=== PATIENT | male | born 1990 | race Caucasian/White ===

== ENCOUNTER 2024-07-27 10:08 | Emergency (ER) | payer OTHER, SELFPAY ==
[2024-07-27 10:14] VITALS: BP 157/95; PULSE 77; TEMP 36.6; O2SAT 100; BMI 24.0
[2024-07-27 10:52] LABS: Basophils Percent Auto 0.6 % (0.2-2.0); Eosinophils Absolute Auto 0.2 10^3/uL (0.0-0.7); Eosinophils Percent Auto 4.8 % (0.9-7.0); Immature Granulocytes Abs Auto 0.01 10^3/uL (0.00-0.03); Immature Granulocytes Pct Auto 0.2 % (0.0-0.5); Lymphocytes Absolute Auto 2.1 10^3/uL (1.2-3.8); Mean Corpuscular HGB Conc 33.3 g/dL (29.9-35.2); Mean Corpuscular Hemoglobin 29.4 pg (25.9-34.0); Mean Corpuscular Volume 88.1 fL (80.0-94.0); Mean Platelet Volume 8.7 fL (9.5-13.5); Monocytes Absolute Auto 0.5 10^3/uL (0.3-0.8); Monocytes Percent Auto 10.1 % (1.7-12.0); Neutrophils Absolute Auto 1.9 10^3/uL (1.4-6.5); Neutrophils Percent Auto 40.3 % (43.0-75.0); Platelet Count 286 10^3/uL (150-450); Red Blood Count 4.77 10^6/uL (4.70-6.10); Red Cell Distribution Width 12.2 % (11.0-15.0); White Blood Count 4.8 10^3/uL (4.0-11.0)
[2024-07-27 10:52] LABS: Bilirubin Urine NEGATIVE (NEGATIVE); Blood Urine NEGATIVE (NEGATIVE); Clarity Urine CLEAR (CLEAR); Color Urine LT. YELLOW (YELLOW); Glucose Urine UA NEGATIVE (NEGATIVE); Ketones Urine NEGATIVE (NEGATIVE); Leukocyte Esterase Urine NEGATIVE (NEGATIVE); Nitrite Urine NEGATIVE (NEGATIVE); Protein Urine NEGATIVE (NEG/TRACE); Specific Gravity Urine <=1.005 (1.005-1.025); Urobilinogen Urine 0.2 EU/dL (0.2-1.0); pH Urine 6.5 (5.0-9.0)
--- NOTE | 2024-07-27 10:54 | PC.NURSE ---
pt is here today for an intermittent chronic issue with his legs feeling like jello which makes it hard for him to walk. pt has been seen by multiple Rheumatologists and was told he does not have RA. pt was at work today and threw up so they sent him home. pt admits he;'s been randomly vomiting for years on and off.
[2024-07-27 10:58] LABS: Urine Microscopic Indicated NO
[2024-07-27] MEDS: KETOROLAC TROMETHAMINE 30 MG/ML VIAL 15 MG IVP (11:02)
[2024-07-27 11:06] LABS: Influenza Virus A Antigen Negative; Influenza Virus B Antigen Negative; Internal Control Within Normal Limits; SARS-CoV-2 Ag NEGATIVE (NEGATIVE)
[2024-07-27 11:15] LABS: Alanine Aminotransferase 17 U/L (16-63); Albumin Globulin Ratio 1.6; Albumin Level 4.3 g/dL (3.4-5.0); Alkaline Phosphatase 100 U/L (46-116); Anion Gap 12.6; Aspartate Amino Transferase 21 U/L (15-37); BUN Creatinine Ratio 8.3; Bilirubin Total 0.5 mg/dL (0.2-1.0); Calcium 9.1 mg/dL (8.5-10.1); Carbon Dioxide 30.1 mmol/L (21.0-32.0); Chloride 103 mmol/L (98-107); Estimated GFR (African America >60 (>=60 mL/min/1.73m^2); Estimated GFR (Non-African Ame >60 (>=60 mL/min/1.73m^2); Globulin 2.7 g/dL; Glucose 90 mg/dL (74-106); Potassium 3.7 mmol/L (3.5-5.1); Sodium 142 mmol/L (136-145)
--- NOTE | 2024-07-27 11:15 | ED.GENADUL1 ---
HPI HPI - General Adult General Chief complaint: Extremity Problem, Nontraumatic Stated complaint: LOWER EXTREMITY PAIN Time Seen by Provider: 07/27/24 10:09 Source: patient Mode of arrival: walk-in Limitations: physical limitation History of Present Illness HPI narrative: Patient presents to ED complaining of lower extremity pain. He states he has bilateral knee pain and had difficulty walking today. He said this is a chronic issue on and off since he was 12 years old but it does not really ever hurt so bad that he cannot walk. He said he had an episode of vomiting today while he was at work so they told him to go home. He said his legs were hurting so he could not walk. Patient states when he was younger he had a growth spurt and ever since then he has had pain in his legs on and off since he was 12. He also reports frequency of urination. He states he has been to multiple rheumatoid doctors in the past and has had 30 vials of blood checked in the past to rule in or out any disease processes. He said all of this comes back normal and they cannot figure out what is wrong with him. No fevers no redness no swelling of the joints. He states it is affecting the knee joints but not the ankles or shoulders or anything else. He denies any cough cold symptoms or shortness of breath. Patient is resting comfortably in the bed in no acute distress Related Data Allergies Allergy/AdvReac Type Severity Reaction Status Date / Time No Known Drug Allergies Allergy Verified 07/27/24 10:46 Opioid HPI Opioid Management Most Recent Opioid Data: No Data to Display Review of Systems ROS Status of ROS 10 or more systems reviewed and unremarkable except as noted in history and below PFSH PFSH Social History Little interest or pleasure in doing things: not at all Feeling down, depressed, or hopeless: not at all Exam Narrative Exam Narrative: Time Seen: [] Vital Signs: [Per nurse's notes.] General: [Alert] Skin: [Warm, dry, no rash.] Head: [Normocephalic, atraumatic.] Neck: [Supple, trachea midline.] Eye: [Pupils are equal, round and reactive to light, extraocular movements are intact, normal conjunctiva.] Ears, nose, mouth and throat: oral mucosa moist. Cardiovascular: [Regular rate and rhythm, no murmur.] Respiratory: [Lungs are clear to auscultation, respirations are non-labored, breath sounds are equal.] Chest wall: [No tenderness, no deformity.] Gastrointestinal: [Soft, nontender, non distended, normal bowel sounds.] MSK: 5 out of 5 muscle strength x 4 extremities no calf pain or edema no swelling of the knee joints no erythema no ballottement normal distal pulses and sensation Lymphatics: [No lymphadenopathy.] Psychiatric: [Cooperative, appropriate mood & affect.] Neurological: [Alert and oriented to person, place, time, and situation, no focal neurological deficit observed.] Constitutional Vital Signs, click to edit/add: Last Vital Signs Temp 97.8 F 07/27/24 10:14 Pulse 77 07/27/24 10:14 Resp 18 07/27/24 10:14 BP 157/95 H 07/27/24 10:14 Pulse Ox 100 07/27/24 10:14 O2 Del Method Room Air 07/27/24 10:14 Course Vital Signs Vital signs: Vital Signs Temperature 97.8 F 07/27/24 10:14 Pulse Rate 77 07/27/24 10:14 Respiratory Rate 18 07/27/24 10:14 Blood Pressure 157/95 H 07/27/24 10:14 Pulse Oximetry 100 07/27/24 10:14 Oxygen Delivery Method Room Air 07/27/24 10:14 Temperature 97.8 F 07/27/24 10:14 Pulse Rate 77 07/27/24 10:14 Respiratory Rate 18 07/27/24 10:14 Blood Pressure 157/95 H 07/27/24 10:14 Pulse Oximetry 100 07/27/24 10:14 Oxygen Delivery Method Room Air 07/27/24 10:14 Medical Decision Making [facility] Narrative Medical decision making narrative: Patient's labs are negative for any acute findings. No evidence of diabetes, urinary infection flu or COVID. No evidence of increased white blood cell count or electrolyte abnormality. It seems like this has been a chronic issue on and off for the patient throughout many years. He has seen many specialists for this as well. I do not see any evidence of an acute new emergency or surgical problem at this time. Please continue to follow-up outpatient concerning your symptoms otherwise return to ED if needed. Differential Diagnosis Differential Diagnosis: Viral syndrome, cellulitis, gout, joint pain Lab Data Lab results reviewed: Yes I reviewed the patient's lab results Labs: Lab Results 07/27/24 07/27/24 07/27/24 Range/Units 10:35 10:40 10:45 WBC 4.8 (4.0-11.0) 10^3/uL RBC 4.77 (4.70-6.10) 10^6/uL Hgb 14.0 (14.0-18.0) g/dL Hct 42.0 (42.0-54.0) % MCV 88.1 (80.0-94.0) fL MCH 29.4 (25.9-34.0) pg MCHC 33.3 (29.9-35.2) g/dL RDW 12.2 (11.0-15.0) % Plt Count 286 (150-450) 10^3/uL MPV 8.7 L (9.5-13.5) fL Neut % (Auto) 40.3 L (43.0-75.0) % Lymph % (Auto) 44.0 (20.5-60.0) % [place] % (Auto) 10.1 (1.7-12.0) % Eos % (Auto) 4.8 (0.9-7.0) % Baso % (Auto) 0.6 (0.2-2.0) % Neut # (Auto) 1.9 (1.4-6.5) 10^3/uL Lymph # (Auto) 2.1 (1.2-3.8) 10^3/uL [place] # (Auto) 0.5 (0.3-0.8) 10^3/uL Eos # (Auto) 0.2 (0.0-0.7) 10^3/uL Baso # (Auto) 0.0 (0.0-0.1) 10^3/uL Abs Immat Gran (auto) 0.01 (0.00-0.03) 10^3/uL Imm/Tot Granulo (auto) 0.2 (0.0-0.5) % Sodium 142 (136-145) mmol/L Potassium 3.7 (3.5-5.1) mmol/L Chloride 103 (98-107) mmol/L Carbon Dioxide 30.1 (21.0-32.0) mmol/L Anion Gap 12.6 BUN 8.0 (7.0-18.0) mg/dL Creatinine 0.96 (0.70-1.30) mg/dL Est GFR ( Amer) >60 (>=60 mL/min/1.73m^2) Est GFR (Non-Af Amer) >60 (>=60 mL/min/1.73m^2) BUN/Creatinine Ratio 8.3 Glucose 90 (74-106) mg/dL Calcium 9.1 (8.5-10.1) mg/dL Total Bilirubin 0.5 (0.2-1.0) mg/dL AST 21 (15-37) U/L ALT 17 (16-63) U/L Alkaline Phosphatase 100 (46-116) U/L Total Protein 7.0 (6.4-8.2) g/dL Albumin 4.3 (3.4-5.0) g/dL Globulin 2.7 g/dL Albumin/Globulin Ratio 1.6 Urine Color Lt. yellow (YELLOW) Urine Clarity Clear (CLEAR) Urine pH 6.5 (5.0-9.0) Ur Specific [place] <=1.005 A (1.005-1.025) Urine Protein Negative (NEG/TRACE) mg/dL Urine Glucose (UA) Negative (NEGATIVE) mg/dL Urine Ketones Negative (NEGATIVE) mg/dL Urine Occult Blood Negative (NEGATIVE) Urine Nitrite Negative (NEGATIVE) Urine Bilirubin Negative (NEGATIVE) Urine Urobilinogen 0.2 (0.2-1.0) EU/dL Ur Leukocyte Esterase Negative (NEGATIVE) Influenza Type A Ag Negative Influenza Type B Ag Negative SARS-CoV-2 Ag (CV2AG) Negative (NEGATIVE) Discharge Plan Discharge Chief Complaint: Extremity Problem, Nontraumatic Clinical Impression: Bilateral knee pain Patient Disposition: Home, Self-Care Time of Disposition Decision: 11:20 Condition: Good Mode of Transportation: Private Vehicle Print Language: [place] Instructions: Arthralgia (ED) Referrals: Theresa Guerra NP [Primary Care Provider] - 1 week
== END 2024-07-27 11:28 | disposition home or self-care (01) ==
PROVIDERS: Emergency Provider Emergency Medicine; Family Provider Family Medicine
DX: M25.561 Pain in right knee (principal); M25.562 Pain in left knee
CPT/HCPCS: 36415; 80053; 81003; 85025; 87804; 87811; 96374; 99284; J1885

== ENCOUNTER 2024-07-29 13:06 | Emergency (ER) | payer OTHER, SELFPAY ==
[2024-07-29 13:22] VITALS: BP 132/93; PULSE 85; TEMP 36.6; O2SAT 99; BMI 27.4
[2024-07-29 14:33] LABS: Basophils Percent Auto 0.6 % (0.2-2.0); Eosinophils Absolute Auto 0.2 10^3/uL (0.0-0.7); Eosinophils Percent Auto 2.9 % (0.9-7.0); Hematocrit 42.4 % (42.0-54.0); Hemoglobin 14.3 g/dL (14.0-18.0); Immature Granulocytes Abs Auto 0.01 10^3/uL (0.00-0.03); Immature Granulocytes Pct Auto 0.2 % (0.0-0.5); Lymphocytes Absolute Auto 1.9 10^3/uL (1.2-3.8); Lymphocytes Percent Auto 36.5 % (20.5-60.0); Mean Corpuscular HGB Conc 33.7 g/dL (29.9-35.2); Mean Corpuscular Hemoglobin 29.4 pg (25.9-34.0); Mean Corpuscular Volume 87.2 fL (80.0-94.0); Mean Platelet Volume 8.6 fL (9.5-13.5); Monocytes Absolute Auto 0.5 10^3/uL (0.3-0.8); Monocytes Percent Auto 9.4 % (1.7-12.0); Neutrophils Absolute Auto 2.6 10^3/uL (1.4-6.5); Neutrophils Percent Auto 50.4 % (43.0-75.0); Platelet Count 301 10^3/uL (150-450); Red Blood Count 4.86 10^6/uL (4.70-6.10); Red Cell Distribution Width 12.3 % (11.0-15.0); White Blood Count 5.1 10^3/uL (4.0-11.0)
[2024-07-29 14:40] LABS: Erythrocyte Sedimentation Rate <1 mm/hr (<=15)
[2024-07-29 14:50] VITALS: BP 162/99; PULSE 80; O2SAT 98
[2024-07-29 14:52] LABS: Creatine Kinase 87 U/L (39-308)
--- NOTE | 2024-07-29 14:57 | ED.GENADUL1 ---
HPI HPI - General Adult General Chief complaint: Weakness Stated complaint: BODY STIFFNESS Time Seen by Provider: 07/29/24 13:26 Mode of arrival: walk-in History of Present Illness HPI narrative: 34-year-old male to the emergency department chief complaint of generalized weakness, stiffness, joint pain. Patient reports that he was seen for this recently in the emergency department and was told that everything looked okay. Patient reports he is not feeling improved. Symptoms have worsened since Thursday. Patient reports that he has had issues ever since he was very young. He reports he has been worked up by rheumatology several times. He was told once that he had rheumatoid arthritis and then told again that he did not. He has recently been told that he may have sarcoidosis but they do not want to give him the diagnosis yet. He reports that he has had lab work performed many times for this. No one can figure out what is wrong with him. He reports he has been on short-term disability for this. He reports that he has chronic pain in his joints. Patient reports that he has ADHD and was on medications for many years. His parents became concerned that it was stunting his growth so they stopped the medications. He reports that he grew 6 inches in one summer and has had the symptoms ever since. Patient concerned that his symptoms are not improving. He has follow-up with his sewing demonstrator on Thursday. Related Data Allergies Allergy/AdvReac Type Severity Reaction Status Date / Time No Known Drug Allergies Allergy Verified 07/27/24 10:46 Opioid HPI Opioid Management Most Recent Opioid Data: No Data to Display Review of Systems ROS Status of ROS 10 or more systems reviewed and unremarkable except as noted in history and below PFSH PFSH Social History Little interest or pleasure in doing things: not at all Feeling down, depressed, or hopeless: not at all Exam Narrative Exam Narrative: VITALS: I have reviewed the triage vital signs. GENERAL: Well developed, well appearing adult in no acute distress. NEURO: Alert and oriented. Moves all extremities. Face is symmetric and expressive. EYES: PERRL. No scleral icterus or conjunctival injection. No discharge. HENT: Normocephalic, atraumatic. Hearing is grossly intact. Nares grossly patent and without discharge. Mucous membranes moist. NECK: No JVD. Patient moves neck without restriction. CARDIO: Rhythm regular. Normal rate. No murmur, rub, or gallop. Pulses equal bilaterally in the upper and lower extremity. No lower extremity edema. PULM: Lungs clear to auscultation in all renee. No wheezes, rales, or rhonchi. No conversational dyspnea. No splinting, stridor, or accessory muscle use. EXTREMITIES: Symmetric muscle bulk. No joint swelling. No clubbing, cyanosis, or deformity. SKIN: Warm and dry. Normal turgor. No rash or lesions appreciated. PSYCH: Strange affect Constitutional Vital Signs, click to edit/add: Last Vital Signs Temp 97.9 F 07/29/24 13:22 Pulse 80 07/29/24 14:50 Resp 20 07/29/24 14:50 BP 162/99 H 07/29/24 14:50 Pulse Ox 98 07/29/24 14:50 O2 Del Method Room Air 07/29/24 14:50 Course Vital Signs Vital signs: Vital Signs Temperature 97.9 F 07/29/24 13:22 Pulse Rate 85 07/29/24 13:22 Respiratory Rate 18 07/29/24 13:22 Blood Pressure 132/93 H 07/29/24 13:22 Pulse Oximetry 99 07/29/24 13:22 Temperature 97.9 F 07/29/24 13:22 Pulse Rate 80 07/29/24 14:50 Respiratory Rate 20 07/29/24 14:50 Blood Pressure 162/99 H 07/29/24 14:50 Pulse Oximetry 98 07/29/24 14:50 Oxygen Delivery Method Room Air 07/29/24 14:50 Medical Decision Making [facility] Narrative Medical decision making narrative: 34-year-old male to the emergency department with chief complaint of generalized bodyaches, generalized weakness with acute on chronic features. Vital stable, the patient is afebrile. He does not appear to have any weakness. He has normal vitals. He is already been evaluated for this. Patient is very verbose as an explanation of his previous workups. He has follow-up with his sewing demonstrator on Thursday. I had a difficult conversation with the patient that there is likely not much we can do for him in the emergency department. I am happy to repeat some labs. Given his history of suspected autoimmune/rheumatoid arthritis etiology I am happy to give him a dose of steroids while he awaits further treatment from his sewing demonstrator. He is okay with this plan. Lab work is unremarkable. Patient was given Kenalog and Tylenol for his symptoms. He will follow-up with his sewing demonstrator on Thursday. Return precautions were discussed. All questions were answered. The patient was discharged home. Medical Records Medical records reviewed: Yes I reviewed the patient's medical records Lab Data Lab results reviewed: Yes I reviewed the patient's lab results Labs: Lab Results 07/29/24 Range/Units 14:15 WBC 5.1 (4.0-11.0) 10^3/uL RBC 4.86 (4.70-6.10) 10^6/uL Hgb 14.3 (14.0-18.0) g/dL Hct 42.4 (42.0-54.0) % MCV 87.2 (80.0-94.0) fL MCH 29.4 (25.9-34.0) pg MCHC 33.7 (29.9-35.2) g/dL RDW 12.3 (11.0-15.0) % Plt Count 301 (150-450) 10^3/uL MPV 8.6 L (9.5-13.5) fL Neut % (Auto) 50.4 (43.0-75.0) % Lymph % (Auto) 36.5 (20.5-60.0) % [place] % (Auto) 9.4 (1.7-12.0) % Eos % (Auto) 2.9 (0.9-7.0) % Baso % (Auto) 0.6 (0.2-2.0) % Neut # (Auto) 2.6 (1.4-6.5) 10^3/uL Lymph # (Auto) 1.9 (1.2-3.8) 10^3/uL [place] # (Auto) 0.5 (0.3-0.8) 10^3/uL Eos # (Auto) 0.2 (0.0-0.7) 10^3/uL Baso # (Auto) 0.0 (0.0-0.1) 10^3/uL Abs Immat Gran (auto) 0.01 (0.00-0.03) 10^3/uL Imm/Tot Granulo (auto) 0.2 (0.0-0.5) % ESR <1 (<=15) mm/hr Sodium 142 (136-145) mmol/L Potassium 3.8 (3.5-5.1) mmol/L Chloride 104 (98-107) mmol/L Carbon Dioxide 31.0 (21.0-32.0) mmol/L Anion Gap 10.8 BUN 7.0 (7.0-18.0) mg/dL Creatinine 0.97 (0.70-1.30) mg/dL Est GFR ( Amer) >60 (>=60 mL/min/1.73m^2) Est GFR (Non-Af Amer) >60 (>=60 mL/min/1.73m^2) BUN/Creatinine Ratio 7.2 Glucose 97 (74-106) mg/dL Calcium 9.4 (8.5-10.1) mg/dL Total Creatine Kinase 87 (39-308) U/L C-Reactive Protein <0.50 (<=0.50) mg/dL TSH & Free T4 Interp 1.599 (0.358-3.740) uIU/mL Discharge Plan Discharge Chief Complaint: Weakness Clinical Impression: Encounter for medical screening examination Patient Disposition: Home, Self-Care Time of Disposition Decision: 17:15 Condition: Good Mode of Transportation: Private Vehicle Print Language: Czech Instructions: Arthritis (ED) Additional Instructions: Call the office of your primary care doctor to arrange for follow-up within the above-stated timeframe. Your ED visit was focused on your acute issue and does not replace primary care. You should review your labs, imaging, and diagnoses from this ED visit with your primary care physician. There may be non-emergent/ incidental findings that need further evaluation. You should review your vital signs including blood pressure with your PCP. If you were prescribed medications you should discuss possible side-effects and drug interactions with your pharmacist. Call 911 or go to the nearest Emergency Department if you develop any new or worsening symptoms. Referrals: Theresa Guerra NP [Primary Care Provider] - 1 week Discharge Date/Time: 07/29/24 17:54
[2024-07-29 15:01] LABS: TSH W/ REFLEX FT4 1.599 uIU/mL (0.358-3.740)
[2024-07-29 15:11] LABS: Anion Gap 10.8; BUN Creatinine Ratio 7.2; C Reactive Protein <0.50 mg/dL (<=0.50); Calcium 9.4 mg/dL (8.5-10.1); Chloride 104 mmol/L (98-107); Estimated GFR (African America >60 (>=60 mL/min/1.73m^2); Estimated GFR (Non-African Ame >60 (>=60 mL/min/1.73m^2); Glucose 97 mg/dL (74-106); Potassium 3.8 mmol/L (3.5-5.1); Sodium 142 mmol/L (136-145)
[2024-07-29] MEDS: ACETAMINOPHEN 325 MG TABLET 650 MG PO (16:59)
[2024-07-29] MEDS: TRIAMCINOLONE ACETONIDE 40 MG/ML VIAL IM (16:59)
== END 2024-07-29 17:54 | disposition home or self-care (01) ==
PROVIDERS: Emergency Provider Student in an Organized Health Care Education/Training Program; Family Provider Family Medicine
DX: Z13.89 Encounter for screening for other disorder (principal); R53.1 Weakness; R52 Pain, unspecified
CPT/HCPCS: 36415; 80048; 82550; 84443; 85025; 85652; 86140; 87040; 96372; 99285; J3301

== ENCOUNTER 2024-08-17 06:47 | Outpatient (OUT) | payer OTHER, SELFPAY ==
--- NOTE | 2024-08-17 06:50 | MR_ITS ---
The [address] [address] Patient Name: ADORE ZEPEDA MRN: [id number] date: 1990 Sex: M Assigned Patient Location: MRI Current Patient Location: MRI Accession/Order Number: [id number] Exam Date: 08/17/2024 12:28 Report Date: 08/17/2024 12:46 At the request of: DEBORAH FRAGOSO MD Procedure: MR head/brain wo/w con MRI BRAIN WITHOUT AND WITH INTRAVENOUS CONTRAST CLINICAL DATA: Headaches, fatigue and double vision COMPARISON: None Multiecho, multiplanar imaging of the brain was performed before and after intravenous administration of 14 mL of gadolinium. There is mild cerebellar atrophy. The ventricles are normal in size and position. There are no significant areas of abnormal signal intensity or enhancement within the supra or infratentorial brain. There is no restricted diffusion to suggest a recent ischemic event. No extra-axial collections or mass effect are seen. No midline abnormalities are noted. The imaged paranasal sinuses are clear. MR/MR head/brain wo/w con IMPRESSION: NO ACUTE INTRACRANIAL FINDINGS. Impression dictated by: Dara Hickman M.D.08/17/2024 12:46 PM Dictation Location: [place] [address] Electronically authenticated by: [id number] Y Date: 08/17/2024 12:46
--- OUTSIDE RECORDS SUMMARY | 2024-08-17 06:50 | XMS_ITS | CCD ---
Author Organization [facility] Team Providers Care Boiler/Chiller Technician Name Role Phone PHYSICIAN, DEFAULT Unavailable Unavailable PHYSICIAN, DEFAULT Unavailable Unavailable [facility] Unava ilable IDALIA, DR ERASTO Acuna Consulting Unavailable FRIEDMAN, DR ERASTO Acuna Admitting Unavailable IDALIA, DR ERASTO Acuna Attending Unavailable MARKER, DR ROQUE Admitting Unavailable MARKER, DR ROQUE Attending Unavailable [facility] Unava ilable MARKER, DR ROQUE Consulting Unavailable MONTANEZ, BRYAN Consulting Unavailable ALASTAL, YASEEN S Admitting Unavailable ALASTAL, YASEEN S Attending Unavailable RUMSCHLAG, MARY K Primary Care Unavailable GLENDA ANDERSON Attending Unavailable RUMSCHLAG, MARY K Primary Care Unavailable ALASTAL, YASEEN S Attending Unavailable ALASTAL, YASEEN S Referring Unavailable RUMSCHLAG, MARY K Primary Care Unavailable DO Aurelia Streeter Primary Care Provider MD Alejandra Leonard Attending Provider [phone] ALEJANDRA MANN Attending Unavailable ALEJANDRA MANN Referring Unavailable ALEJANDRA MANN Attending Unavailable ALEJANDRA MANN Attending Unavailable ALEJANDRA MANN Referring Unavailable Marshal Streeter DO Primary Care Provider Aurelia Streeter DO Primary Care Provider Alejandra Leonard MD Attending Provider [phone] Mari JOSHUACShanda Primary Care Provider Alejandra Leonard Admitting Unavailable Alejandra Lenoard Attending Unavailable Aurelia Streeter Primary Care Unavailable Alejandra Leonard Admitting Unavailable Alejandra Leonard Attending Unavailable Aurelia Streeter Primary Care Unavailable Alejandra Leonard Admitting Unavailable Alejandra Leonard Attending Unavailable Shanda Guerra Primary Care Unavailable Medications Current Medications Medication Drug Class(es) Dates Sig (Normalized) Sig (Original) lamoTRIgine 25 mg oral tablet (2 sources) Mood Stabilizer, Anti-epileptic Agent Start: 02-08-2024 lamoTRIgine (LaMICtal) 25 MG tablet Take by mouth Daily 02/08/2024 Active nabumetone 750 mg oral tablet (2 sources) Nonsteroidal Anti-inflammatory Drug Start: 02-08-2024 take 1 tablet by mouth in the morning nabumetone (Relafen) 750 MG tablet Take 750 mg by mouth in the morning and 750 mg before bedtime. 02/08/2024 Active omeprazole 40 mg delayed release oral capsule (4 sources) Proton Pump Inhibitor Start: 01-01-2024 omeprazole (PriLOSEC) [address] capsule TAKE 1 CAPSULE BY MOUTH EVERY DAY 30 MINUTES BEFORE morning meal 01/01/2024 Active Start: 11-03-2023 End: 02-09-2024 take 1 capsule by mouth once daily at breakfast omeprazole (PriLOSEC) [address] capsule take 1 capsule by mouth once daily 30 MINUTES PRIOR TO BREAKFAST/OTHER MEDS 11/03/2023 02/09/2024 Discontinued (Therapy completed) 24 hr paliperidone 6 mg extended release oral tablet (2 sources) Atypical Antipsychotic Start: 10-20-2023 take 1 tablet by mouth once daily paliperidone (Invega) 6 MG 24 hr tablet Take 6 mg by mouth Daily 10/20/2023 Active sertraline 100 mg oral tablet (2 sources) Serotonin Reuptake Inhibitor Start: 10-20-2023 sertraline (Zoloft) 100 MG tablet Take 150 mg by mouth Daily 10/20/2023 Active Completed/Discontinued Medications Medication Drug Class(es) Dates Sig (Normalized) Sig (Original) etodolac 500 mg oral tablet (2 sources) Nonsteroidal Anti-inflammatory Drug Start: 01-18-2024 End: 02-09-2024 take 1 tablet by mouth in the morning etodolac (Lodine) 500 MG tablet Take 500 mg by mouth in the morning and 500 mg before bedtime. 01/18/2024 02/09/2024 Discontinued (Therapy completed) 24 hr nicotine 0.583 mg/hr transdermal system (2 sources) Cholinergic Nicotinic Agonist Start: 01-01-2024 End: 02-09-2024 nicotine (Nicoderm, Step 2) 14 MG/24HR patch APPLY ONE PATCH to skin ONCE DAILY 01/01/2024 02/09/2024 Discontinued (Therapy completed) Problems Active Problems Problem Classification Problem Date Documented Date Episodic/Chronic Anxiety disorders (2 sources) Anxiety; Translations: [Anxiety disorder, unspecified] Onset: 11-02-2023 11-02-2023 Chronic Asthma (2 sources) Asthma; Translations: [Unspecified asthma, uncomplicated] Onset: 11-02-2023 11-02-2023 Chronic Disorders usually diagnosed in infancy, childhood, or adolescence (2 sources) Attention deficit hyperactivity disorder, predominantly inattentive type; Translations: [Other specified behavioral and emotional disorders with onset usually occurring in childhood and adolescence] Onset: 11-02-2023 11-02-2023 Chronic Immunity disorders (1 source) Sarcoidosis, unspecified; Translations: [Sarcoidosis, unspecified] Onset: 08-01-2024 Chronic Joint disorders and dislocations; trauma-related (4 sources) Disorder of left patellofemoral joint; Translations: [Patellofemoral disorders, left knee] Onset: 11-02-2023 02-09-2024 Chronic Joint disorders and dislocations; trauma-related (2 sources) Disorder of right patellofemoral joint; Translations: [Patellofemoral disorders, right knee] Onset: 11-25-2023 11-25-2023 Chronic Nausea and vomiting (3 sources) Nausea with vomiting, unspecified; Translations: [NAUSEA WITH VOMITING UNSPECIFIED] Onset: 04-05-2022 Episodic Noninfectious gastroenteritis (1 source) Noninfective gastroenteritis and colitis, unspecified; Translations: [NONINFECTIVE GE AND COLITIS UNS] Onset: 04-08-2022 Episodic Other nervous system disorders (2 sources) Chronic pain; Translations: [Other chronic pain] Onset: 11-02-2023 11-02-2023 Chronic Rheumatoid arthritis and related disease (6 sources) Rheumatoid arthritis of multiple joints; Translations: [Rheumatoid arthritis with rheumatoid factor of multiple sites without organ or systems involvement] Onset: 11-02-2023 Resolved: 11-02-2023 02-09-2024 Chronic Substance-related disorders (1 source) Nicotine dependence, cigarettes, uncomplicated; Translations: [NICOTINE DEPEND CIGARETTES UNCOMP] Onset: 10-04-2021 Chronic Unclassified (1 source) CONTACT W/AND (SUSP) EXPOS COVID-19; Translations: [CONTACT W/AND (SUSP) EXPOS COVID-19] Onset: 04-08-2022 Past or Other Problems Problem Classification Problem Date Documented Da te Episodic/Chronic Immunizations and screening for infectious disease (1 source) Raised antibody titer; Translations: [Raised antibody titer] Onset: 12-10-2023 Episodic Other non-traumatic joint disorders (2 sources) Pain in left knee; Translations: [Pain in joint, lower leg] 02-09-2024 Episodic Residual codes; unclassified (2 sources) Insomnia; Translations: [Insomnia, unspecified] Onset: 11-02-2023 11-02-2023 Episodic Residual codes; unclassified (2 sources) Tobacco user; Translations: [Tobacco use] Onset: 02-09-2024 02-09-2024 Episodic Results Test Name Value Interpretation Reference Range Facility XR chest 2V*on 08-02-2024 XR chest 2V* [facility] [place] [address] [place] [address] XRay Report Signed Patient: Hugo Sam V MR#: [id number] : 1990 Acct:[id number] Age/Sex: 34 / M ADM Date: 08/01/24 Loc: XD Room: Type: [facility] Attending Dr: Alejandra Leonard MD Copies to: Alejandra Leonard MD Ordering Provider: Alejandra Leonard MD Date of Service: 08/01/24 XR/XR chest 2V*: SARCOIDOSIS Plain film chest 2 view HISTORY: Body stiffness. History sarcoidosis COMPARISON: None FINDINGS: SUPPORT DEVICES: None POSTSURGICAL CHANGES: None HEART: Within normal limits PULMONARY JENNIE: Within normal limits MEDIASTINUM: Unremarkable LUNGS AND PLEURA: No acute lung process, pleural effusion or pneumothorax identified. BONY STRUCTURES: Intact ADDITIONAL FINDINGS None XR/XR chest 2V* IMPRESSION: No acute process. No lung findings of sarcoidosis. No adenopathy. Impression dictated by: Frederick Galindo M.D.08/02/2024 8:43 AM Dictation Location: [place] [address] Transcribed By: [facility] 08/02/24 0843 Dictated By: Frederick Galindo DO 08/02/2442 Signed By: 08/02/2443 Normal [facility] Aldolaseon 08-01-2024 Aldolase 3.6 U/L Normal 3.3-10.3 [facility] Comment on above: Result Comment: Perf ormed at: [facility] [id number] Plant Health Care Technician: Je Reveles PhD, Phone: [phone] PERFORMED BY: [place] [address] PATHOLOGIST CRIME ANALYST AME RAHMAN M.D. Performed By: #### C BC, URIC, CRP, CK, ESR, TSH3, T4F, ADDONUAPLUS, CMP #### [address] #### RPR W RFX, HBCAB, HBSAG, QUANT TB, HCV RX PCR, HBSAB, ALDOLASE #### [facility] , Angiotensin Converting Enzym josé 08-01-2024 Angiotensin converting enzyme [Catalytic activity/Vol] 57 U/L Normal 14-82 [facility] Comment on above: Result Comment: Perf ormed at: [facility] [address] [id number] Plant Health Care Technician: Je Reveles PhD, Phone: [phone] Performed By: #### C BC, URIC, CRP, CK, ESR, TSH3, T4F, ADDONUAPLUS, CMP #### [facility] [address] [place] [address] [place] #### RPR W RFX, HBCAB, HBSAG, QUANT TB, HCV RX PCR, HBSAB, ALDOLASE #### [facility] , C reactive protein [Mass/vol ume] in Serum or PlasmaOrdered By: Alejandra Leonard on 08-01-2024 CRP [Mass/Vol] C reactive protein [Mass/volume] in Serum or Plasma 0.0-0.5 [facility] C-Reactive Proteinon CRP [Mass/Vol] mg/L Normal 0.0-0.5 [facility] Comment on above: Performed By: #### C BC, URIC, CRP, CK, ESR, TSH3, T4F, ADDONUAPLUS, CMP #### [address] #### RPR W RFX, HBCAB, HBSAG, QUANT TB, HCV RX PCR, HBSAB, ALDOLASE #### [facility] , Erythrocyte Sedimentation Ra timmy 08-01-2024 ESR (Bld) [Velocity] 4 mm/h Normal 0-14 [facility] Comment on above: Result Comment: PERF ORMED BY: [place] [address] PATHOLOGIST CRIME ANALYST AME RAHMAN M.D. Performed By: #### C BC, URIC, CRP, CK, ESR, TSH3, T4F, ADDONUAPLUS, CMP #### [address] #### RPR W RFX, HBCAB, HBSAG, QUANT TB, HCV RX PCR, HBSAB, ALDOLASE #### [facility] , Erythrocyte sedimentation ra te by Photometric methodOrdered By: Alejandra Leonard on 08-01-2024 ESR Photometric method (Bld) [Velocity] Erythrocyte sedimentation rate by Photometric method 0-14 [facility] Free T4 (Free Thyroxine)on 0 08-01-2024 Free T4 [Mass/Vol] 0.87 ng/dL Normal 0.61-1.12 [facility] Comment on above: Performed By: #### C BC, URIC, CRP, CK, ESR, TSH3, T4F, ADDONUAPLUS, CMP #### [facility] [address] [place] [address] [place] #### RPR W RFX, HBCAB, HBSAG, QUANT TB, HCV RX PCR, HBSAB, ALDOLASE #### [facility] , Myoglobinon 08-01-2024 Myoglobin [Mass/Vol] ng/mL Low 28-72 [facility] Comment on above: Result Comment: Perf ormed at: - [facility] [address] [id number] Plant Health Care Technician: Je Reveles PhD, Phone: [phone] PERFORMED BY: [place] [address] PATHOLOGIST CRIME ANALYST AME RAHMAN M.D. Performed By: #### C BC, URIC, CRP, CK, ESR, TSH3, T4F, ADDONUAPLUS, CMP #### [address] #### RPR W RFX, HBCAB, HBSAG, QUANT TB, HCV RX PCR, HBSAB, ALDOLASE #### [facility] , Thyroid Stimulating Hormoneo n 08-01-2024 TSH Qn 3.57 m[IU]/L Normal 0.45-5.33 [facility] Comment on above: Result Comment: PERF ORMED BY: [place] [address] PATHOLOGIST CRIME ANALYST AME RAHMAN M.D. Performed By: #### C BC, URIC, CRP, CK, ESR, TSH3, T4F, ADDONUAPLUS, CMP #### [address] #### RPR W RFX, HBCAB, HBSAG, QUANT TB, HCV RX PCR, HBSAB, ALDOLASE #### [facility] , Thyrotropin [Units/volume] i n Serum or PlasmaOrdered By: Alejandra Leonard on 08-01-2024 TSH Qn Thyrotropin [Units/v olume] in Serum or Plasma 0.45-5.33 [facility] Thyroxine (T4) free [Mass/vo lume] in Serum or PlasmaOrdered By: Alejandra Leonard on 08-01-2024 Free T4 [Mass/Vol] Thyroxine (T4) free [Mass/volume] in Serum or Plasma 0.61-1.12 [facility] EFRAIN Antinuclear Antibodieson 12-10-2023 Antinuclear Abs, IFA Negative Normal . [facility] Comment on above: Result Comment: Nega tive <1:80 Borderline 1:80 Positive >1:80 ICAP nomenclature: AC-0 For more information about Hep-2 cell patterns use ANApatterns.org, the official website for the International Consensus on Antinuclear Antibody (EFRAIN) Patterns (ICAP). Performed at: - [facility] [address] [id number] Plant Health Care Technician: Je Reveles PhD, Phone: [phone] Performed By: #### C BC, URIC, CRP, CK, ESR, TSH3, T4F, ADDONUAPLUS, CMP #### [facility] [address] [place] [address] #### RPR W RFX, HBCAB, HBSAG, QUANT TB, HCV RX PCR, HBSAB, ALDOLASE #### [facility] , Activated partial thrombopla stin time (aPTT) in platelet poor plasma by coagulation aOrdered By: Alejandra Leonard on 12-10-2023 aPTT Coag (PPP) [Time] 30.9 s 25.1-36.5 [facility] Comment on above: A hematocrit value g reater than 55% may lead to inaccurate results in coagulation testing. Patients having hematocrit values >55% require a special collection tube for coagulation studies. Please contact the laboratory at [phone] for redraw instructions. Alanine aminotransferase [En zymatic activity/volume] in Serum or PlasmaOrdered By: Alejandra Leonard on 12-10-2023 ALT [Catalytic activity/Vol] 14 U/L Normal 7-52 [facility] Comment on above: Performed By: #### C BC, URIC, CRP, CK, ESR, TSH3, T4F, ADDONUAPLUS, CMP #### [facility] [address] [place] [address] [place] #### RPR W RFX, HBCAB, HBSAG, QUANT TB, HCV RX PCR, HBSAB, ALDOLASE #### [facility] , Albumin [Mass/volume] in Ser um or Plasma by Bromocresol green (BCG) dye binding methoOrdered By: Alejandra Leonard on 12-10-2023 Albumin BCG dye [Mass/Vol] 4.8 g/dL 3.5-5.7 [facility] Aldolaseon 12-10-2023 Aldolase 4.4 U/L Normal 3.3-10.3 [facility] Comment on above: Result Comment: Perf ormed at: CB - [facility] [address] [id number] Plant Health Care Technician: Je Rveeles PhD, Phone: [phone] PERFORMED BY: [place] [address] PATHOLOGIST CRIME ANALYST ALEXANDRA HATHAWAY M.D. Performed By: #### L UPANTCOAG #### [facility] , #### PP #### [address] Alkaline phosphatase [Enzyma tic activity/volume] in Serum or PlasmaOrdered By: Alejandra Leonard on 12-10-2023 ALP [Catalytic activity/Vol] 96 U/L Normal 34-104 [facility] Comment on above: Performed By: #### C BC, URIC, CRP, CK, ESR, TSH3, T4F, ADDONUAPLUS, CMP #### [address] #### RPR W RFX, HBCAB, HBSAG, QUANT TB, HCV RX PCR, HBSAB, ALDOLASE #### [facility] , Angiotensin Converting Enzym josé 12-10-2023 Angiotensin converting enzyme [Catalytic activity/Vol] 89 U/L High 14-82 [facility] Comment on above: Performed By: #### C BC, URIC, CRP, CK, ESR, TSH3, T4F, ADDONUAPLUS, CMP #### [address] #### RPR W RFX, HBCAB, HBSAG, QUANT TB, HCV RX PCR, HBSAB, ALDOLASE #### [facility] , Antithyroglobulin Abon 12-09 Antithyroglobulin Ab <1.0 Normal 0.0-0.9 [facility] Comment on above: Result Comment: Thyr oglobulin Antibody measured by [employer] Methodology It should be noted that the presence of thyroglobulin antibodies may not be pathogenic nor diagnostic, especially at very low levels. The assay training associate has found that four percent of individuals without evidence of thyroid disease or autoimmunity will have positive TgAb levels up to 4 IU/mL. Performed at: [address] [id number] Plant Health Care Technician: Je Reveles PhD, Phone: [phone] Performed By: #### C BC, URIC, CRP, CK, ESR, TSH3, T4F, ADDONUAPLUS, CMP #### [address] #### RPR W RFX, HBCAB, HBSAG, QUANT TB, HCV RX PCR, HBSAB, ALDOLASE #### [facility] , Aspartate aminotransferase [ Enzymatic activity/volume] in Serum or PlasmaOrdered By: Alejandra Leonard on 12-10-2023 AST [Catalytic activity/Vol] 18 U/L Normal 13-39 [facility] Comment on above: Performed By: #### C BC, URIC, CRP, CK, ESR, TSH3, T4F, ADDONUAPLUS, CMP #### [address] #### RPR W RFX, HBCAB, HBSAG, QUANT TB, HCV RX PCR, HBSAB, ALDOLASE #### [facility] , Automated basophil %Ordered By: Alejandra Leonard on 12-10-2023 Basophils/100 WBC (Bld) 0.3 % Normal . [facility] Comment on above: Performed By: #### C BC, URIC, CRP, CK, ESR, TSH3, T4F, ADDONUAPLUS, CMP #### [place] [address] [place] #### RPR W RFX, HBCAB, HBSAG, QUANT TB, HCV RX PCR, HBSAB, ALDOLASE #### [facility] , Automated basophil countOrde red By: Alejandra Leonard on 12-10-2023 Basophils (Bld) [#/Vol] 0.0 10*3/uL Normal 0.0-0.2 [facility] Comment on above: Performed By: #### C BC, URIC, CRP, CK, ESR, TSH3, T4F, ADDONUAPLUS, CMP #### [address] #### RPR W RFX, HBCAB, HBSAG, QUANT TB, HCV RX PCR, HBSAB, ALDOLASE #### [facility] , Automated blood monocyte cou ntOrdered By: Alejandra Leonard on 12-10-2023 Monocytes (Bld) [#/Vol] 0.7 10*3/uL Normal 0.0-0.8 [facility] Comment on above: Performed By: #### C BC, URIC, CRP, CK, ESR, TSH3, T4F, ADDONUAPLUS, CMP #### [place] [address] [place] #### RPR W RFX, HBCAB, HBSAG, QUANT TB, HCV RX PCR, HBSAB, ALDOLASE #### [facility] , Automated eosinophil %Ordere d By: Alejandra Leonard on 12-10-2023 Eosinophils/100 WBC (Bld) 2.4 % Normal . [facility] Comment on above: Performed By: #### C BC, URIC, CRP, CK, ESR, TSH3, T4F, ADDONUAPLUS, CMP #### [place] [address] [place] #### RPR W RFX, HBCAB, HBSAG, QUANT TB, HCV RX PCR, HBSAB, ALDOLASE #### [facility] , Automated eosinophil countOr dered By: Alejandra Leonard on 12-10-2023 Eosinophils (Bld) [#/Vol] 0.2 10*3/uL Normal 0.0-0.45 [facility] Comment on above: Performed By: #### C BC, URIC, CRP, CK, ESR, TSH3, T4F, ADDONUAPLUS, CMP #### [facility] [address] [place] [address] [place] #### RPR W RFX, HBCAB, HBSAG, QUANT TB, HCV RX PCR, HBSAB, ALDOLASE #### [facility] , Automated monocyte %Ordered By: Alejandra Leonard on 12-10-2023 Monocytes/100 WBC (Bld) 8.9 % Normal . [facility] Comment on above: Performed By: #### C BC, URIC, CRP, CK, ESR, TSH3, T4F, ADDONUAPLUS, CMP #### [facility] [address] [place] [address] [place] #### RPR W RFX, HBCAB, HBSAG, QUANT TB, HCV RX PCR, HBSAB, ALDOLASE #### [facility] , Automated neutrophil %Ordere d By: Alejandra Leonard on 12-10-2023 Neutrophils/100 WBC (Bld) 61.9 % Normal . [facility] Comment on above: Performed By: #### C BC, URIC, CRP, CK, ESR, TSH3, T4F, ADDONUAPLUS, CMP #### [place] [address] [place] #### RPR W RFX, HBCAB, HBSAG, QUANT TB, HCV RX PCR, HBSAB, ALDOLASE #### [facility] , Bacteria [Presence] in Urine sediment by Light microscopyOrdered By: Alejandra Leonard on 12-10-2023 Bacteria LM Ql (Urine sed) 1+ [HPF] None Seen [facility] Bilirubin Test strip Ql (U)O rdered By: Alejandra Leonard on 12-10-2023 Bilirubin Ql (U) 1+ Negative [facility] Bilirubin.total [Mass/volume ] in Serum or PlasmaOrdered By: Alejandra Leonard on 12-10-2023 Bilirubin [Mass/Vol] 0.5 mg/dL Normal 0.3-1.0 [facility] Comment on above: Performed By: #### C BC, URIC, CRP, CK, ESR, TSH3, T4F, ADDONUAPLUS, CMP #### [facility] [address] [place] [address] [place] #### RPR W RFX, HBCAB, HBSAG, QUANT TB, HCV RX PCR, HBSAB, ALDOLASE #### [facility] , C reactive protein [Mass/vol ume] in Serum or PlasmaOrdered By: Alejandra Leonard on 12-10-2023 CRP [Mass/Vol] 0.6 mg/dL 0.0-0.5 [facility] C-Reactive Proteinon 024 C-Reactive Protein 0.6 mg/dL High 0.0-0.5 [facility] Comment on above: Performed By: #### C BC, URIC, CRP, CK, ESR, TSH3, T4F, ADDONUAPLUS, CMP #### [facility] [address] [place] [address] [place] #### RPR W RFX, HBCAB, HBSAG, QUANT TB, HCV RX PCR, HBSAB, ALDOLASE #### [facility] , Calcium [Mass/volume] in Ser um or PlasmaOrdered By: Alejandra Leonard on 12-10-2023 Calcium [Mass/Vol] 10.1 mg/dL Normal 8.6-10.3 [facility] Comment on above: Performed By: #### C BC, URIC, CRP, CK, ESR, TSH3, T4F, ADDONUAPLUS, CMP #### [facility] [address] [place] [address] [place] #### RPR W RFX, HBCAB, HBSAG, QUANT TB, HCV RX PCR, HBSAB, ALDOLASE #### [facility] , Carbon dioxide, total [Moles /volume] in Serum or PlasmaOrdered By: Alejandra Leonard on 12-10-2023 CO2 [Moles/Vol] 32.3 mmol/L High 21.0-31.0 [facility] Comment on above: Performed By: #### C BC, URIC, CRP, CK, ESR, TSH3, T4F, ADDONUAPLUS, CMP #### [facility] [address] [place] [address] #### RPR W RFX, HBCAB, HBSAG, QUANT TB, HCV RX PCR, HBSAB, ALDOLASE #### [facility] , Chloride [Moles/volume] in S jenn or PlasmaOrdered By: Alejandra Leonard on 12-10-2023 Chloride [Moles/Vol] 101 mmol/L Normal 98-107 [facility] Comment on above: Performed By: #### C BC, URIC, CRP, CK, ESR, TSH3, T4F, ADDONUAPLUS, CMP #### [facility] [address] [place] [address] #### RPR W RFX, HBCAB, HBSAG, QUANT TB, HCV RX PCR, HBSAB, ALDOLASE #### [facility] , Chromatin Antibodyon 024 Chromatin Antibody <0.2 Normal 0.0-0.9 [facility] Comment on above: Result Comment: Perf ormed at: - [facility] [address] [id number] Plant Health Care Technician: Je Reveles PhD, Phone: [phone] PERFORMED BY: [place] [address] PATHOLOGIST CRIME ANALYST ALEXANDRA HATHAWAY M.D. Performed By: #### C BC, URIC, CRP, CK, ESR, TSH3, T4F, ADDONUAPLUS, CMP #### [address] #### RPR W RFX, HBCAB, HBSAG, QUANT TB, HCV RX PCR, HBSAB, ALDOLASE #### [facility] , Coagulation Profileon 2023 aPTT Coag (Bld) [Time] 30.9 s Normal 25.1-36.5 [facility] Comment on above: Result Comment: A he matocrit value greater than 55% may lead to inaccurate results in coagulation testing. Patients having hematocrit values >55% require a special collection tube for coagulation studies. Please contact the laboratory at [phone] for redraw instructions. PERFORMED BY: [place] [address] PATHOLOGIST CRIME ANALYST ALEXANDRA HATHAWAY M.D. Performed By: #### L UPANTCOAG #### [facility] , #### PP #### [address] Color of Urine by AutoOrdere d By: Alejandra Leonard on 12-10-2023 Color (U) Yellow Normal Yellow [facility] Comment on above: Order Comment: Name Collection Type:: Clean-Voided Midstream Performed By: #### L UPANTCOAG #### [facility] , #### PP #### [address] Complement C3on 12-10-2023 Complement C3 132 mg/dL Normal 82-167 [facility] Comment on above: Result Comment: Perf ormed at: CB - [facility] [address] [id number] Plant Health Care Technician: Je Reveles PhD, Phone: [phone] Performed By: #### C BC, URIC, CRP, CK, ESR, TSH3, T4F, ADDONUAPLUS, CMP #### [address] #### RPR W RFX, HBCAB, HBSAG, QUANT TB, HCV RX PCR, HBSAB, ALDOLASE #### [facility] , Complement C4on 12-10-2023 Complement C4 28 mg/dL Normal 12-38 [facility] Comment on above: Performed By: #### C BC, URIC, CRP, CK, ESR, TSH3, T4F, ADDONUAPLUS, CMP #### [place] [address] [place] #### RPR W RFX, HBCAB, HBSAG, QUANT TB, HCV RX PCR, HBSAB, ALDOLASE #### [facility] , Complement Total (CH50)on Complement Total (CH50) >60 Normal >41 [facility] Comment on above: Result Comment: Age Male Female 1 - 30 days Not Estab. Not Estab. 31 days - 6 months >32 >20 7 months - 17 years >39 >39 >17 years >41 >41 NOTE: The adult ( >17 years ) reference interval range is used to flag abnormals on this report. If the patient is 17 years old or younger, use the table above to determine out of range values. Performed at: - [facility] [address] [id number] Plant Health Care Technician: Je Reveles PhD, Phone: [id number] PERFORMED BY: [place] [address] PATHOLOGIST CRIME ANALYST ALEXANDRA HATHAWAY M.D. Performed By: #### L UPANTCOAG #### [facility] , #### PP #### [address] Complete Blood Count Auto Di ffon 12-10-2023 Mean Corpuscular HGB Conc 34.2 g/dL Normal 32.5-35.6 [facility] Comment on above: Performed By: #### C BC, URIC, CRP, CK, ESR, TSH3, T4F, ADDONUAPLUS, CMP #### [place] [address] [place] #### RPR W RFX, HBCAB, HBSAG, QUANT TB, HCV RX PCR, HBSAB, ALDOLASE #### [facility] , NRBC% 0.1 /100{WBC} Normal 0-0.5 [facility] Comment on above: Performed By: #### C BC, URIC, CRP, CK, ESR, TSH3, T4F, ADDONUAPLUS, CMP #### [place] [address] [place] #### RPR W RFX, HBCAB, HBSAG, QUANT TB, HCV RX PCR, HBSAB, ALDOLASE #### [facility] , Comprehensive Metabolic Pane [facility] 12-10-2023 Albumin [Mass/Vol] 4.8 g/dL Normal 3.5-5.7 [facility] Comment on above: Performed By: #### C BC, URIC, CRP, CK, ESR, TSH3, T4F, ADDONUAPLUS, CMP #### [address] #### RPR W RFX, HBCAB, HBSAG, QUANT TB, HCV RX PCR, HBSAB, ALDOLASE #### [facility] , GFR/1.73 sq M.predicted MDRD (S/P/Bld) [Vol rate/Area] mL/min/{1.73_m2} Normal [facility] Comment on above: Performed By: #### C BC, URIC, CRP, CK, ESR, TSH3, T4F, ADDONUAPLUS, CMP #### [place] [address] [place] #### RPR W RFX, HBCAB, HBSAG, QUANT TB, HCV RX PCR, HBSAB, ALDOLASE #### [facility] , Creatine kinase [Enzymatic a ctivity/volume] in Serum or PlasmaOrdered By: Alejandra Leonard on 12-10-2023 CK [Catalytic activity/Vol] 81 U/L Normal 30-223 [facility] Comment on above: Result Comment: PERF ORMED BY: [place] [address] PATHOLOGIST CRIME ANALYST ALEXANDRA HATHAWAY M.D. Performed By: #### C BC, URIC, CRP, CK, ESR, TSH3, T4F, ADDONUAPLUS, CMP #### [place] [address] [place] #### RPR W RFX, HBCAB, HBSAG, QUANT TB, HCV RX PCR, HBSAB, ALDOLASE #### [facility] , Creatinine [Mass/volume] in Serum or PlasmaOrdered By: Alejandra Leonard on 12-10-2023 Creatinine [Mass/Vol] 0.92 mg/dL Normal 0.70-1.30 [facility] Comment on above: Performed By: #### C BC, URIC, CRP, CK, ESR, TSH3, T4F, ADDONUAPLUS, CMP #### [facility] [address] [place] [address] #### RPR W RFX, HBCAB, HBSAG, QUANT TB, HCV RX PCR, HBSAB, ALDOLASE #### [facility] , Dipstick and Microscopicon 0 12-10-2023 Bacteria,Urine 1+ High None Seen [facility] Comment on above: Order Comment: Name Collection Type:: Clean-Voided Midstream Result Comment: PERF ORMED BY: [place] [address] PATHOLOGIST CRIME ANALYST ALEXANDRA HATHAWAY M.D. Performed By: #### L UPANTCOAG #### [facility] , #### PP #### [address] Bilirubin,Urine 1+ High Negative [facility] Comment on above: Order Comment: Name Collection Type:: Clean-Voided Midstream Performed By: #### L UPANTCOAG #### [facility] , #### PP #### [address] Glucose Ql (U) Normal Normal Normal [facility] Comment on above: Order Comment: Name Collection Type:: Clean-Voided Midstream Performed By: #### L UPANTCOAG #### [facility] , #### PP #### [address] Nitrite,Urine Negative Normal Negative [facility] Comment on above: Order Comment: Name Collection Type:: Clean-Voided Midstream Performed By: #### L UPANTCOAG #### [facility] , #### PP #### [address] Occult Blood,Urine Negative Normal Negative [facility] Comment on above: Order Comment: Name Collection Type:: Clean-Voided Midstream Performed By: #### L UPANTCOAG #### [facility] , #### PP #### [place] [address] [place] Protein,Urine Negative Normal Negative [facility] Comment on above: Order Comment: Name Collection Type:: Clean-Voided Midstream Performed By: #### L UPANTCOAG #### [facility] , #### PP #### [place] [address] [place] RBC LM.HPF (Urine sed) [#/Area] 0 /[HPF] Normal 0-4 [facility] Comment on above: Order Comment: Name Collection Type:: Clean-Voided Midstream Performed By: #### L UPANTCOAG #### [facility] , #### PP #### [address] Specificy [place],Urine 1.019 Normal 1.001-1.030 [facility] Comment on above: Order Comment: Name Collection Type:: Clean-Voided Midstream Performed By: #### L UPANTCOAG #### [facility] , #### PP #### [address] Squamous Epithelial Cell,Urine 1-2 Normal 0-2 [facility] Comment on above: Order Comment: Name Collection Type:: Clean-Voided Midstream Performed By: #### L UPANTCOAG #### [facility] , #### PP #### [place] [address] [place] Urobilinogen,Urine Normal Normal Normal [facility] Comment on above: Order Comment: Name Collection Type:: Clean-Voided Midstream Performed By: #### L UPANTCOAG #### [facility] , #### PP #### [address] WBC LM.HPF (Urine sed) [#/Area] 0 /[HPF] Normal 0-4 [facility] Comment on above: Order Comment: Name Collection Type:: Clean-Voided Midstream Performed By: #### L UPANTCOAG #### [facility] , #### PP #### [address] Epithelial cells.squamous [# /area] in Urine sediment by Microscopy high power fieldOrdered By: Alejandra Leonard on 12-10-2023 Epithelial cells.squamous LM.HPF (Urine sed) [#/Area] 1-2 [HPF] 0-2 [facility] Erythrocyte Sedimentation Ra timmy 12-10-2023 ESR (Bld) [Velocity] 13 mm/h Normal 0-14 [facility] Comment on above: Result Comment: PERF ORMED BY: [place] [address] PATHOLOGIST CRIME ANALYST ALEXANDRA HATHAWAY M.D. Performed By: #### C BC, URIC, CRP, CK, ESR, TSH3, T4F, ADDONUAPLUS, CMP #### [address] #### RPR W RFX, HBCAB, HBSAG, QUANT TB, HCV RX PCR, HBSAB, ALDOLASE #### [facility] , Erythrocyte distribution wid th [Ratio] by Automated countOrdered By: Alejandra Leonard on 12-10-2023 Erythrocyte distribution width (RBC) [Ratio] 13.5 % Normal 12.0-14.8 [facility] Comment on above: Performed By: #### C BC, URIC, CRP, CK, ESR, TSH3, T4F, ADDONUAPLUS, CMP #### [address] #### RPR W RFX, HBCAB, HBSAG, QUANT TB, HCV RX PCR, HBSAB, ALDOLASE #### [facility] , Erythrocyte sedimentation ra te by Photometric methodOrdered By: Alejandratherese Leonard on 12-10-2023 ESR Photometric method (Bld) [Velocity] 13 mm/hr 0-14 [facility] Erythrocytes [#/area] in Uri ne sediment by Microscopy high power fieldOrdered By: Alejandra Leonard on 12-10-2023 RBC LM.HPF (Urine sed) [#/Area] 0-1 [HPF] 0-4 [facility] Erythrocytes [#/volume] in B lood by Automated countOrdered By: Alejandra Leonard on 12-10-2023 RBC (Bld) [#/Vol] 4.92 10*6/uL Normal 3.90-5.60 [facility] Comment on above: Performed By: #### C BC, URIC, CRP, CK, ESR, TSH3, T4F, ADDONUAPLUS, CMP #### [facility] [address] [place] [address] [place] #### RPR W RFX, HBCAB, HBSAG, QUANT TB, HCV RX PCR, HBSAB, ALDOLASE #### [facility] , Glucose [Mass/volume] in Ser um or PlasmaOrdered By: Alejandra Leonard on 12-10-2023 Glucose [Mass/Vol] 83 mg/dL Normal 70-100 [facility] Comment on above: ADA recommended refe rence rangeRandom Glucose Reference Range is dependent on time and content of last meal. Glucose of more than 200 mg/dL in a nonstressed, ambulatory subject supports the diagnosis of Diabetes Mellitus. Result Comment: [place] om Glucose Reference Range is dependent on time and content of last meal. Glucose of more than 200 mg/dL in a nonstressed, ambulatory subject supports the diagnosis of Diabetes Mellitus. ADA recommended reference range Performed By: #### C BC, URIC, CRP, CK, ESR, TSH3, T4F, ADDONUAPLUS, CMP #### [facility] [address] [place] [address] [place] #### RPR W RFX, HBCAB, HBSAG, QUANT TB, HCV RX PCR, HBSAB, ALDOLASE #### [facility] , Glucose [Mass/volume] in Uri ne by Test stripOrdered By: Alejandra Leonard on 12-10-2023 Glucose Test strip (U) [Mass/Vol] Normal mg/dL Normal [facility] Hematocrit [Volume Fraction] of Blood by Automated countOrdered By: Alejandra Leonard on 12-10-2023 Hematocrit (Bld) [Volume fraction] 42.7 % Normal 38.8-50.0 [facility] Comment on above: Performed By: #### C BC, URIC, CRP, CK, ESR, TSH3, T4F, ADDONUAPLUS, CMP #### [facility] [address] [place] [address] #### RPR W RFX, HBCAB, HBSAG, QUANT TB, HCV RX PCR, HBSAB, ALDOLASE #### [facility] , Hemoglobin Test strip Ql (U) Ordered By: Alejandra Leonard on 12-10-2023 Hemoglobin Ql (U) Negative Negative [facility] Hemoglobin [Mass/volume] in BloodOrdered By: Alejandra Leonard on 12-10-2023 Hemoglobin (Bld) [Mass/Vol] 14.6 g/dL Normal 13.0-17.0 [facility] Comment on above: Performed By: #### C BC, URIC, CRP, CK, ESR, TSH3, T4F, ADDONUAPLUS, CMP #### [address] #### RPR W RFX, HBCAB, HBSAG, QUANT TB, HCV RX PCR, HBSAB, ALDOLASE #### [facility] , Hep C Ab wRfx to Qnt PCRon 0 12-10-2023 Hepatitis C Virus Antibody Non-Reactive Normal Non Reactive [facility] Comment on above: Performed By: #### L UPANTCOAG #### [facility] , #### PP #### [facility] [address] [place] [address] Interpretation Hepatitis C Normal . [facility] Comment on above: Result Comment: Not infected with HCV unless early or acute infection is suspected (which may be delayed in an immunocompromised individual), or other evidence exists to indicate HCV infection. Performed By: #### L UPANTCOAG #### [facility] , #### PP #### [address] Hepatitis B Core Antibodyon 12-10-2023 Hepatitis B Core Antibody Negative Normal Negative [facility] Comment on above: Result Comment: Perf ormed at: - [facility] [address] [id number] Plant Health Care Technician: Je Reveles PhD, Phone: [phone] Performed By: #### L UPANTCOAG #### [facility] , #### PP #### [address] Hepatitis B Surface Antibody on 12-10-2023 Hepatitis B Surface Antibody Non-Reactive Normal . [facility] Comment on above: Result Comment: Non Reactive: Inconsistent with immunity, less than 10 mIU/mL Reactive: Consistent with immunity, greater than 9.9 mIU/mL Performed By: #### L UPANTCOAG #### [facility] , #### PP #### [address] Hepatitis B Surface Antigeno n 12-10-2023 HBsAg Screen Negative Normal Negative [facility] Comment on above: Result Comment: PERF ORMED BY: [place] [address] PATHOLOGIST CRIME ANALYST ALEXANDRA HATHAWAY M.D. Performed By: #### L UPANTCOAG #### [facility] , #### PP #### [address] INR in Platelet poor plasma by Coagulation assayOrdered By: Alejandra Leonard on 12-10-2023 INR Coag (PPP) [Relative time] 0.9 {INR} Normal [facility] Comment on above: INR Therapeutic Rang e A) Pre- and Peroperative OAT started two weeks before surgery. NOT HIP SURGERY: 1.5 - 2.5 HIP SURGERY: 2 - 3B) Primary and secondary prevention of venous THROMBOSIS: 2 - 3C) Active venous thrombosis, pulmonary embolismand prevention of recurrent venous thrombosis: 2 - 3D) Prevention of arterial thromboembolismincluding patients with mechanical heart valves: 3 - 4.5 Result Comment: INR Therapeutic Range A) Pre- and Peroperative OAT started two weeks before surgery. NOT HIP SURGERY: 1.5 - 2.5 HIP SURGERY: 2 - 3 B) Primary and secondary prevention of venous THROMBOSIS: 2 - 3 C) Active venous thrombosis, pulmonary embolism and prevention of recurrent venous thrombosis: 2 - 3 D) Prevention of arterial thromboembolism including patients with mechanical heart valves: 3 - 4.5 Performed By: #### L UPANTCOAG #### [facility] , #### PP #### [address] Immunofixation, (JENNA), Urine on 12-10-2023 Immunofixation, (JENNA), Urine Normal . [facility] Comment on above: Result Comment: No m onoclonality detected. Performed at: - [facility] [address] [id number] [employer] Care Technician: Je Reveles PhD, Phone: [phone] Performed By: #### C BC, URIC, CRP, CK, ESR, TSH3, T4F, ADDONUAPLUS, CMP #### [place] [address] [place] #### RPR W RFX, HBCAB, HBSAG, QUANT TB, HCV RX PCR, HBSAB, ALDOLASE #### [facility] , Immunofixation,Serumon 12-09 Immunofixation, Serum Normal . [facility] Comment on above: Result Comment: No m onoclonality detected. Performed By: #### C BC, URIC, CRP, CK, ESR, TSH3, T4F, ADDONUAPLUS, CMP #### [place] [address] [place] #### RPR W RFX, HBCAB, HBSAG, QUANT TB, HCV RX PCR, HBSAB, ALDOLASE #### [facility] , Immunoglobulin A, Serum 182 mg/dL Normal 90-386 [facility] Comment on above: Performed By: #### C BC, URIC, CRP, CK, ESR, TSH3, T4F, ADDONUAPLUS, CMP #### [facility] [address] [place] [address] #### RPR W RFX, HBCAB, HBSAG, QUANT TB, HCV RX PCR, HBSAB, ALDOLASE #### [facility] , Immunoglobulin G 970 mg/dL Normal 603-1613 [facility] Comment on above: Performed By: #### C BC, URIC, CRP, CK, ESR, TSH3, T4F, ADDONUAPLUS, CMP #### [facility] [address] [place] [address] #### RPR W RFX, HBCAB, HBSAG, QUANT TB, HCV RX PCR, HBSAB, ALDOLASE #### [facility] , Immunoglobulin M, Serum 42 mg/dL Normal 20-172 [facility] Comment on above: Result Comment: Perf ormed at: CB - [facility] [place] [id number] [employer] Health Care Technician: Je Reveles PhD, Phone: [phone] Performed By: #### C BC, URIC, CRP, CK, ESR, TSH3, T4F, ADDONUAPLUS, CMP #### [facility] [address] [place] [address] #### RPR W RFX, HBCAB, HBSAG, QUANT TB, HCV RX PCR, HBSAB, ALDOLASE #### [facility] , Ketones [Presence] in Urine by Test stripOrdered By: Alejandra Leonard on 12-10-2023 Ketones Ql (U) Negative Normal Negative [facility] Comment on above: Order Comment: Name Collection Type:: Clean-Voided Midstream Performed By: #### L UPANTCOAG #### [facility] , #### PP #### [facility] [address] [place] [address] Leukocyte esterase [Presence ] in Urine by Test stripOrdered By: Alejnadra Leonard on 12-10-2023 Leukocyte esterase Test strip Ql (U) Negative Normal Negative [facility] Comment on above: Order Comment: Name Collection Type:: Clean-Voided Midstream Performed By: #### L UPANTCOAG #### [facility] , #### PP #### [address] Leukocytes [#/area] in Urine sediment by Microscopy high power fieldOrdered By: Alejandra Lozanorow on 12-10-2023 WBC LM.HPF (Urine sed) [#/Area] 0-1 [HPF] 0-4 [facility] Leukocytes [#/volume] correc nathanael for nucleated erythrocytes in Blood by Automated counOrdered By: Alejandra Lozanorow on 12-10-2023 WBC corrected for nucl RBC Auto (Bld) [#/Vol] 7.7 10*3/uL 4.1-10.5 [facility] Leukocytes [#/volume] in Blo od by Automated countOrdered By: Alejandra Lozanorow on 12-10-2023 WBC (Bld) [#/Vol] 7.7 10*3/uL Normal 4.1-10.5 [facility] Comment on above: Performed By: #### C BC, URIC, CRP, CK, ESR, TSH3, T4F, ADDONUAPLUS, CMP #### [facility] [address] [place] [address] #### RPR W RFX, HBCAB, HBSAG, QUANT TB, HCV RX PCR, HBSAB, ALDOLASE #### [facility] , Lupus Anticoagulant Compon 0 12-10-2023 Dilute Prothrombin Time (dPt) 30.1 Normal 0.0-47.6 [facility] Comment on above: Performed By: #### L UPANTCOAG #### [facility] , #### PP #### [address] dPT Confirm Ratio 1.15 Normal 0.00-1.34 [facility] Comment on above: Performed By: #### L UPANTCOAG #### [facility] , #### PP #### [address] DRVVT Lupus 32.6 Normal 0.0-47.0 [facility] Comment on above: Performed By: #### L UPANTCOAG #### [facility] , #### PP #### [address] Interpretation Comment: Normal . [facility] Comment on above: Result Comment: No l upus anticoagulant was detected. Performed at: [facility] [id number] [employer] Technician: Natalie Sellers MD, Phone: [phone] PERFORMED BY: [place] [address] PATHOLOGIST CRIME ANALYST ALEXANDRA HATHAWAY M.D. Performed By: #### L UPANTCOAG #### [facility] , #### PP #### [address] PTT-LA 32.0 Normal 0.0-43.5 [facility] Comment on above: Performed By: #### L UPANTCOAG #### [facility] , #### PP #### [address] Thrombin Time 16.5 Normal 0.0-23.0 [facility] Comment on above: Performed By: #### L UPANTCOAG #### [facility] , #### PP #### [address] Lymphocytes [#/volume] in Bl ood by Automated countOrdered By: Alejandra Leonard on 12-10-2023 Lymphocytes (Bld) [#/Vol] 2.0 10*3/uL Normal 1.00-4.8 [facility] Comment on above: Performed By: #### C BC, URIC, CRP, CK, ESR, TSH3, T4F, ADDONUAPLUS, CMP #### [facility] [address] [place] [address] #### RPR W RFX, HBCAB, HBSAG, QUANT TB, HCV RX PCR, HBSAB, ALDOLASE #### [facility] , Lymphocytes/100 leukocytes i n Blood by Automated countOrdered By: Alejandra Leonard on 12-10-2023 Lymphocytes/100 WBC (Bld) 26.5 % Normal . [facility] Comment on above: Performed By: #### C BC, URIC, CRP, CK, ESR, TSH3, T4F, ADDONUAPLUS, CMP #### [address] #### RPR W RFX, HBCAB, HBSAG, QUANT TB, HCV RX PCR, HBSAB, ALDOLASE #### [facility] , MCH [Entitic mass] by Automa nathanael countOrdered By: Alejandra Leonard on 12-10-2023 MCH (RBC) [Entitic mass] 29.8 pg Normal 27.5-35.2 [facility] Comment on above: Performed By: #### C BC, URIC, CRP, CK, ESR, TSH3, T4F, ADDONUAPLUS, CMP #### [facility] [address] [place] [address] [place] #### RPR W RFX, HBCAB, HBSAG, QUANT TB, HCV RX PCR, HBSAB, ALDOLASE #### [facility] , MCHC Auto (RBC) [Mass/Vol]Or dered By: Alejandra Leonard on 12-10-2023 MCHC (RBC) [Mass/Vol] 34.2 g/dL 32.5-35.6 [facility] MCV [Entitic volume] by Auto mated countOrdered By: Alejandra Leonard on 12-10-2023 MCV (RBC) [Entitic vol] 86.9 fL Normal 83.5-101 [facility] Comment on above: Performed By: #### C BC, URIC, CRP, CK, ESR, TSH3, T4F, ADDONUAPLUS, CMP #### [facility] [address] [place] [address] #### RPR W RFX, HBCAB, HBSAG, QUANT TB, HCV RX PCR, HBSAB, ALDOLASE #### [facility] , Mitochondrial (M2) Antibodyo n 12-10-2023 Mitochondrial (M2) Antibody <20.0 Normal 0.0-20.0 [facility] Comment on above: Result Comment: Nega tive 0.0 - 20.0 Equivocal 20.1 - 24.9 Positive >24.9 Mitochondrial (M2) Antibodies are found in 90-96% of patients with primary biliary cirrhosis. Performed at: [address] [id number] [employer] Technician: Je Reveles PhD, Phone: [phone] Performed By: #### C BC, URIC, CRP, CK, ESR, TSH3, T4F, ADDONUAPLUS, CMP #### [address] #### RPR W RFX, HBCAB, HBSAG, QUANT TB, HCV RX PCR, HBSAB, ALDOLASE #### [facility] , Neutrophils [#/volume] in Bl ood by Automated countOrdered By: Alejandra Leonard on 12-10-2023 Neutrophils (Bld) [#/Vol] 4.7 10*3/uL Normal 1.8-7.7 [facility] Comment on above: Performed By: #### C BC, URIC, CRP, CK, ESR, TSH3, T4F, ADDONUAPLUS, CMP #### [facility] [address] [place] [address] [place] #### RPR W RFX, HBCAB, HBSAG, QUANT TB, HCV RX PCR, HBSAB, ALDOLASE #### [facility] , Nitrite Test strip Ql (U)Ord ered By: Alejandra Leonard on 12-10-2023 Nitrite Ql (U) Negative Negative [facility] No Panel InformationOrdered By: Alejandra Leonard on 12-10-2023 Estimated GFR (CKD-EPI) > 60.0 mL/Min [facility] Creatinine Clearance (Chem N/A [facility] Nucleated erythrocytes [Pres ence] in Blood by Automated countOrdered By: Alejandra Lozanorow on 12-10-2023 Nucleated RBC Auto Ql (Bld) 0.1 /100{WBC} 0-0.5 [facility] Platelet mean volume [Entiti c volume] in Blood by Automated countOrdered By: Alejandra Lozanorow on 12-10-2023 Platelet mean volume (Bld) [Entitic vol] 7.2 fL Normal 6.6-10.1 [facility] Comment on above: Performed By: #### C BC, URIC, CRP, CK, ESR, TSH3, T4F, ADDONUAPLUS, CMP #### [facility] [address] [place] [address] #### RPR W RFX, HBCAB, HBSAG, QUANT TB, HCV RX PCR, HBSAB, ALDOLASE #### [facility] , Platelets [#/volume] in Bloo d by Automated countOrdered By: Alejandra Lozanorow on 12-10-2023 Platelets (Bld) [#/Vol] 297 10*3/uL Normal 150-450 [facility] Comment on above: Performed By: #### C BC, URIC, CRP, CK, ESR, TSH3, T4F, ADDONUAPLUS, CMP #### [facility] [address] [place] [address] [place] #### RPR W RFX, HBCAB, HBSAG, QUANT TB, HCV RX PCR, HBSAB, ALDOLASE #### [facility] , Potassium [Moles/volume] in Serum or PlasmaOrdered By: Alejandratherese Leonard on 12-10-2023 Potassium [Moles/Vol] 4.2 mmol/L Normal 3.5-5.1 [facility] Comment on above: Performed By: #### C BC, URIC, CRP, CK, ESR, TSH3, T4F, ADDONUAPLUS, CMP #### [facility] [address] [place] [address] #### RPR W RFX, HBCAB, HBSAG, QUANT TB, HCV RX PCR, HBSAB, ALDOLASE #### [facility] , Protein Electro, Random Urin josé 12-10-2023 Albumin, Urine 47.5 % Normal . [facility] Comment on above: Performed By: #### C BC, URIC, CRP, CK, ESR, TSH3, T4F, ADDONUAPLUS, CMP #### [address] #### RPR W RFX, HBCAB, HBSAG, QUANT TB, HCV RX PCR, HBSAB, ALDOLASE #### [facility] , Ahosx-4-Qbjvcwgd, Urine 3.4 % Normal . [facility] Comment on above: Performed By: #### C BC, URIC, CRP, CK, ESR, TSH3, T4F, ADDONUAPLUS, CMP #### [address] #### RPR W RFX, HBCAB, HBSAG, QUANT TB, HCV RX PCR, HBSAB, ALDOLASE #### [facility] , Quimy-2-Ningxbnn, Urine 23.0 % Normal . [facility] Comment on above: Performed By: #### C BC, URIC, CRP, CK, ESR, TSH3, T4F, ADDONUAPLUS, CMP #### [address] #### RPR W RFX, HBCAB, HBSAG, QUANT TB, HCV RX PCR, HBSAB, ALDOLASE #### [facility] , Beta Globulin, Urine 19.7 % Normal . [facility] Comment on above: Performed By: #### C BC, URIC, CRP, CK, ESR, TSH3, T4F, ADDONUAPLUS, CMP #### [address] #### RPR W RFX, HBCAB, HBSAG, QUANT TB, HCV RX PCR, HBSAB, ALDOLASE #### [facility] , Gamma Globulin, Urine 6.4 % Normal . [facility] Comment on above: Performed By: #### C BC, URIC, CRP, CK, ESR, TSH3, T4F, ADDONUAPLUS, CMP #### [place] [address] [place] #### RPR W RFX, HBCAB, HBSAG, QUANT TB, HCV RX PCR, HBSAB, ALDOLASE #### [facility] , M-Gaudencio % Not Observed Normal Not Observed [facility] Comment on above: Performed By: #### C BC, URIC, CRP, CK, ESR, TSH3, T4F, ADDONUAPLUS, CMP #### [address] #### RPR W RFX, HBCAB, HBSAG, QUANT TB, HCV RX PCR, HBSAB, ALDOLASE #### [facility] , Please Note: Normal . [facility] Comment on above: Result Comment: Prot ein electrophoresis scan will follow via computer, mail, or jig filler delivery. Performed at: - [facility] [id number] [employer] Technician: Je Reveles PhD, Phone: [phone] PERFORMED BY: [place] [address] PATHOLOGIST CRIME ANALYST ALEXANDRA HATHAWAY M.D. Performed By: #### C BC, URIC, CRP, CK, ESR, TSH3, T4F, ADDONUAPLUS, CMP #### [address] #### RPR W RFX, HBCAB, HBSAG, QUANT TB, HCV RX PCR, HBSAB, ALDOLASE #### [facility] , Protein (U) [Mass/Vol] 13.7 mg/dL Normal Not Estab. Th e [facility] Comment on above: Performed By: #### C BC, URIC, CRP, CK, ESR, TSH3, T4F, ADDONUAPLUS, CMP #### [address] #### RPR W RFX, HBCAB, HBSAG, QUANT TB, HCV RX PCR, HBSAB, ALDOLASE #### [facility] , Protein Electrophoresis, Ser umon 12-10-2023 Albumin [Mass/Vol] 4.2 g/dL Normal 2.9-4.4 [facility] Comment on above: Performed By: #### C BC, URIC, CRP, CK, ESR, TSH3, T4F, ADDONUAPLUS, CMP #### [place] [address] [place] #### RPR W RFX, HBCAB, HBSAG, QUANT TB, HCV RX PCR, HBSAB, ALDOLASE #### [facility] , Albumin/Globulin [Mass ratio] 1.4 {ratio} Normal 0.7-1.7 [facility] Comment on above: Performed By: #### C BC, URIC, CRP, CK, ESR, TSH3, T4F, ADDONUAPLUS, CMP #### [address] #### RPR W RFX, HBCAB, HBSAG, QUANT TB, HCV RX PCR, HBSAB, ALDOLASE #### [facility] , Kczqc-2-Bspvbtjo 0.3 g/dL Normal 0.0-0.4 [facility] Comment on above: Performed By: #### C BC, URIC, CRP, CK, ESR, TSH3, T4F, ADDONUAPLUS, CMP #### [place] [address] [place] #### RPR W RFX, HBCAB, HBSAG, QUANT TB, HCV RX PCR, HBSAB, ALDOLASE #### [facility] , Vtzyg-1-Cmwvttxt 0.9 g/dL Normal 0.4-1.0 [facility] Comment on above: Performed By: #### C BC, URIC, CRP, CK, ESR, TSH3, T4F, ADDONUAPLUS, CMP #### [address] #### RPR W RFX, HBCAB, HBSAG, QUANT TB, HCV RX PCR, HBSAB, ALDOLASE #### [facility] , Beta Globulin 1.0 g/dL Normal 0.7-1.3 [facility] Comment on above: Performed By: #### C BC, URIC, CRP, CK, ESR, TSH3, T4F, ADDONUAPLUS, CMP #### [address] #### RPR W RFX, HBCAB, HBSAG, QUANT TB, HCV RX PCR, HBSAB, ALDOLASE #### [facility] , Gamma Globulin 0.9 g/dL Normal 0.4-1.8 [facility] Comment on above: Performed By: #### C BC, URIC, CRP, CK, ESR, TSH3, T4F, ADDONUAPLUS, CMP #### [address] #### RPR W RFX, HBCAB, HBSAG, QUANT TB, HCV RX PCR, HBSAB, ALDOLASE #### [facility] , Globulin (S) [Mass/Vol] 3.1 g/dL Normal 2.2-3.9 [facility] Comment on above: Performed By: #### C BC, URIC, CRP, CK, ESR, TSH3, T4F, ADDONUAPLUS, CMP #### [place] [address] [place] #### RPR W RFX, HBCAB, HBSAG, QUANT TB, HCV RX PCR, HBSAB, ALDOLASE #### [facility] , M-Gaudencio Not Observed Normal Not Observed [facility] Comment on above: Performed By: #### C BC, URIC, CRP, CK, ESR, TSH3, T4F, ADDONUAPLUS, CMP #### [place] [address] [place] #### RPR W RFX, HBCAB, HBSAG, QUANT TB, HCV RX PCR, HBSAB, ALDOLASE #### [facility] , Protein [Mass/Vol] 7.3 g/dL Normal 6.0-8.5 [facility] Comment on above: Performed By: #### C BC, URIC, CRP, CK, ESR, TSH3, T4F, ADDONUAPLUS, CMP #### [address] #### RPR W RFX, HBCAB, HBSAG, QUANT TB, HCV RX PCR, HBSAB, ALDOLASE #### [facility] , SPE-Note Normal . [facility] Comment on above: Result Comment: Prot ein electrophoresis scan will follow via computer, mail, or jig filler delivery. Performed at: [address] [id number] [employer] Technician: Je Reveles PhD, Phone: [phone] PERFORMED BY: [place] [address] PATHOLOGIST CRIME ANALYST ALEXANDRA HATHAWAY M.D. Performed By: #### C BC, URIC, CRP, CK, ESR, TSH3, T4F, ADDONUAPLUS, CMP #### [address] #### RPR W RFX, HBCAB, HBSAG, QUANT TB, HCV RX PCR, HBSAB, ALDOLASE #### [facility] , Protein Test strip (U) [Mass /Vol]Ordered By: Alejandra Leonard on 12-10-2023 Protein (U) [Mass/Vol] Negative Negative [facility] Protein [Mass/volume] in Ser um or PlasmaOrdered By: Alejandra Leonard on 12-10-2023 Protein [Mass/Vol] 7.2 g/dL Normal 6.4-8.9 [facility] Comment on above: Performed By: #### C BC, URIC, CRP, CK, ESR, TSH3, T4F, ADDONUAPLUS, CMP #### [place] [address] [place] #### RPR W RFX, HBCAB, HBSAG, QUANT TB, HCV RX PCR, HBSAB, ALDOLASE #### [facility] , Prothrombin time (PT)Ordered By: Alejandra Horacio on 12-10-2023 PT Coag (PPP) [Time] 10.3 s Normal 9.0-12.9 [facility] Comment on above: A hematocrit value g reater than 55% may lead to inaccurate results in coagulation testing. Patients having hematocrit values >55% require a special collection tube for coagulation studies. Please contact the laboratory at [phone] for redraw instructions. Result Comment: A he matocrit value greater than 55% may lead to inaccurate results in coagulation testing. Patients having hematocrit values >55% require a special collection tube for coagulation studies. Please contact the laboratory at [phone] for redraw instructions. Performed By: #### L UPANTCOAG #### [facility] , #### PP #### [facility] [address] QuantiFERON TB Goldon 2023 QFTB Criteria Normal . [facility] Comment on above: Result Comment: José Luis tiFERON-TB Gold Plus is a qualitative indirect test for M tuberculosis infection (including disease) and is intended for use in conjunction with risk assessment, radiography, and other medical and diagnostic evaluations. The QuantiFERON-TB Gold Plus result is determined by subtracting the Nil value from either TB antigen (Ag) value. The Mitogen tube serves as a control for the test. Performed By: #### L UPANTCOAG #### [facility] , #### PP #### [facility] [address] Quant TB Ag Value 0.08 Normal . [facility] Comment on above: Performed By: #### L UPANTCOAG #### [facility] , #### PP #### [facility] [address] Quant TB Gold Plus Negative Normal Negative [facility] Comment on above: Result Comment: No r esponse to M tuberculosis antigens detected. Infection with M tuberculosis is unlikely, but high risk individuals should be considered for additional testing (ATS/IDSA/CDC Clinical Practice Guidelines, 2017). The reference range is an Antigen minus Nil result of <0.35 IU/mL. The specimen received for QuantiFERON testing was incubated by the ordering institution. Specific procedures outlined in our Directory of Services and in the package insert for the QuantiFERON Gold (In Tube) test must be followed to enable for proper stimulation of cells for the production of interferon gamma. Chemiluminescence immunoassay methodology Performed at: [facility] [address] [id number] [employer] Health Care Technician: Je Reveles PhD, Phone: [phone] PERFORMED BY: [place] [address] PATHOLOGIST CRIME ANALYST ALEXANDRA HATHAWAY M.D. Performed By: #### L UPANTCOAG #### [facility] , #### PP #### [address] Quant TB2 Ag Value 0.09 Normal . [facility] Comment on above: Performed By: #### L UPANTCOAG #### [facility] , #### PP #### [address] Quantiferon Nil Value 0.08 Normal . [facility] Comment on above: Performed By: #### L UPANTCOAG #### [facility] , #### PP #### [place] [address] [place] Quantiferon TB Mitogen >10.00 Normal . [facility] Comment on above: Performed By: #### L UPANTCOAG #### [facility] , #### PP #### [place] [address] [place] RPR w/rfx to Quant TP Abson 12-10-2023 RPR, Rfx Quant RPR Non-Reactive Normal Non Reactive [facility] Comment on above: Result Comment: Perf ormed at: - [facility] [id number] [place], [place] [id number] [employer] Technician: Je Reveles PhD, Phone: [phone] PERFORMED BY: [place] [address] PATHOLOGIST CRIME ANALYST ALEXANDRA HATHAWAY M.D. Performed By: #### L UPANTCOAG #### [facility] , #### PP #### [address] Serum globulin measurement b y calculation (mass/volume)Ordered By: Alejandra Leonard on 12-10-2023 Globulin (S) [Mass/Vol] 2.4 g/dL [facility] Comment on above: Performed By: #### C BC, URIC, CRP, CK, ESR, TSH3, T4F, ADDONUAPLUS, CMP #### [facility] [address] [place] [address] #### RPR W RFX, HBCAB, HBSAG, QUANT TB, HCV RX PCR, HBSAB, ALDOLASE #### [facility] , Serum or plasma albumin/glob ulin mass ratioOrdered By: Alejandra Leonard on 12-10-2023 Albumin/Globulin [Mass ratio] 2.0 {ratio} [facility] Comment on above: Performed By: #### C BC, URIC, CRP, CK, ESR, TSH3, T4F, ADDONUAPLUS, CMP #### [facility] [address] [place] [address] #### RPR W RFX, HBCAB, HBSAG, QUANT TB, HCV RX PCR, HBSAB, ALDOLASE #### [facility] , Serum or plasma anion gap de terminationOrdered By: Alejandra Leonard on 12-10-2023 Anion gap [Moles/Vol] 9.9 mmol/L Normal 6.0-15.0 [facility] Comment on above: Performed By: #### C BC, URIC, CRP, CK, ESR, TSH3, T4F, ADDONUAPLUS, CMP #### [facility] [address] [place] [address] [place] #### RPR W RFX, HBCAB, HBSAG, QUANT TB, HCV RX PCR, HBSAB, ALDOLASE #### [facility] , Smooth Muscle Antibodyon Smooth Muscle Antibody 3 Normal 0-19 [facility] Comment on above: Result Comment: Nega tive 0 - 19 Weak positive 20 - 30 Moderate to strong positive >30 Actin Antibodies are found in 52-85% of patients with autoimmune hepatitis or chronic active hepatitis and in 22% of patients with primary biliary cirrhosis. Performed By: #### C BC, URIC, CRP, CK, ESR, TSH3, T4F, ADDONUAPLUS, CMP #### [facility] [address] [place] [address] [place] #### RPR W RFX, HBCAB, HBSAG, QUANT TB, HCV RX PCR, HBSAB, ALDOLASE #### [facility] , Sodium [Moles/volume] in Ser um or PlasmaOrdered By: Alejandra Leonard on 12-10-2023 Sodium [Moles/Vol] 139 mmol/L Normal 136-145 [facility] Comment on above: Performed By: #### C BC, URIC, CRP, CK, ESR, TSH3, T4F, ADDONUAPLUS, CMP #### [facility] [address] [place] [address] [place] #### RPR W RFX, HBCAB, HBSAG, QUANT TB, HCV RX PCR, HBSAB, ALDOLASE #### [facility] , Specific gravity Test strip (U) [Rel density]Ordered By: Alejandra Leonard on 12-10-2023 Specific gravity (U) [Rel density] 1.019 1.001-1.030 [facility] Thyroid Peroxidase Antibodie son 12-10-2023 Thyroid Peroxidase Antibodies <9 Normal 0-34 [facility] Comment on above: Result Comment: Perf ormed at: - [facility] [address] [id number] [employer] Technician: Je Reveles PhD, Phone: [phone] Performed By: #### C BC, URIC, CRP, CK, ESR, TSH3, T4F, ADDONUAPLUS, CMP #### [address] #### RPR W RFX, HBCAB, HBSAG, QUANT TB, HCV RX PCR, HBSAB, ALDOLASE #### [facility] , Thyrotropin [Units/volume] i n Serum or PlasmaOrdered By: Alejandra Leonard on 12-10-2023 TSH Qn 3.05 m[IU]/L Normal 0.45-5.33 [facility] Comment on above: Result Comment: PERF ORMED BY: [place] [address] PATHOLOGIST CRIME ANALYST ALEXANDRA HATHAWAY M.D. Performed By: #### C BC, URIC, CRP, CK, ESR, TSH3, T4F, ADDONUAPLUS, CMP #### [address] #### RPR W RFX, HBCAB, HBSAG, QUANT TB, HCV RX PCR, HBSAB, ALDOLASE #### [facility] , Thyroxine (T4) free [Mass/vo lume] in Serum or PlasmaOrdered By: Alejandra Leonard on 12-10-2023 Free T4 [Mass/Vol] 0.84 ng/dL Normal 0.61-1.12 [facility] Comment on above: Performed By: #### C BC, URIC, CRP, CK, ESR, TSH3, T4F, ADDONUAPLUS, CMP #### [address] #### RPR W RFX, HBCAB, HBSAG, QUANT TB, HCV RX PCR, HBSAB, ALDOLASE #### [facility] , Urate [Mass/volume] in Serum or PlasmaOrdered By: Alejandra Leonard on 12-10-2023 Urate [Mass/Vol] 4.3 mg/dL Low 4.4-7.6 [facility] Comment on above: Performed By: #### C BC, URIC, CRP, CK, ESR, TSH3, T4F, ADDONUAPLUS, CMP #### [facility] [address] [place] [address] #### RPR W RFX, HBCAB, HBSAG, QUANT TB, HCV RX PCR, HBSAB, ALDOLASE #### [facility] , Urea nitrogen [Mass/volume] in Serum or PlasmaOrdered By: Alejandra Leonard on 12-10-2023 Urea nitrogen [Mass/Vol] 14 mg/dL Normal 7-25 [facility] Comment on above: Performed By: #### C BC, URIC, CRP, CK, ESR, TSH3, T4F, ADDONUAPLUS, CMP #### [facility] [address] [place] [address] #### RPR W RFX, HBCAB, HBSAG, QUANT TB, HCV RX PCR, HBSAB, ALDOLASE #### [facility] , Urine appearanceOrdered By: Alejandra Lozanorow on 12-10-2023 Appearance (U) Clear Normal Clear [facility] Comment on above: Order Comment: Name Collection Type:: Clean-Voided Midstream Performed By: #### L UPANTCOAG #### [facility] , #### PP #### [address] Urobilinogen Test strip (U) [Mass/Vol]Ordered By: Alejandra Leonard on 12-10-2023 Urobilinogen (U) [Mass/Vol] Normal mg/dL Normal [facility] pH of Urine by Test stripOrd ered By: Alejandra Horacio on 12-10-2023 pH (U) 6.0 [pH] Normal 5.0-9.0 [facility] Comment on above: Order Comment: Name Collection Type:: Clean-Voided Midstream Performed By: #### L UPANTCOAG #### [facility] , #### PP #### [address] MR KNEE LEFT WO IV CONTRASTo n 11-02-2023 MR KNEE LEFT WO IV CONTRAST Exam: MR KNEE LEFT WO IV CONTRAST History: Knee pain Technique: Multiplanar multisequence MRI of the knee was performed without contrast. Comparison: None available Findings: Quadriceps and patellar tendons are intact. No joint effusion. Anterior and posterior cruciate ligaments are intact. The medial collateral ligament, lateral collateral ligament, and popliteus are intact. The medial and lateral meniscus are intact. No well-defined or measurable cartilage defect. Popliteal fossa structures are intact. Thin Rodriguez's cyst measures approximately 5 cm in craniocaudal length. IMPRESSION: Ligaments and menisci are intact. ELECTRONICALLY SIGNED BY: Khanh Jennings, DO Normal Not Available CBC AUTO DIFFon 04-05-2022 BASO # 0.0 103/ul Normal 0.0-0.1 [facility] Comment on above: Performed By: #### C BC #### [facility] [address] [address] [address] Sherry Pal Basophils/100 WBC (Bld) 0.5 % Normal 0.2-2.0 [facility] Comment on above: Performed By: #### C BC #### [facility] [address] [address] [address] Sherry Pal EO # 0.2 103/ul Normal 0.0-0.7 [facility] Comment on above: Performed By: #### C BC #### [facility] [address] [address] [address] Sherry Pal Eosinophils/100 WBC (Bld) 4.0 % Normal 0.9-7.0 [facility] Comment on above: Performed By: #### C BC #### [facility] [address] [address] [address] Sherry Pal Erythrocyte distribution width (RBC) [Ratio] 13.2 % Normal 11.0-15.0 [facility] Comment on above: Performed By: #### C BC #### [facility] [address] [place] [address] Dr. Sherry Pla Hematocrit (Bld) [Volume fraction] 41.1 % Critically low 42.0-54.0 [facility] Comment on above: Performed By: #### C BC #### [facility] [address] [place] [address] Dr. Sherry Pal Hemoglobin (Bld) [Mass/Vol] 14.2 g/dL Normal 14.0-18.0 [facility] Comment on above: Performed By: #### C BC #### [facility] [address] [place] [address] Dr. Sherry Pal IG # 0.03 10e3/ul Normal 0.00-0.03 [facility] Comment on above: Performed By: #### C BC #### [facility] [address] [place] [address] Dr. Sherry Pal IG % 0.5 % Normal 0.0-0.5 [facility] Comment on above: Performed By: #### C BC #### [facility] [address] [place] [address] Dr. Sherry Pal LYMPH # 1.4 103/ul Normal 1.2-3.8 [facility] Comment on above: Performed By: #### C BC #### [facility] [address] [place] [address] Dr. Sherry Pal Lymphocytes/100 WBC (Bld) 23.8 % Normal 20.5-60.0 [facility] Comment on above: Performed By: #### C BC #### [facility] [address] [place] [address] Dr. Sherry Pal MANUAL DIFF REQ NO Normal [facility] Comment on above: Performed By: #### C BC #### [facility] [address] [place] [address] Dr. Sherry Pal MCH (RBC) [Entitic mass] 30.4 pg Normal 25.9-34.0 [facility] Comment on above: Performed By: #### C BC #### [facility] [address] [place] [address] Dr. Sherry Pal MCHC (RBC) [Mass/Vol] 34.5 g/dL Normal 29.9-35.2 [facility] Comment on above: Performed By: #### C BC #### [facility] [address] [address] [address] Sherry Pal MCV (RBC) [Entitic vol] 88.0 fL Normal 80.0-94.0 [facility] Comment on above: Performed By: #### C BC #### [facility] [address] [address] [address] Sherry Pal MONO # 0.8 103/ul Normal 0.3-0.8 [facility] Comment on above: Performed By: #### C BC #### [facility] [address] [address] [address] Sherry Pal Monocytes/100 WBC (Bld) 12.4 % Critically high 1.7-12.0 [facility] Comment on above: Performed By: #### C BC #### [facility] [address] [place] [address] Dr. Sherry Pal NEUT # 3.6 103/ul Normal 1.4-6.5 [facility] Comment on above: Performed By: #### C BC #### [facility] [address] [place] [address] Dr. Sherry Pal Neutrophils/100 WBC (Bld) 58.8 % Normal 43.0-75.0 [facility] Comment on above: Performed By: #### C BC #### [facility] [address] [place] [address] Dr. Sherry Pal Platelet mean volume (Bld) [Entitic vol] 9.7 fL Normal 9.5-13.5 [facility] Comment on above: Performed By: #### C BC #### [facility] [address] [place] [address] Dr. Sherry Pal PLT 351 103/ul Normal 150-450 [facility] Comment on above: Performed By: #### C BC #### [facility] [address] [place] [address] Dr. Sherry Pal RBC 4.67 106/ul Critically low 4.70-6.10 [facility] Comment on above: Performed By: #### C BC #### [facility] [address] [place] [address] Dr. Sherry Pal WBC 6.0 103/ul Normal 4.0-11.0 [facility] Comment on above: Performed By: #### C BC #### [facility] [address] [place] [address] Dr. Sherry Pal [facility] SARS-CoV-2 (COVID-19) RNA NINA+probe Ql (Unsp spec) Not detected Normal NOT DETECTED [facility] Comment on above: Result Comment: When diagnostic testing is negative, the possibility of a false negative should be considered in the context of a patient's recent exposures and the presence of clinical signs and symptoms consistent with SARS-CoV-2. This test is not yet approved or cleared by the [place] FDA. When there are no FDA-approved or cleared tests available, and other criteria are met, FDA can make tests available under an emergency access mechanism called an Emergency Use Authorization (EUA). The EUA for this test is supported by the Academic Affairs Vice President of Health and Human Service's declaration that circumstances exist to justify the emergency use of in vitro diagnostics for the detection and/or diagnosis of the virus that causes COVID-19. This EUA will remain in effect for the duration of the COVID-19 declaration justifying emergency of IVDs, unless it is terminated or revoked by the FDA (after which the test may no longer be used). Performed By: #### C VDTB #### [facility] [address] [place] [address] Dr. Sherry Pal PROF 14(COMP METB)on 022 Albumin [Mass/Vol] 3.9 g/dL Normal 3.4-5.0 [facility] Comment on above: Performed By: #### C MP #### [facility] [address] [place] [address] Dr. Sherry Pal Albumin/Globulin [Mass ratio] 1.3 {ratio} Normal [facility] Comment on above: Performed By: #### C MP #### [facility] [address] [place] [address] Dr. Sherry Pal ALP [Catalytic activity/Vol] 124 U/L Critically high 46-116 [facility] Comment on above: Performed By: #### C MP #### [facility] [address] [address] [address] Sherry Pal ALT [Catalytic activity/Vol] 20 U/L Normal 16-63 [facility] Comment on above: Performed By: #### C MP #### [facility] [address] [address] [address] Sherry Pal Anion gap [Moles/Vol] 8.9 mmol/L Normal [facility] Comment on above: Performed By: #### C MP #### [facility] [address] [address] [address] Sherry Pal AST [Catalytic activity/Vol] 18 U/L Normal 15-37 [facility] Comment on above: Performed By: #### C MP #### [facility] [address] [place] [address] Dr. Sherry Pal Bilirubin [Mass/Vol] 0.2 mg/dL Normal 0.2-1.0 [facility] Comment on above: Performed By: #### C MP #### [facility] [address] [address] [address] Sherry Pal Calcium [Mass/Vol] 9.0 mg/dL Normal 8.5-10.1 [facility] Comment on above: Performed By: #### C MP #### [facility] [address] [address] [address] Sherry Pal Chloride [Moles/Vol] 105 mmol/L Normal 98-107 [facility] Comment on above: Performed By: #### C MP #### [facility] [address] [address] [address] Sherry Pal CO2 [Moles/Vol] 29.5 mmol/L Normal 21.0-32.0 [facility] Comment on above: Performed By: #### C MP #### [facility] [address] [address] [address] Sherry Pal Creatinine [Mass/Vol] 0.87 mg/dL Normal 0.70-1.30 [facility] Comment on above: Performed By: #### C MP #### [facility] [address] [address] [address] Sherry Pal EGFR-AF LATVIAN >60 Normal >=60 [facility] Comment on above: Performed By: #### C MP #### [facility] [address] [address] [address] Sherry Pal EGFR-NON AF LATVIAN >60 Normal >=60 [facility] Comment on above: Performed By: #### C MP #### [facility] [address] [address] [address] Sherry Pal Globulin (S) [Mass/Vol] 2.9 g/dL Normal [facility] Comment on above: Performed By: #### C MP #### [facility] [address] [place] [address] Dr. Sherry Pal Glucose [Mass/Vol] 83 mg/dL Normal 74-106 [facility] Comment on above: Performed By: #### C MP #### [facility] [address] [address] [address] Sherry Pal Potassium [Moles/Vol] 4.4 mmol/L Normal 3.5-5.1 [facility] Comment on above: Performed By: #### C MP #### [facility] [address] [place] [address] Dr. Sherry Pal Protein [Mass/Vol] 6.8 g/dL Normal 6.4-8.2 [facility] [facility] Comment on above: Performed By: #### C MP #### [facility] [address] [address] [address] Sherry Pal Sodium [Moles/Vol] 139 mmol/L Normal 136-145 [facility] Comment on above: Performed By: #### C MP #### [facility] [address] [place] [address] Dr. Sherry Pal Urea nitrogen [Mass/Vol] 6.0 mg/dL Critically low 7.0-18.0 [facility] Comment on above: Performed By: #### C MP #### [facility] [address] [address] [address] Sherry Pal Urea nitrogen/Creatinine [Mass ratio] 6.9 mg/mg Normal [facility] Comment on above: Performed By: #### C MP #### [facility] [address] [place] [address] Dr. Sherry Pal CBC AUTO DIFFon 10-02-2021 BASO # 0.0 103/ul Normal 0.0-0.1 [facility] Comment on above: Performed By: #### C BC #### [facility] [address] [place] [address] Dr. Sherry Pal Basophils/100 WBC (Bld) 0.4 % Normal 0.2-2.0 [facility] Comment on above: Performed By: #### C BC #### [facility] [address] [place] [address] Dr. Sherry Pal EO # 0.2 103/ul Normal 0.0-0.7 [facility] Comment on above: Performed By: #### C BC #### [facility] [address] [place] [address] Dr. Sherry Pal Eosinophils/100 WBC (Bld) 3.2 % Normal 0.9-7.0 [facility] Comment on above: Performed By: #### C BC #### [facility] [address] [place] [address] Dr. Sherry Pal Erythrocyte distribution width (RBC) [Ratio] 12.9 % Normal 11.0-15.0 [facility] Comment on above: Performed By: #### C BC #### [facility] [address] [place] [address] Dr. Sherry Pal Hematocrit (Bld) [Volume fraction] 38.8 % Critically low 42.0-54.0 [facility] Comment on above: Performed By: #### C BC #### [facility] [address] [place] [address] Dr. Sherry Pal Hemoglobin (Bld) [Mass/Vol] 13.0 g/dL Critically low 14.0-18.0 [facility] Comment on above: Performed By: #### C BC #### [facility] [address] [place] [address] Dr. Sherry Pal IG # 0.01 10e3/ul Normal 0.00-0.03 [facility] Comment on above: Performed By: #### C BC #### [facility] [address] [place] [address] Dr. Sherry Pal IG % 0.2 % Normal 0.0-0.5 [facility] Comment on above: Performed By: #### C BC #### [facility] [address] [place] [address] Dr. Sherry Pal LYMPH # 0.8 103/ul Critically low 1.2-3.8 [facility] Comment on above: Performed By: #### C BC #### [facility] [address] [place] [address] Dr. Sherry Pal Lymphocytes/100 WBC (Bld) 16.8 % Critically low 20.5-60.0 [facility] Comment on above: Performed By: #### C BC #### [facility] [address] [place] [address] Dr. Sherry Pal MANUAL DIFF REQ NO Normal [facility] Comment on above: Performed By: #### C BC #### [facility] [address] [place] [address] Dr. Sherry Pal MCH (RBC) [Entitic mass] 29.4 pg Normal 25.9-34.0 [facility] Comment on above: Performed By: #### C BC #### [facility] [address] [place] [address] Dr. Sherry Pal MCHC (RBC) [Mass/Vol] 33.5 g/dL Normal 29.9-35.2 [facility] Comment on above: Performed By: #### C BC #### [facility] [address] [place] [address] Dr. Sherry Pal MCV (RBC) [Entitic vol] 87.8 fL Normal 80.0-94.0 [facility] Comment on above: Performed By: #### C BC #### [facility] [address] [place] [address] Dr. Sherry Pal MONO # 0.6 103/ul Normal 0.3-0.8 [facility] Comment on above: Performed By: #### C BC #### [facility] [address] [place] [address] Dr. Sherry Pal Monocytes/100 WBC (Bld) 13.8 % Critically high 1.7-12.0 [facility] Comment on above: Performed By: #### C BC #### [facility] [address] [place] [address] Dr. Sherry Pal NEUT # 3.0 103/ul Normal 1.4-6.5 [facility] Comment on above: Performed By: #### C BC #### [facility] [address] [place] [address] Dr. Sherry Pal Neutrophils/100 WBC (Bld) 65.6 % Normal 43.0-75.0 [facility] Comment on above: Performed By: #### C BC #### [facility] [address] [place] [address] Dr. Sherry Pal Platelet mean volume (Bld) [Entitic vol] 8.6 fL Critically low 9.5-13.5 [facility] Comment on above: Performed By: #### C BC #### [facility] [address] [place] [address] Dr. Sherry Pal PLT 230 103/ul Normal 150-450 [facility] Comment on above: Performed By: #### C BC #### [facility] [address] [place] [address] Dr. Sherry Pal RBC 4.42 106/ul Critically low 4.70-6.10 [facility] Comment on above: Performed By: #### C BC #### [facility] [address] [place] [address] Dr. Sherry Pal WBC 4.6 103/ul Normal 4.0-11.0 [facility] Comment on above: Performed By: #### C BC #### [facility] [address] [place] [address] Dr. Sherry Pal LIPASEon 10-02-2021 Lipase [Catalytic activity/Vol] 113.0 U/L Normal 23.0-300.0 [facility] Comment on above: Performed By: #### C MP, LIPA #### [facility] [address] [place] [address] Dr. Sherry Pal PROF 14(COMP METB)on 022 Albumin [Mass/Vol] 3.7 g/dL Normal 3.4-5.0 [facility] Comment on above: Performed By: #### C MP, LIPA #### [facility] [address] [place] [address] Dr. Sherry Pal Albumin/Globulin [Mass ratio] 1.4 {ratio} Normal [facility] Comment on above: Performed By: #### C MP, LIPA #### [facility] [address] [place] [address] Dr. Sherry Pal ALP [Catalytic activity/Vol] 83 U/L Normal 46-116 [facility] Comment on above: Performed By: #### C MP, LIPA #### [facility] [address] [place] [address] Dr. Sherry Pal ALT [Catalytic activity/Vol] 16 U/L Normal 16-63 [facility] Comment on above: Performed By: #### C MP, LIPA #### [facility] [address] [place] [address] Dr. Sherry Pal Anion gap [Moles/Vol] 12.3 mmol/L Normal [facility] Comment on above: Performed By: #### C MP, LIPA #### [facility] [address] [place] [address] Dr. Sherry Pal AST [Catalytic activity/Vol] 14 U/L Critically low 15-37 [facility] Comment on above: Performed By: #### C MP, LIPA #### [facility] [address] [place] [address] Dr. Sherry Pal Bilirubin [Mass/Vol] 0.4 mg/dL Normal 0.2-1.3 [facility] Comment on above: Performed By: #### C MP, LIPA #### [facility] [address] [place] [address] Dr. Sherry Pal Calcium [Mass/Vol] 8.3 mg/dL Critically low 8.5-10.1 [facility] Comment on above: Performed By: #### C MP, LIPA #### [facility] [address] [place] [address] Dr. Sherry Pal Chloride [Moles/Vol] 102 mmol/L Normal 98-107 [facility] Comment on above: Performed By: #### C MP, LIPA #### [facility] [address] [place] [address] Dr. Sherry Pal CO2 [Moles/Vol] 27.4 mmol/L Normal 22.0-30.0 [facility] Comment on above: Performed By: #### C MP, LIPA #### [facility] [address] [place] [address] Dr. Sherry Pal Creatinine [Mass/Vol] 0.94 mg/dL Normal 0.66-1.25 [facility] Comment on above: Performed By: #### C MP, LIPA #### [facility] [address] [place] [address] Dr. Sherry Pal EGFR-AF LATVIAN >60 Normal >=60 [facility] Comment on above: Performed By: #### C MP, LIPA #### [facility] [address] [place] [address] Dr. Sherry Pal EGFR-NON AF LATVIAN >60 Normal >=60 [facility] Comment on above: Performed By: #### C MP, LIPA #### [facility] [address] [place] [address] Dr. Sherry Pal Globulin (S) [Mass/Vol] 2.6 g/dL Normal [facility] Comment on above: Performed By: #### C MP, LIPA #### [facility] [address] [place] [address] Dr. Sherry Pal Glucose [Mass/Vol] 91 mg/dL Normal 74-106 [facility] Comment on above: Performed By: #### C MP, LIPA #### [facility] [address] [place] [address] Dr. Sherry Pal Potassium [Moles/Vol] 3.7 mmol/L Normal 3.4-5.0 [facility] Comment on above: Performed By: #### C MP, LIPA #### [facility] [address] [address] [address] Sherry Pal Protein [Mass/Vol] 6.3 g/dL Normal 6.1-8.2 [facility] Comment on above: Performed By: #### C MP, LIPA #### [facility] [address] [address] [address] Sherry Pal Sodium [Moles/Vol] 138 mmol/L Normal 137-145 [facility] Comment on above: Performed By: #### C MP, LIPA #### [facility] [address] [place] [address] Dr. Sherry Pal Urea nitrogen [Mass/Vol] 7.0 mg/dL Normal 7.0-18.0 [facility] Comment on above: Performed By: #### C TERE, LIPA #### [facility] [address] [place] [address] Dr. Sheryr Pal Urea nitrogen/Creatinine [Mass ratio] 7.4 mg/mg Normal [facility] Comment on above: Performed By: #### C MP, LIPA #### [facility] [address] [place] [address] Dr. Sherry Pal XR ABD FLAT UP_PA Tony 10-02 XR ABD FLAT UP_PA CH EXAM: XR ABD FLAT U P_PA CH HISTORY: NAUSEA WITH VOMITING, UNSPECIFIED COMPARISON: Acute abdomen series dated 12/28/2014. TECHNIQUE: One view of the chest and 2 views of the abdomen were obtained. FINDINGS: The cardiac silhouette is normal in size. The lungs are clear. There is no significant pneumothorax or pleural effusion. There is a nonspecific bowel gas pattern without evidence of bowel obstruction. No intraperitoneal free air is seen. No acute osseous abnormality is seen. IMPRESSION: 1. No acute cardiopulmonary abnormality. 2. Nonspecific bowel gas pattern without evidence of bowel obstruction. Electronically authenticated by: Rosy MONTANEZ Date: 2021-10-02 05:25 Normal [facility] Vital Signs Date Time Vital Sign Value Performing Clinician Faci lity 02-09-2024 14:08-0400 Body height 172.7 cm Alejandra Mann DO Work Phone: [facility] 02-09-2024 14:08-0400 Body mass index (BMI) [Ratio] 24.48 kg/m2 Alejandra Petznick DO Work Phone: [facility] 02-09-2024 14:08-0400 Body temperature 98.8 [degF] Alejandra Petznick DO Work Phone: [facility] 02-09-2024 14:08-0400 Body weight 73.03 kg Alejandra Petznick DO Work Phone: [facility] 02-09-2024 14:08-0400 Diastolic blood pressure 70 mm[Hg] Alejandra Petznick DO Work Phone: [facility] 02-09-2024 14:08-0400 Heart rate 124 /min Alejandra Kingick DO Work Phone: [facility] 02-09-2024 14:08-0400 SaO2% (BldA) [Mass fraction] 99 % Alejandra Petadrienneick DO Work Phone: [facility] 02-09-2024 14:08-0400 Systolic blood pressure 114 mm[Hg] Alejandra Petznick DO Work Phone: [facility] Healthcare Encounters Encounter Date Encounter Type Care Provider Facility Start: 08-01-2024 End: 08-01-2024 Patient encounter procedure Aurelia Piñaanthony DO Work Phone: [facility] Work Phone: Start: 08-01-2024 End: 08-01-2024 ambulatory Aurelia Piñaanthony DO Work Phone: [facility] Work Phone: Start: 02-09-2024 End: 02-09-2024 ambulatory ALEJANDRA MANN Not Available Start: 02-09-2024 End: 02-09-2024 Office outpatient visit 25 minutes Alejandra Mann DO Work Phone: [facility] [address] Comment on above: Chronic pain of left knee (Primary Dx); Patellofemoral disorder of left knee; Rheumatoid arthritis involving multiple sites with positive rheumatoid factor ([facility]) Start: 12-10-2023 End: 12-10-2023 Patient encounter procedure DO Aurelia Streeter Work Phone: [facility] [address] Work Phone: Start: 12-10-2023 End: 12-10-2023 ambulatory DO Aurelia Streeter Work Phone: [facility] Work Phone: Start: 11-25-2023 End: 11-25-2023 ambulatory ALEJANDRA Brandy PETZNICK Not Available Start: 11-23-2023 End: 11-23-2023 ambulatory ALEJANDRA C PETZNICK Not Available Start: 11-02-2023 End: 11-02-2023 ambulatory ALEJANDRA C PETZNICK Not Available Start: 09-25-2023 End: 09-25-2023 Evaluation and management of inpatient [facility] Start: 09-24-2023 End: 09-25-2023 Evaluation and management of inpatient LEELA [facility] Start: 04-05-2022 End: 04-05-2022 ambulatory [facility] Facility: Start: 10-02-2021 End: 10-02-[address] JUDE CHANG Facility: Start: 01-15-2018 End: 01-16-2018 Patient encounter DEFAULT PHYSICIAN Facility:[facility] Plan of Treatment Date Care Activity Detail Author Start: 08-01-2024 Plain chest X-ray XR chest 2V* [facility] Start: 08-01-2024 XR Chest 2 Views [facility] Start: 08-01-2024 Aldolase measurement [facility] Start: 02-21-2024 Influenza vaccination Influenza Vaccine (#1) [facility] Start: 12-10-2023 Hemolytic complement CH50 level [facility] Start: 12-10-2023 Hepatitis B core antibody measurement [facility] Start: 12-10-2023 [facility] 24 [facility] Act[facility] smooth muscle IgG Ab [Units/volume] in Serum [facility] Albumin [Mass/volume ] in Serum or Plasma [facility] Albumin/Globulin ratio [facility] Aldolase measurement [facility] Angiotensin converti ng enzyme [Enzymatic activity/volume] in Serum or Plasma [facility] Angiotensin converti ng enzyme [Enzymatic activity/volume] in Serum or Plasma [facility] Chromatin Ab [Units/ volume] in Serum or Plasma [facility] Complement C3 [Mass/ volume] in Serum or Plasma [facility] Complement C4 [Mass/ volume] in Serum or Plasma [facility] Electrophoresis: [id number] [facility] Electrophoresis: [id number] [facility] Electrophoresis: beta-globulin [facility] Electrophoresis: kris ma globulin [facility] Globulin [Mass/volum e] in Serum [facility] Hepatitis B virus benavidez rface Ab [Presence] in Serum [facility] Hepatitis B virus benavidez rface Ag [Presence] in Serum or Plasma by Immunoassay [facility] Hepatitis C virus Ig G Ab [Presence] in Serum or Plasma by Immunoassay [facility] Homogenous nuclear A b pattern [Titer] in Serum [facility] IgA [Mass/volume] in Serum or Plasma [facility] IgG [Mass/volume] in Serum or Plasma [facility] IgM [Mass/volume] in Serum or Plasma [facility] Immunofixation for Urine [facility] Interferon gamma assay [facility] Lupus anticoagulant [Interpretation] in Platelet poor plasma [facility] Measurement of monoc lonal protein concentration [facility] Mitochondria M2 IgG Ab [Units/volume] in Serum [facility] Mycobacterium tuberc ulosis stimulated gamma interferon [Interpretation] in Blood Qualitative [facility] Mycobacterium tuberc ulosis stimulated gamma interferon release by CD4+ and CD8+ T-cells [Units/volume] corrected for background in Blood [facility] Mycobacterium tuberc ulosis tuberculin stimulated gamma interferon [Presence] in Blood [facility] Myoglobin [Mass/volu me] in Serum or Plasma [facility] Nuclear Ab [Titer] in Serum [facility] Protein [Mass/volume ] in Serum or Plasma [facility] Protein [Mass/volume ] in Urine [facility] Reagin Ab [Presence] in Serum by RPR [facility] Serum immunofixation [facility] Thrombin time [facility] Thyroglobulin Ab [Units/volume] in Serum or Plasma [facility] Thyroperoxidase Ab [Units/volume] in Serum or Plasma [facility] Payers Date Payer Category Payer Medicaid MEDICAID [facility] [place] [id number] 2024-Present [phone] [address] [place] [address] Medicaid [id number] 2023 Self-pay [id number] 2023 Private Health Insurance [facility] [id number] 2023-Present [address] [address] [place] [address] [id number] 2023 Unknown [id number] 1990 Unknown [id number] [id number]. 2.593 1990 Unknown [id number] 2.16.840.1.319499.3.579. 2.593 1990 Unknown [id number] 2.16.840.1.529897.3.579. 2.1286 1990 Unknown [id number] 2.16.840.1.423744.3.579. 2.1286 1990 Unknown [id number] 2.16.840.1.700004.3.579. 2.1286 1990 Unknown [id number] 2.16.840.1.647667.3.579. 2.1286 1990 Unknown [id number] 2.16.840.1.205636.3.579. 2.1259 1990 Unknown [id number] 2.16.840.1.348741.3.579. 2.1259 1990 Unknown [id number] 2.16.840.1.148058.3.579. 2.1259 1990 Unknown [id number] 2.16.840.1.771444.3.579. 2.1259 1959 Unknown [id number] 1959 Unknown [id number] Medicaid [place] Advantage [id number] Unknown Unknown [id number] [id number]. 2.531 Unknown [id number] [id number]. 2.531 Unknown [id number] [id number]. 2.531 Worker's Compensation Compmanagmnt [facility] s-[employer] [id number] Social History Date Type Detail Facility [facility] if ever smoked [facility] Work Phone: Start: 1990 Sex Assigned At Male [facility] Start: 02-09-2024 [facility] daily [facility] History of tobacco use Cigarette Smoker [facility] History of tobacco use Cigar Smoker [facility] Start: 02-09-2024 Tobacco use and exposure Smokeless tobacco non-user [facility] Start: 02-09-2024 Alcoholic beverage intake Ex-drinker (finding) [facility] Start: 02-09-2024 History of Social function [facility] Start: 02-09-2024 Tobacco use panel [facility] Start: 11-02-2023 Alcohol Comment Monthly or less [facility] Start: 1990 Sex assigned at Not on file [facility] Tobacco smoking stat [facility] Unknown if ever smoked [facility] Work Phone: Start: 08-02-2024 End: 08-02-2024 Sex Male (finding) [facility] History of Present illness Narrative 02-09-2024 Alejandra Mann, DO - 02/09/2024 2:00 PM EDT Note Date & Type Note Facility 02-09-2024 History of Presen t illness Narrative Images from the original note were not included. Hugo Sam is a 33 y.o. male presents with chief complaint of Chief Complaint Patient presents with Knee Pain History of Present Illness The patient is here for a follow-up evaluation of his left knee pain. His last visit was in 11/2023. Despite an essentially normal MRI of his knee, he has consulted multiple orthopedic surgeons and tried various medications. He continues to take etodolac, a medication I prescribed, and nabumetone twice daily as recommended by Dr. Leonard. He is scheduled to see Dr. Leonard again on 03/30/2024. He is currently under the care of a metal flow coordinator due to a past positive rheumatoid factor. The metal flow coordinator is experimenting with different medications for his knees and joints. He is on disability as per the metal flow coordinator's advice. He had taken time off work but requested to return early when he felt better. However, on the morning he was supposed to return, he experienced a shift in his knee, causing difficulty in walking and standing. He has a cyst on the back of his left knee, which he believes is causing inflammation. He is considering the possibility of surgery on his knee and is curious about the potential benefits of a knee scope. He has been diagnosed with a lung disease that can affect muscles and joints, and it is suspected to be the cause of his current symptoms. He has been advised to get a chest x-ray and additional blood work done. He quit his job 2 weeks ago due to these health issues. States he was supposed to go back to work on 02.01.24 but he did not go back because his left knee was really weak and bothering him. Dr Leonard told him he could have some kind of lung disease that he cannot remember, is going to get a cxr done and blood work done to confirm this. He thinks this is related to his knee pain. States he quit his job due to not being able to go back to work due to his knee pain. He has a cyst on the back of his knee that Dr Leonard told him it felt fine but he does not think it feels fine. He is wanting a note that he is being treated for his knee so he can give it to the office for food stamps. Dr Leonard would not do this for him. SUBJECTIVE: CURRENT MEDICATIONS: ALLERGIES/DISCONTINUE MEDICATIONS Current Outpatient Medications: lamoTRIgine (LaMICtal) 25 MG tablet, Take by mouth Daily, Disp: , Rfl: nabumetone (Relafen) 750 MG tablet, Take 750 mg by mouth in the morning and 750 mg before bedtime., Disp: , Rfl: omeprazole (PriLOSEC) [address] capsule, TAKE 1 CAPSULE BY MOUTH EVERY DAY 30 MINUTES BEFORE morning meal, Disp: , Rfl: paliperidone (Invega) 6 MG 24 hr tablet, Take 6 mg by mouth Daily, Disp: , Rfl: sertraline (Zoloft) 100 MG tablet, Take 150 mg by mouth Daily, Disp: , Rfl: No Known Allergies Medications Discontinued During This Encounter Medication Reason etodolac (Lodine) 500 MG tablet Therapy completed nicotine (Nicoderm, Step 2) 14 MG/24HR patch Therapy completed omeprazole (PriLOSEC) [address] capsule Therapy completed PAST MEDICAL HISTORY: SURGICAL/SOCIAL/FAMILY HISTORY DEPRESSION SCREEN: Past Medical History: Diagnosis Date ADHD (attention deficit hyperactivity disorder) ([facility]) Anxiety RA (rheumatoid arthritis) ([facility]) History reviewed. No pertinent surgical history. Depression: Not at risk (02/09/2024) PHQ-2 PHQ-2 Score: 0 Social History Tobacco Use Smoking status: Every Day Current packs/day: 0.50 Types: Cigarettes, Cigars Smokeless tobacco: Never Vaping Use Vaping status: Never Used Substance Use Topics Alcohol use: Not Currently Comment: Monthly or less Family History Problem Relation Name Age of Onset Hypertension Father REVIEW OF SYMPTOMS: Review of Systems Constitutional: Negative for fatigue and fever. Musculoskeletal: Positive for arthralgias, gait problem and joint swelling. Skin: Negative for rash. Neurological: Positive for weakness. Negative for numbness. Psychiatric/Behavioral: Negative. All other systems reviewed and are negative. Hematological: Does not bruise/bleed easily. OBJECTIVE: 02/09/2024 2:08 PM 11/25/2023 3:08 PM 11/02/2023 9:58 AM Vitals BMI 24.48 kg/m2 24.33 kg/m2 22.37 kg/m2 BSA (m2) 1.87 m2 1.87 m2 1.84 m2 Systolic 114 120 132 Diastolic 70 76 68 Heart Rate 124 76 80 SpO2 99 % 99 % 98 % Temp 98.8 F 98.6 F 97.6 F Height (in) 5' 8 5' 8 5' 9.3 Weight (lb) 161 160 152.8 Visit Report Report Report Report GENERAL EXAM: Physical Exam Vitals and nursing note reviewed. Constitutional: General: He is not in acute distress. Appearance: Normal appearance. He is not ill-appearing. HENT: Head: Normocephalic and atraumatic. Nose: Nose normal. Eyes: General: No scleral icterus. Right eye: No discharge. Left eye: No discharge. Extraocular Movements: Extraocular movements intact. Musculoskeletal: Cervical back: Neck supple. Skin: General: Skin is warm and dry. Neurological: General: No focal deficit present. Mental Status: He is alert and oriented to person, place, and time. Mental status is at baseline. Psychiatric: Mood and Affect: Mood normal. Behavior: Behavior normal. Thought Content: Thought content normal. Judgment: Judgment normal. Physical Exam Examination of the left knee reveals full range of motion, normal gait, and neurovascular integrity. Collateral ligaments, ACL, PCL are intact. There is some pain to palpation in the posterior knee with very minimal swelling. ASSESSMENT AND PLAN: 1. Chronic pain of left knee The MRI of the knee was essentially normal, and he has seen multiple orthopedic surgeons. He is currently seeing a metal flow coordinator and is on disability due to knee pain. He was previously prescribed etodolac and is now taking nabumetone twice a day. A cyst on the back of the left knee was noted, which could be due to inflammation. A note was written confirming that he has been off work due to knee pain. He will continue to follow up with rheumatology. A referral will be made to an orthopedic surgeon for further evaluation and treatment. If the current treatment does not improve symptoms, a knee scope may be considered to further investigate the issue. I spent a total of 30 minutes or more a date of the service which included preparing to see the patient, [id number] patient care including obtaining/reviewing history and performing appropriate medical examination, completing clinical documentation and coordination of care. - Ambulatory referral to Orthopaedic Surgery; Future 2. Patellofemoral disorder of left knee 3. Rheumatoid arthritis involving multiple sites with positive rheumatoid factor (CMS/HCC) Continue to follow up with Dr Horacio MANN D.O. This note was entered using [employer]. Grammatical and dictation errors maybe present in translation I have reviewed and reconciled the history and medication list with the patient today. documented in this encounter [facility] Clinical Note 09-21-2023 Note Date & Type Note Facility 09-21-2023 Note Scheduled EGD/GERD @1045, [facility], Dr. Carrillo, #[id number]. Referral in media 09/16/[address] Arreola. [facility] Evaluation note Note Date & Type Note Facility Evaluation note [facility] Evaluation note Note Date & Type Note Facility Evaluation note Diagnosis Chronic pain of left knee- Primary Patellofemoral disorder of left knee Rheumatoid arthritis involving multiple sites with positive rheumatoid factor (CMS/HCC) documented in this encounter [facility] Reason for referral (narrative) Consultation (Routine) - Pending Review Note Date & Type Note Facility Reason for referral (narrati ve) Specialty Diagnoses / Procedures Referred By Wood roy Referred To Contact Orthopaedic Surgery Diagnoses Chronic pain of left knee Alejandra Mann DO [address] [address] Referral ID Status Reason Start Date Expiration Date Visits Requested Visits Authorized [id number] Pending Review Specialty Services Required 02/09/2024 08/07/2024 1 1 [facility] Summary Purpose Family History No Family History Records FoundNo Family History Records FoundNo Family History Records FoundNo Family History Records FoundNo Family History Records FoundNo Family History Records Found Advance Directives No Advanced Directives Records Found Advance Directive Response Recorded Date/ Time Advance Directives No December 09 10:20am Advance Directive Response Recorded Date/ Time Advance Directives No December 09 9:20am Chief Complaint and Reason for Visit Chief Complaint Admit Date R76.0/OA/MEDS August 01, 2024 2:37pm sarcoidosis August 01, 2024 3:12pm Additional Source Comments (unrecognized sect ion and content) No Status Records FoundNo Status Records FoundNo Status Records FoundNo Status Records FoundNo Status Records FoundNo Status Records Found INFORMATION SOURCE (unrecogn ized section and content) DATE CREATED AUTHOR 01/16/[address] [facility] DATE CREATED AUTHOR AUTHOR'S ORGANIZ ATION 04/13/2022 [facility] DATE CREATED AUTHOR AUTHOR'S ORGANIZ ATION 09/22/2023 [facility] DATE CREATED AUTHOR AUTHOR'S ORGANIZ ATION 09/25/2023 [facility] DATE CREATED AUTHOR AUTHOR'S ORGANIZ ATION 02/11/2024 [facility] DATE CREATED AUTHOR AUTHOR'S ORGANIZ ATION 08/07/2024 [facility] Care Teams (unrecognized sec tion and content) Team Status: Active Member Role Status Dates Aurelia Streeter DO Primary Care Provider Active Team Status: Inactive Member Role Status Dates Aurelia Streeter DO Primary Care Provider Active Start: December 10, 2023 End: December 10, 2023 Alejandra Leonard MD Attending Provider Active St art: December 10, 2023 End: December 10, 2023 Boiler/Chiller Technician Relationship Specialty Start Date End Date Marshal Streeter DO [address] [facility] [address] [place] [address] PCP - General Family Medicine 02/09/24 Team Status: Active Member Role Status Dates JOSIANE BrownleeC Primary Care Provider Active Team Status: Inactive Member Role Status Dates Aurelia Streeter DO Primary Care Provider Active Start: August 01, 2024 End: August 01, 2024 Alejandra Leonard MD Attending Provider Active St art: August 01, 2024 End: August 01, 2024 Team Status: Inactive Member Role Status Dates ALEXANDR Brownlee Primary Care Provider Active Start: August 01, 2024 End: August 01, 2024 Alejandra Leonard MD Attending Provider Active St art: August 01, 2024 End: August 01, 2024 Goals (unrecognized section and content) Goals may be documented in a n alternate sectionGoals may be documented in an alternate sectionGoals may be documented in an alternate section Reason for Visit (unrecogniz ed section and content) Reason Comments Knee Pain FOR RECORDS PERTAINING TO PATIENTS WHO ARE OR HAVE BEEN ENROLLED IN A CHEMICAL DEPENDENCY/SUBSTANCEABUSE PROGRAM, SOME INFORMATION MAY BE OMITTED. This clinical summary was aggregated from multiple sources. Caution should be exercised in using it in the provision of clinical care. This summary normalizes information from multiple sources, and as a consequence, information in this document may materially change the coding, format and clinical context of patient data. In addition, data may be omitted in some cases. CLINICAL DECISIONS SHOULD BE BASED ON THE PRIMARY CLINICAL RECORDS. [employer] [facility]. provides no warranty or guarantee of the accuracy or completeness of information in this document.
== END 2024-08-17 06:48 | disposition home or self-care (01) ==
LOC: MRI 06:48
PROVIDERS: Family Provider Family Medicine; Visit Provider Family Medicine
DX: R53.83 Other fatigue (principal); H53.2 Diplopia; G43.909 Migraine, unspecified, not intractable, without status migrainosus
CPT/HCPCS: 70553; A9575

== ENCOUNTER 2024-08-19 14:06 | Outpatient (OUT) | payer OTHER, SELFPAY ==
--- NOTE | 2024-08-19 14:11 | XR_ITS ---
The [address] [address] Patient Name: ADORE ZEPEDA MRN: [id number] date: 1990 Sex: M Assigned Patient Location: RAD Current Patient Location: [facility] Accession/Order Number: [id number] Exam Date: 08/19/2024 16:36 Report Date: 08/19/2024 16:37 At the request of: DEBORAH FRAGOSO MD Procedure: XR cervical spine 2-3V XR cervical spine 2-3V 08/19/2024 2:20 PM SIGNS AND SYMPTOMS: Chronic neck pain PROTOCOLS: Frontal, lateral, and atlantoaxial views of the cervical spine COMPARISON: None FINDINGS: The bones are in anatomic alignment. There is preservation of the vertebral body heights and intervertebral disc spaces. There is no fracture or destructive lesion. The atlantoaxial joint is preserved. The prevertebral soft tissues are within normal limits. XR/XR cervical spine 2-3V IMPRESSION: Negative cervical spine. Impression dictated by: Tony Bejarano M.D.08/19/2024 4:37 PM Dictation Location: [place] [address] Electronically authenticated by: [id number] Y Date: 08/19/2024 16:37
--- OUTSIDE RECORDS SUMMARY | 2024-08-19 14:14 | XMS_ITS | CCD ---
Author Organization [facility] Care Team Providers Care Radiotelegraph Operator Name Role Phone PHYSICIAN, DEFAULT Unavailable Unavailable PHYSICIAN, DEFAULT Unavailable Unavailable [facility] Unava ilable IDALIA, DR ERASTO Acuna Consulting Unavailable FRIEDMAN, DR ERASTO Acuna Admitting Unavailable IDALIA, DR ERASTO Acuna Attending Unavailable MARKER, DR ROQUE Admitting Unavailable MARKER, DR ROQUE Attending Unavailable [facility] Unava ilable MARKER, DR ROQUE Consulting Unavailable MONTANEZ, BRYAN Consulting Unavailable ALASTAL, YASEEN S Admitting Unavailable ALASTAL, YASEEN S Attending Unavailable RUMSCHLAG, MARY K Primary Care Unavailable GLENDA ANDERSON Attending Unavailable RUMSCHLAG, MARY K Primary Care Unavailable ALASTAL, YASEEN S Attending Unavailable ALASTAL, YASEEN S Referring Unavailable RUMSCHLAG, MARY K Primary Care Unavailable DO Aurelia Streeter Primary Care Provider [phone] MD Alejandra Leonard Attending Provider ALEJANDRA MANN Attending Unavailable ALEJANDRA MANN Referring Unavailable ALEJANDRA MANN Attending Unavailable ALEJANDRA MANN Attending Unavailable ALEJANDRA MANN Referring Unavailable Marshal Streeter DO Primary Care Provider Aurelia Streeter DO Primary Care Provider Alejandra Leonard MD Attending Provider Mari JOSHUACShanda Primary Care Provider Alejandra Leonard Admitting Unavailable Alejandra Leonard Attending [...] XR chest 2V*on 08-02-2024 XR chest 2V* [facility] [place] [address] [place] [address] XRay Report Signed Patient: Hugo Sam V MR#: [id number] : 1990 Acct:[id number] Age/Sex: 34 / M ADM Date: 08/01/24 Loc: XD Room: Type: [facility] Attending Dr: Alejandra Leonard MD Copies to: [...] Frederick Galindo M.D.08/02/2024 8:43 AM Dictation Location: [place] [address] Transcribed By: [facility] 08/02/24 0843 Dictated By: Frederick Galindo DO 08/02/2442 Signed By: 08/02/2443 Normal [facility] Aldolaseon 08-01-2024 Aldolase 3.6 U/L Normal 3.3-10.3 [facility] Comment on above: Result Comment: Perf ormed at: [facility] [address] [id number] Care Associate: Je Reveles PhD, Phone: [phone] PERFORMED BY: [place] [address] PATHOLOGIST WHEY DEPARTMENT OPERATOR AME RAHMAN M.D. Performed By: #### C BC, URIC, CRP, CK, ESR, TSH3, T4F, ADDONUAPLUS, CMP #### [address] #### RPR W RFX, HBCAB, HBSAG, QUANT TB, HCV RX PCR, HBSAB, ALDOLASE #### [facility] , Angiotensin Converting Enzym josé 08-01-2024 Angiotensin converting enzyme [Catalytic activity/Vol] 57 U/L Normal 14-82 [facility] Comment on above: Result Comment: Perf ormed at: [facility] [address] [id number] Care Associate: Je Reveles PhD, Phone: [phone] Performed By: #### C BC, URIC, CRP, CK, ESR, TSH3, T4F, ADDONUAPLUS, CMP #### [facility] [address] [place] [address] [place] #### RPR W RFX, HBCAB, HBSAG, QUANT TB, HCV RX PCR, HBSAB, ALDOLASE #### [facility] , C reactive protein [Mass/vol ume] in Serum or PlasmaOrdered By: Alejandra Leonard on 08-01-2024 CRP [Mass/Vol] C reactive protein [Mass/volume] in Serum or Plasma 0.0-0.5 [facility] C-Reactive Proteinon CRP [Mass/Vol] mg/L Normal 0.0-0.5 [facility] Comment on above: Performed By: #### C BC, URIC, CRP, CK, ESR, TSH3, T4F, ADDONUAPLUS, CMP #### [address] #### RPR W RFX, HBCAB, HBSAG, QUANT TB, HCV RX PCR, HBSAB, ALDOLASE #### [facility] , Erythrocyte Sedimentation Ra timmy 08-01-2024 ESR (Bld) [Velocity] 4 mm/h Normal 0-14 [facility] Comment on above: Result Comment: PERF ORMED BY: [place] [address] PATHOLOGIST WHEY DEPARTMENT OPERATOR AME RAHMAN M.D. Performed By: #### C BC, URIC, CRP, CK, ESR, TSH3, T4F, ADDONUAPLUS, CMP #### [address] #### RPR W RFX, HBCAB, HBSAG, QUANT TB, HCV RX PCR, HBSAB, ALDOLASE #### [facility] , Erythrocyte sedimentation ra te by Photometric methodOrdered By: Alejandra Leonard on 08-01-2024 ESR Photometric method (Bld) [Velocity] Erythrocyte sedimentation rate by Photometric method 0-14 [facility] Free T4 (Free Thyroxine)on 0 08-01-2024 Free T4 [Mass/Vol] 0.87 ng/dL Normal 0.61-1.12 [facility] Comment on above: Performed By: #### C BC, URIC, CRP, CK, ESR, TSH3, T4F, ADDONUAPLUS, CMP #### [facility] [address] [place] [address] [place] #### RPR W RFX, HBCAB, HBSAG, QUANT TB, HCV RX PCR, HBSAB, ALDOLASE #### [facility] , Myoglobinon 08-01-2024 Myoglobin [Mass/Vol] ng/mL Low 28-72 [facility] Comment on above: Result Comment: Perf ormed at: - [facility] [address] [id number] Care Associate: Je Reveles PhD, Phone: [phone] PERFORMED BY: [place] [address] PATHOLOGIST WHEY DEPARTMENT OPERATOR AME RAHMAN M.D. Performed By: #### C BC, URIC, CRP, CK, ESR, TSH3, T4F, ADDONUAPLUS, CMP #### [address] #### RPR W RFX, HBCAB, HBSAG, QUANT TB, HCV RX PCR, HBSAB, ALDOLASE #### [facility] , Thyroid Stimulating Hormoneo n 08-01-2024 TSH Qn 3.57 m[IU]/L Normal 0.45-5.33 [facility] Comment on above: Result Comment: PERF ORMED BY: [place] [address] PATHOLOGIST WHEY DEPARTMENT OPERATOR AME RAHMAN M.D. Performed By: #### C BC, URIC, CRP, CK, ESR, TSH3, T4F, ADDONUAPLUS, CMP #### [address] #### RPR W RFX, HBCAB, HBSAG, QUANT TB, HCV RX PCR, HBSAB, ALDOLASE #### [facility] , Thyrotropin [Units/volume] i n Serum or PlasmaOrdered By: Alejandra Leonard on 08-01-2024 TSH Qn Thyrotropin [Units/v olume] in Serum or Plasma 0.45-5.33 [facility] Thyroxine (T4) free [Mass/vo lume] in Serum or PlasmaOrdered By: Alejandra Leonard on 08-01-2024 Free T4 [Mass/Vol] Thyroxine (T4) free [Mass/volume] in Serum or Plasma 0.61-1.12 [facility] EFRAIN Antinuclear Antibodieson 12-10-2023 Antinuclear Abs, IFA Negative Normal . [facility] Comment on above: Result Comment: Nega tive <1:80 Borderline 1:80 Positive >1:80 ICAP nomenclature: AC-0 For more information about Hep-2 cell patterns use ANApatterns.org, the official website for the International Consensus on Antinuclear Antibody (EFRAIN) Patterns (ICAP). Performed at: - [facility] [address] [id number] Care Associate: Je Reveles PhD, Phone: [phone] Performed By: #### C BC, URIC, CRP, CK, ESR, TSH3, T4F, ADDONUAPLUS, CMP #### [facility] [address] [place] [address] #### RPR W RFX, HBCAB, HBSAG, QUANT TB, HCV RX PCR, HBSAB, ALDOLASE #### [facility] , Activated partial thrombopla stin time (aPTT) in platelet poor plasma by coagulation aOrdered By: Alejandra Leonard on 12-10-2023 aPTT Coag (PPP) [Time] 30.9 s 25.1-36.5 [facility] Comment on above: A hematocrit value g reater than 55% may lead to inaccurate results in coagulation testing. Patients having hematocrit values >55% require a special collection tube for coagulation studies. Please contact the laboratory at [phone] for redraw instructions. Alanine aminotransferase [En zymatic activity/volume] in Serum or PlasmaOrdered By: Alejandra Leonard on 12-10-2023 ALT [Catalytic activity/Vol] 14 U/L Normal 7-52 [facility] Comment on above: Performed By: #### C BC, URIC, CRP, CK, ESR, TSH3, T4F, ADDONUAPLUS, CMP #### [facility] [address] [place] [address] [place] #### RPR W RFX, HBCAB, HBSAG, QUANT TB, HCV RX PCR, HBSAB, ALDOLASE #### [facility] , Albumin [Mass/volume] in Ser um or Plasma by Bromocresol green (BCG) dye binding methoOrdered By: Alejandra Leonard on 12-10-2023 Albumin BCG dye [Mass/Vol] 4.8 g/dL 3.5-5.7 [facility] Aldolaseon 12-10-2023 Aldolase 4.4 U/L Normal 3.3-10.3 [facility] Comment on above: Result Comment: Perf ormed at: CB - [facility] [address] [id number] Care Associate: Je Reveles PhD, Phone: [phone] PERFORMED BY: [place] [address] PATHOLOGIST WHEY DEPARTMENT OPERATOR ALEXANDRA HATHAWAY M.D. Performed By: #### L UPANTCOAG #### [facility] , #### PP #### [address] Alkaline phosphatase [Enzyma tic activity/volume] in Serum or PlasmaOrdered By: Alejandra Leonard on 12-10-2023 ALP [Catalytic activity/Vol] 96 U/L Normal 34-104 [facility] Comment on above: Performed By: #### C BC, URIC, CRP, CK, ESR, TSH3, T4F, ADDONUAPLUS, CMP #### [address] #### RPR W RFX, HBCAB, HBSAG, QUANT TB, HCV RX PCR, HBSAB, ALDOLASE #### [facility] , Angiotensin Converting Enzym josé 12-10-2023 Angiotensin converting enzyme [Catalytic activity/Vol] 89 U/L High 14-82 [facility] Comment on above: Performed By: #### C BC, URIC, CRP, CK, ESR, TSH3, T4F, ADDONUAPLUS, CMP #### [address] #### RPR W RFX, HBCAB, HBSAG, QUANT TB, HCV RX PCR, HBSAB, ALDOLASE #### [facility] , Antithyroglobulin Abon 12-09 Antithyroglobulin Ab <1.0 Normal 0.0-0.9 [facility] Comment on above: Result Comment: Thyr oglobulin Antibody measured by [employer] Method[employer] It should be noted that the presence of thyroglobulin antibodies may not be pathogenic nor diagnostic, especially at very low levels. The assay freelance web designer has found that four percent of individuals without evidence of thyroid disease or autoimmunity will have positive TgAb levels up to 4 IU/mL. Performed at: [address] [id number] Care Associate: Je Reveles PhD, Phone: [phone] Performed By: #### C BC, URIC, CRP, CK, ESR, TSH3, T4F, ADDONUAPLUS, CMP #### [address] #### RPR W RFX, HBCAB, HBSAG, QUANT TB, HCV RX PCR, HBSAB, ALDOLASE #### [facility] , Aspartate aminotransferase [ Enzymatic activity/volume] in Serum or PlasmaOrdered By: Alejandra Leonard on 12-10-2023 AST [Catalytic activity/Vol] 18 U/L Normal 13-39 [facility] Comment on above: Performed By: #### C BC, URIC, CRP, CK, ESR, TSH3, T4F, ADDONUAPLUS, CMP #### [address] #### RPR W RFX, HBCAB, HBSAG, QUANT TB, HCV RX PCR, HBSAB, ALDOLASE #### [facility] , Automated basophil %Ordered By: Alejandra Leonard on 12-10-2023 Basophils/100 WBC (Bld) 0.3 % Normal . [facility] Comment on above: Performed By: #### C BC, URIC, CRP, CK, ESR, TSH3, T4F, ADDONUAPLUS, CMP #### [place] [address] [place] #### RPR W RFX, HBCAB, HBSAG, QUANT TB, HCV RX PCR, HBSAB, ALDOLASE #### [facility] , Automated basophil countOrde red By: Alejandra Leonard on 12-10-2023 Basophils (Bld) [#/Vol] 0.0 10*3/uL Normal 0.0-0.2 [facility] Comment on above: Performed By: #### C BC, URIC, CRP, CK, ESR, TSH3, T4F, ADDONUAPLUS, CMP #### [address] #### RPR W RFX, HBCAB, HBSAG, QUANT TB, HCV RX PCR, HBSAB, ALDOLASE #### [facility] , Automated blood monocyte cou ntOrdered By: Alejandra Leonard on 12-10-2023 Monocytes (Bld) [#/Vol] 0.7 10*3/uL Normal 0.0-0.8 [facility] Comment on above: Performed By: #### C BC, URIC, CRP, CK, ESR, TSH3, T4F, ADDONUAPLUS, CMP #### [place] [address] [place] #### RPR W RFX, HBCAB, HBSAG, QUANT TB, HCV RX PCR, HBSAB, ALDOLASE #### [facility] , Automated eosinophil %Ordere d By: Alejandra Leonard on 12-10-2023 Eosinophils/100 WBC (Bld) 2.4 % Normal . [facility] Comment on above: Performed By: #### C BC, URIC, CRP, CK, ESR, TSH3, T4F, ADDONUAPLUS, CMP #### [place] [address] [place] #### RPR W RFX, HBCAB, HBSAG, QUANT TB, HCV RX PCR, HBSAB, ALDOLASE #### [facility] , Automated eosinophil countOr dered By: Alejandra Leonard on 12-10-2023 Eosinophils (Bld) [#/Vol] 0.2 10*3/uL Normal 0.0-0.45 [facility] Comment on above: Performed By: #### C BC, URIC, CRP, CK, ESR, TSH3, T4F, ADDONUAPLUS, CMP #### [facility] [address] [place] [address] [place] #### RPR W RFX, HBCAB, HBSAG, QUANT TB, HCV RX PCR, HBSAB, ALDOLASE #### [facility] , Automated monocyte %Ordered By: Alejandra Leonard on 12-10-2023 Monocytes/100 WBC (Bld) 8.9 % Normal . [facility] Comment on above: Performed By: #### C BC, URIC, CRP, CK, ESR, TSH3, T4F, ADDONUAPLUS, CMP #### [facility] [address] [place] [address] [place] #### RPR W RFX, HBCAB, HBSAG, QUANT TB, HCV RX PCR, HBSAB, ALDOLASE #### [facility] , Automated neutrophil %Ordere d By: Alejandra Leonard on 12-10-2023 Neutrophils/100 WBC (Bld) 61.9 % Normal . [facility] Comment on above: Performed By: #### C BC, URIC, CRP, CK, ESR, TSH3, T4F, ADDONUAPLUS, CMP #### [place] [address] [place] #### RPR W RFX, HBCAB, HBSAG, QUANT TB, HCV RX PCR, HBSAB, ALDOLASE #### [facility] , Bacteria [Presence] in Urine sediment by Light microscopyOrdered By: Alejandra Leonard on 12-10-2023 Bacteria LM Ql (Urine sed) 1+ [HPF] None Seen [facility] Bilirubin Test strip Ql (U)O rdered By: Alejandra Leonard on 12-10-2023 Bilirubin Ql (U) 1+ Negative [facility] Bilirubin.total [Mass/volume ] in Serum or PlasmaOrdered By: Alejandra Leonard on 12-10-2023 Bilirubin [Mass/Vol] 0.5 mg/dL Normal 0.3-1.0 [facility] Comment on above: Performed By: #### C BC, URIC, CRP, CK, ESR, TSH3, T4F, ADDONUAPLUS, CMP #### [facility] [address] [place] [address] [place] #### RPR W RFX, HBCAB, HBSAG, QUANT TB, HCV RX PCR, HBSAB, ALDOLASE #### [facility] , C reactive protein [Mass/vol ume] in Serum or PlasmaOrdered By: Alejandra Leonard on 12-10-2023 CRP [Mass/Vol] 0.6 mg/dL 0.0-0.5 [facility] C-Reactive Proteinon 024 C-Reactive Protein 0.6 mg/dL High 0.0-0.5 [facility] Comment on above: Performed By: #### C BC, URIC, CRP, CK, ESR, TSH3, T4F, ADDONUAPLUS, CMP #### [facility] [address] [place] [address] [place] #### RPR W RFX, HBCAB, HBSAG, QUANT TB, HCV RX PCR, HBSAB, ALDOLASE #### [facility] , Calcium [Mass/volume] in Ser um or PlasmaOrdered By: Alejandra Leonard on 12-10-2023 Calcium [Mass/Vol] 10.1 mg/dL Normal 8.6-10.3 [facility] Comment on above: Performed By: #### C BC, URIC, CRP, CK, ESR, TSH3, T4F, ADDONUAPLUS, CMP #### [facility] [address] [place] [address] [place] #### RPR W RFX, HBCAB, HBSAG, QUANT TB, HCV RX PCR, HBSAB, ALDOLASE #### [facility] , Carbon dioxide, total [Moles /volume] in Serum or PlasmaOrdered By: Alejandra Leonard on 12-10-2023 CO2 [Moles/Vol] 32.3 mmol/L High 21.0-31.0 [facility] Comment on above: Performed By: #### C BC, URIC, CRP, CK, ESR, TSH3, T4F, ADDONUAPLUS, CMP #### [facility] [address] [place] [address] #### RPR W RFX, HBCAB, HBSAG, QUANT TB, HCV RX PCR, HBSAB, ALDOLASE #### [facility] , Chloride [Moles/volume] in S jenn or PlasmaOrdered By: Alejandra Leonard on 12-10-2023 Chloride [Moles/Vol] 101 mmol/L Normal 98-107 [facility] Comment on above: Performed By: #### C BC, URIC, CRP, CK, ESR, TSH3, T4F, ADDONUAPLUS, CMP #### [facility] [address] [place] [address] #### RPR W RFX, HBCAB, HBSAG, QUANT TB, HCV RX PCR, HBSAB, ALDOLASE #### [facility] , Chromatin Antibodyon 024 Chromatin Antibody <0.2 Normal 0.0-0.9 [facility] Comment on above: Result Comment: Perf ormed at: - [facility] [address] [id number] Care Associate: Je Reveles PhD, Phone: [phone] PERFORMED BY: [place] [address] PATHOLOGIST WHEY DEPARTMENT OPERATOR ALEXANDRA HATHAWAY M.D. Performed By: #### C BC, URIC, CRP, CK, ESR, TSH3, T4F, ADDONUAPLUS, CMP #### [address] #### RPR W RFX, HBCAB, HBSAG, QUANT TB, HCV RX PCR, HBSAB, ALDOLASE #### [facility] , Coagulation Profileon 2023 aPTT Coag (Bld) [Time] 30.9 s Normal 25.1-36.5 [facility] Comment on above: Result Comment: A he matocrit value greater than 55% may lead to inaccurate results in coagulation testing. Patients having hematocrit values >55% require a special collection tube for coagulation studies. Please contact the laboratory at [phone] for redraw instructions. PERFORMED BY: [place] [address] PATHOLOGIST WHEY DEPARTMENT OPERATOR ALEXANDRA HATHAWAY M.D. Performed By: #### L UPANTCOAG #### [facility] , #### PP #### [address] Color of Urine by AutoOrdere d By: Alejandra Leonard on 12-10-2023 Color (U) Yellow Normal Yellow [facility] Comment on above: Order Comment: Name Collection Type:: Clean-Voided Midstream Performed By: #### L UPANTCOAG #### [facility] , #### PP #### [address] Complement C3on 12-10-2023 Complement C3 132 mg/dL Normal 82-167 [facility] Comment on above: Result Comment: Perf ormed at: CB - [facility] [address] [id number] Care Associate: Je Reveles PhD, Phone: [phone] Performed By: #### C BC, URIC, CRP, CK, ESR, TSH3, T4F, ADDONUAPLUS, CMP #### [address] #### RPR W RFX, HBCAB, HBSAG, QUANT TB, HCV RX PCR, HBSAB, ALDOLASE #### [facility] , Complement C4on 12-10-2023 Complement C4 28 mg/dL Normal 12-38 [facility] Comment on above: Performed By: #### C BC, URIC, CRP, CK, ESR, TSH3, T4F, ADDONUAPLUS, CMP #### [place] [address] [place] #### RPR W RFX, HBCAB, HBSAG, QUANT TB, HCV RX PCR, HBSAB, ALDOLASE #### [facility] , Complement Total (CH50)on Complement Total (CH50) >60 Normal >41 [facility] Comment on above: Result Comment: [...] of range values. Performed at: - [facility] [address] [id number] Care Associate: Je Reveles PhD, Phone: [phone] PERFORMED BY: [place] [address] PATHOLOGIST WHEY DEPARTMENT OPERATOR ALEXANDRA HATHAWAY M.D. Performed By: #### L UPANTCOAG #### [facility] , #### PP #### [address] Complete Blood Count Auto Di ffon 12-10-2023 Mean Corpuscular HGB Conc 34.2 g/dL Normal 32.5-35.6 [facility] Comment on above: Performed By: #### C BC, URIC, CRP, CK, ESR, TSH3, T4F, ADDONUAPLUS, CMP #### [place] [address] [place] #### RPR W RFX, HBCAB, HBSAG, QUANT TB, HCV RX PCR, HBSAB, ALDOLASE #### [facility] , NRBC% 0.1 /100{WBC} Normal 0-0.5 [facility] Comment on above: Performed By: #### C BC, URIC, CRP, CK, ESR, TSH3, T4F, ADDONUAPLUS, CMP #### [place] [address] [place] #### RPR W RFX, HBCAB, HBSAG, QUANT TB, HCV RX PCR, HBSAB, ALDOLASE #### [facility] , Comprehensive Metabolic Pane [facility] 12-10-2023 Albumin [Mass/Vol] 4.8 g/dL Normal 3.5-5.7 [facility] Comment on above: Performed By: #### C BC, URIC, CRP, CK, ESR, TSH3, T4F, ADDONUAPLUS, CMP #### [address] #### RPR W RFX, HBCAB, HBSAG, QUANT TB, HCV RX PCR, HBSAB, ALDOLASE #### [facility] , GFR/1.73 sq M.predicted MDRD (S/P/Bld) [Vol rate/Area] mL/min/{1.73_m2} Normal [facility] Comment on above: Performed By: #### C BC, URIC, CRP, CK, ESR, TSH3, T4F, ADDONUAPLUS, CMP #### [place] [address] [place] #### RPR W RFX, HBCAB, HBSAG, QUANT TB, HCV RX PCR, HBSAB, ALDOLASE #### [facility] , Creatine kinase [Enzymatic a ctivity/volume] in Serum or PlasmaOrdered By: Alejandra Leonard on 12-10-2023 CK [Catalytic activity/Vol] 81 U/L Normal 30-223 [facility] Comment on above: Result Comment: PERF ORMED BY: [place] [address] PATHOLOGIST WHEY DEPARTMENT OPERATOR ALEXANDRA HATHAWAY M.D. Performed By: #### C BC, URIC, CRP, CK, ESR, TSH3, T4F, ADDONUAPLUS, CMP #### [place] [address] [place] #### RPR W RFX, HBCAB, HBSAG, QUANT TB, HCV RX PCR, HBSAB, ALDOLASE #### [facility] , Creatinine [Mass/volume] in Serum or PlasmaOrdered By: Alejandra Leonard on 12-10-2023 Creatinine [Mass/Vol] 0.92 mg/dL Normal 0.70-1.30 [facility] Comment on above: Performed By: #### C BC, URIC, CRP, CK, ESR, TSH3, T4F, ADDONUAPLUS, CMP #### [facility] [address] [place] [address] #### RPR W RFX, HBCAB, HBSAG, QUANT TB, HCV RX PCR, HBSAB, ALDOLASE #### [facility] , Dipstick and Microscopicon 0 12-10-2023 Bacteria,Urine 1+ High None Seen [facility] Comment on above: Order Comment: Name Collection Type:: Clean-Voided Midstream Result Comment: PERF ORMED BY: [place] [address] PATHOLOGIST WHEY DEPARTMENT OPERATOR ALEXANDRA HATHAWAY M.D. Performed By: #### L UPANTCOAG #### [facility] , #### PP #### [address] Bilirubin,Urine 1+ High Negative [facility] Comment on above: Order Comment: Name Collection Type:: Clean-Voided Midstream Performed By: #### L UPANTCOAG #### [facility] , #### PP #### [address] Glucose Ql (U) Normal Normal Normal [facility] Comment on above: Order Comment: Name Collection Type:: Clean-Voided Midstream Performed By: #### L UPANTCOAG #### [facility] , #### PP #### [address] Nitrite,Urine Negative Normal Negative [facility] Comment on above: Order Comment: Name Collection Type:: Clean-Voided Midstream Performed By: #### L UPANTCOAG #### [facility] , #### PP #### [address] Occult Blood,Urine Negative Normal Negative [facility] Comment on above: Order Comment: Name Collection Type:: Clean-Voided Midstream Performed By: #### L UPANTCOAG #### [facility] , #### PP #### [place] [address] [place] Protein,Urine Negative Normal Negative [facility] Comment on above: Order Comment: Name Collection Type:: Clean-Voided Midstream Performed By: #### L UPANTCOAG #### [facility] , #### PP #### [place] [address] [place] RBC LM.HPF (Urine sed) [#/Area] 0 /[HPF] Normal 0-4 [facility] Comment on above: Order Comment: Name Collection Type:: Clean-Voided Midstream Performed By: #### L UPANTCOAG #### [facility] , #### PP #### [address] Specificy Anderson,Urine 1.019 Normal 1.001-1.030 [facility] Comment on above: Order Comment: Name Collection Type:: Clean-Voided Midstream Performed By: #### L UPANTCOAG #### [facility] , #### PP #### [address] Squamous Epithelial Cell,Urine 1-2 Normal 0-2 [facility] Comment on above: Order Comment: Name Collection Type:: Clean-Voided Midstream Performed By: #### L UPANTCOAG #### [facility] , #### PP #### [place] [address] [place] Urobilinogen,Urine Normal Normal Normal [facility] Comment on above: Order Comment: Name Collection Type:: Clean-Voided Midstream Performed By: #### L UPANTCOAG #### [facility] , #### PP #### [address] WBC LM.HPF (Urine sed) [#/Area] 0 /[HPF] Normal 0-4 [facility] Comment on above: Order Comment: Name Collection Type:: Clean-Voided Midstream Performed By: #### L UPANTCOAG #### [facility] , #### PP #### [address] Epithelial cells.squamous [# /area] in Urine sediment by Microscopy high power fieldOrdered By: Alejandra Leonard on 12-10-2023 Epithelial cells.squamous LM.HPF (Urine sed) [#/Area] 1-2 [HPF] 0-2 [facility] Erythrocyte Sedimentation Ra timmy 12-10-2023 ESR (Bld) [Velocity] 13 mm/h Normal 0-14 [facility] Comment on above: Result Comment: PERF ORMED BY: [place] [address] PATHOLOGIST WHEY DEPARTMENT OPERATOR ALEXANDRA HATHAWAY M.D. Performed By: #### C BC, URIC, CRP, CK, ESR, TSH3, T4F, ADDONUAPLUS, CMP #### [address] #### RPR W RFX, HBCAB, HBSAG, QUANT TB, HCV RX PCR, HBSAB, ALDOLASE #### [facility] , Erythrocyte distribution wid th [Ratio] by Automated countOrdered By: Alejandra Leonard on 12-10-2023 Erythrocyte distribution width (RBC) [Ratio] 13.5 % Normal 12.0-14.8 [facility] Comment on above: Performed By: #### C BC, URIC, CRP, CK, ESR, TSH3, T4F, ADDONUAPLUS, CMP #### [address] #### RPR W RFX, HBCAB, HBSAG, QUANT TB, HCV RX PCR, HBSAB, ALDOLASE #### [facility] , Erythrocyte sedimentation ra te by Photometric methodOrdered By: Alejandratherese Leonard on 12-10-2023 ESR Photometric method (Bld) [Velocity] 13 mm/hr 0-14 [facility] Erythrocytes [#/area] in Uri ne sediment by Microscopy high power fieldOrdered By: Alejandra Leonard on 12-10-2023 RBC LM.HPF (Urine sed) [#/Area] 0-1 [HPF] 0-4 [facility] Erythrocytes [#/volume] in B lood by Automated countOrdered By: Alejandra Leonard on 12-10-2023 RBC (Bld) [#/Vol] 4.92 10*6/uL Normal 3.90-5.60 [facility] Comment on above: Performed By: #### C BC, URIC, CRP, CK, ESR, TSH3, T4F, ADDONUAPLUS, CMP #### [facility] [address] [place] [address] [place] #### RPR W RFX, HBCAB, HBSAG, QUANT TB, HCV RX PCR, HBSAB, ALDOLASE #### [facility] , Glucose [Mass/volume] in Ser um or PlasmaOrdered By: Alejandra Leonard on 12-10-2023 Glucose [Mass/Vol] 83 mg/dL Normal 70-100 [facility] Comment on above: ADA recommended refe rence rangeRandom Glucose Reference Range is dependent on time and content of last meal. Glucose of more than 200 mg/dL in a nonstressed, ambulatory subject supports the diagnosis of Diabetes Mellitus. Result Comment: [place] om Glucose Reference Range is dependent on time and content of last meal. Glucose of more than 200 mg/dL in a nonstressed, ambulatory subject supports the diagnosis of Diabetes Mellitus. ADA recommended reference range Performed By: #### C BC, URIC, CRP, CK, ESR, TSH3, T4F, ADDONUAPLUS, CMP #### [facility] [address] [place] [address] [place] #### RPR W RFX, HBCAB, HBSAG, QUANT TB, HCV RX PCR, HBSAB, ALDOLASE #### [facility] , Glucose [Mass/volume] in Uri ne by Test stripOrdered By: Alejandra Leonard on 12-10-2023 Glucose Test strip (U) [Mass/Vol] Normal mg/dL Normal [facility] Hematocrit [Volume Fraction] of Blood by Automated countOrdered By: Alejandra Leonard on 12-10-2023 Hematocrit (Bld) [Volume fraction] 42.7 % Normal 38.8-50.0 [facility] Comment on above: Performed By: #### C BC, URIC, CRP, CK, ESR, TSH3, T4F, ADDONUAPLUS, CMP #### [facility] [address] [place] [address] #### RPR W RFX, HBCAB, HBSAG, QUANT TB, HCV RX PCR, HBSAB, ALDOLASE #### [facility] , Hemoglobin Test strip Ql (U) Ordered By: Alejandra Leonard on 12-10-2023 Hemoglobin Ql (U) Negative Negative [facility] Hemoglobin [Mass/volume] in BloodOrdered By: Alejandra Leonard on 12-10-2023 Hemoglobin (Bld) [Mass/Vol] 14.6 g/dL Normal 13.0-17.0 [facility] Comment on above: Performed By: #### C BC, URIC, CRP, CK, ESR, TSH3, T4F, ADDONUAPLUS, CMP #### [address] #### RPR W RFX, HBCAB, HBSAG, QUANT TB, HCV RX PCR, HBSAB, ALDOLASE #### [facility] , Hep C Ab wRfx to Qnt PCRon 0 12-10-2023 Hepatitis C Virus Antibody Non-Reactive Normal Non Reactive [facility] Comment on above: Performed By: #### L UPANTCOAG #### [facility] , #### PP #### [facility] [address] [place] [address] Interpretation Hepatitis C Normal . [facility] Comment on above: Result Comment: Not infected with HCV unless early or acute infection is suspected (which may be delayed in an immunocompromised individual), or other evidence exists to indicate HCV infection. Performed By: #### L UPANTCOAG #### [facility] , #### PP #### [address] Hepatitis B Core Antibodyon 12-10-2023 Hepatitis B Core Antibody Negative Normal Negative [facility] Comment on above: Result Comment: Perf ormed at: - [facility] [address] [id number] Care Associate: Je Reveles PhD, Phone: [phone] Performed By: #### L UPANTCOAG #### [facility] , #### PP #### [address] Hepatitis B Surface Antibody on 12-10-2023 Hepatitis B Surface Antibody Non-Reactive Normal . [facility] Comment on above: Result Comment: Non Reactive: Inconsistent with immunity, less than 10 mIU/mL Reactive: Consistent with immunity, greater than 9.9 mIU/mL Performed By: #### L UPANTCOAG #### [facility] , #### PP #### [address] Hepatitis B Surface Antigeno n 12-10-2023 HBsAg Screen Negative Normal Negative [facility] Comment on above: Result Comment: PERF ORMED BY: [place] [address] PATHOLOGIST WHEY DEPARTMENT OPERATOR ALEXANDRA HATHAWAY M.D. Performed By: #### L UPANTCOAG #### [facility] , #### PP #### [address] INR in Platelet poor plasma by Coagulation assayOrdered By: Alejandra Leonard on 12-10-2023 INR Coag (PPP) [Relative time] 0.9 {INR} Normal [facility] Comment on above: INR Therapeutic Rang [...] UPANTCOAG #### [facility] , #### PP #### [address] Immunofixation, (JENNA), Urine on 12-10-2023 Immunofixation, (JENNA), Urine Normal . [facility] Comment on above: Result Comment: No m onoclonality detected. Performed at: - [facility] [address] [id number] Care Associate: Je Reveles PhD, Phone: [phone] Performed By: #### C BC, URIC, CRP, CK, ESR, TSH3, T4F, ADDONUAPLUS, CMP #### [place] [address] [place] #### RPR W RFX, HBCAB, HBSAG, QUANT TB, HCV RX PCR, HBSAB, ALDOLASE #### [facility] , Immunofixation,Serumon 12-09 Immunofixation, Serum Normal . [facility] Comment on above: Result Comment: No m onoclonality detected. Performed By: #### C BC, URIC, CRP, CK, ESR, TSH3, T4F, ADDONUAPLUS, CMP #### [place] [address] [place] #### RPR W RFX, HBCAB, HBSAG, QUANT TB, HCV RX PCR, HBSAB, ALDOLASE #### [facility] , Immunoglobulin A, Serum 182 mg/dL Normal 90-386 [facility] Comment on above: Performed By: #### C BC, URIC, CRP, CK, ESR, TSH3, T4F, ADDONUAPLUS, CMP #### [facility] [address] [place] [address] #### RPR W RFX, HBCAB, HBSAG, QUANT TB, HCV RX PCR, HBSAB, ALDOLASE #### [facility] , Immunoglobulin G 970 mg/dL Normal 603-1613 [facility] Comment on above: Performed By: #### C BC, URIC, CRP, CK, ESR, TSH3, T4F, ADDONUAPLUS, CMP #### [facility] [address] [place] [address] #### RPR W RFX, HBCAB, HBSAG, QUANT TB, HCV RX PCR, HBSAB, ALDOLASE #### [facility] , Immunoglobulin M, Serum 42 mg/dL Normal 20-172 [facility] Comment on above: Result Comment: Perf ormed at: CB - [facility] [place] [id number] Care Associate: Je Reveles PhD, Phone: [phone] Performed By: #### C BC, URIC, CRP, CK, ESR, TSH3, T4F, ADDONUAPLUS, CMP #### [facility] [address] [place] [address] #### RPR W RFX, HBCAB, HBSAG, QUANT TB, HCV RX PCR, HBSAB, ALDOLASE #### [facility] , Ketones [Presence] in Urine by Test stripOrdered By: Alejandra Leonard on 12-10-2023 Ketones Ql (U) Negative Normal Negative [facility] Comment on above: Order Comment: Name Collection Type:: Clean-Voided Midstream Performed By: #### L UPANTCOAG #### [facility] , #### PP #### [facility] [address] [place] [address] Leukocyte esterase [Presence ] in Urine by Test stripOrdered By: Alejandra Leonard on 12-10-2023 Leukocyte esterase Test strip Ql (U) Negative Normal Negative [facility] Comment on above: Order Comment: Name Collection Type:: Clean-Voided Midstream Performed By: #### L UPANTCOAG #### [facility] , #### PP #### [address] Leukocytes [#/area] in Urine sediment by Microscopy high power fieldOrdered By: Alejandra Lozanorow on 12-10-2023 WBC LM.HPF (Urine sed) [#/Area] 0-1 [HPF] 0-4 [facility] Leukocytes [#/volume] correc nathanael for nucleated erythrocytes in Blood by Automated counOrdered By: Alejandra Lozanorow on 12-10-2023 WBC corrected for nucl RBC Auto (Bld) [#/Vol] 7.7 10*3/uL 4.1-10.5 [facility] Leukocytes [#/volume] in Blo od by Automated countOrdered By: Alejandra Lozanorow on 12-10-2023 WBC (Bld) [#/Vol] 7.7 10*3/uL Normal 4.1-10.5 [facility] Comment on above: Performed By: #### C BC, URIC, CRP, CK, ESR, TSH3, T4F, ADDONUAPLUS, CMP #### [facility] [address] [place] [address] #### RPR W RFX, HBCAB, HBSAG, QUANT TB, HCV RX PCR, HBSAB, ALDOLASE #### [facility] , Lupus Anticoagulant Compon 0 12-10-2023 Dilute Prothrombin Time (dPt) 30.1 Normal 0.0-47.6 [facility] Comment on above: Performed By: #### L UPANTCOAG #### [facility] , #### PP #### [address] dPT Confirm Ratio 1.15 Normal 0.00-1.34 [facility] Comment on above: Performed By: #### L UPANTCOAG #### [facility] , #### PP #### [address] DRVVT Lupus 32.6 Normal 0.0-47.0 [facility] Comment on above: Performed By: #### L UPANTCOAG #### [facility] , #### PP #### [address] Interpretation Comment: Normal . [facility] Comment on above: Result Comment: No l upus anticoagulant was detected. Performed at: [facility] [address] [id number] Care Associate: Natalie Sellers MD, Phone: [phone] PERFORMED BY: [place] [address] PATHOLOGIST WHEY DEPARTMENT OPERATOR ALEXANDRA HATHAWAY M.D. Performed By: #### L UPANTCOAG #### [facility] , #### PP #### [address] PTT-LA 32.0 Normal 0.0-43.5 [facility] Comment on above: Performed By: #### L UPANTCOAG #### [facility] , #### PP #### [address] Thrombin Time 16.5 Normal 0.0-23.0 [facility] Comment on above: Performed By: #### L UPANTCOAG #### [facility] , #### PP #### [address] Lymphocytes [#/volume] in Bl ood by Automated countOrdered By: Alejandra Leonard on 12-10-2023 Lymphocytes (Bld) [#/Vol] 2.0 10*3/uL Normal 1.00-4.8 [facility] Comment on above: Performed By: #### C BC, URIC, CRP, CK, ESR, TSH3, T4F, ADDONUAPLUS, CMP #### [facility] [address] [place] [address] #### RPR W RFX, HBCAB, HBSAG, QUANT TB, HCV RX PCR, HBSAB, ALDOLASE #### [facility] , Lymphocytes/100 leukocytes i n Blood by Automated countOrdered By: Alejandra Leonard on 12-10-2023 Lymphocytes/100 WBC (Bld) 26.5 % Normal . [facility] Comment on above: Performed By: #### C BC, URIC, CRP, CK, ESR, TSH3, T4F, ADDONUAPLUS, CMP #### [address] #### RPR W RFX, HBCAB, HBSAG, QUANT TB, HCV RX PCR, HBSAB, ALDOLASE #### [facility] , MCH [Entitic mass] by Automa nathanael countOrdered By: Alejandra Leonard on 12-10-2023 MCH (RBC) [Entitic mass] 29.8 pg Normal 27.5-35.2 [facility] Comment on above: Performed By: #### C BC, URIC, CRP, CK, ESR, TSH3, T4F, ADDONUAPLUS, CMP #### [facility] [address] [place] [address] [place] #### RPR W RFX, HBCAB, HBSAG, QUANT TB, HCV RX PCR, HBSAB, ALDOLASE #### [facility] , MCHC Auto (RBC) [Mass/Vol]Or dered By: Alejandra Leonard on 12-10-2023 MCHC (RBC) [Mass/Vol] 34.2 g/dL 32.5-35.6 [facility] MCV [Entitic volume] by Auto mated countOrdered By: Alejandra Leonard on 12-10-2023 MCV (RBC) [Entitic vol] 86.9 fL Normal 83.5-101 [facility] Comment on above: Performed By: #### C BC, URIC, CRP, CK, ESR, TSH3, T4F, ADDONUAPLUS, CMP #### [facility] [address] [place] [address] #### RPR W RFX, HBCAB, HBSAG, QUANT TB, HCV RX PCR, HBSAB, ALDOLASE #### [facility] , Mitochondrial (M2) Antibodyo n 12-10-2023 Mitochondrial (M2) Antibody <20.0 Normal 0.0-20.0 [facility] Comment on above: Result Comment: Nega tive 0.0 - 20.0 Equivocal 20.1 - 24.9 Positive >24.9 Mitochondrial (M2) Antibodies are found in 90-96% of patients with primary biliary cirrhosis. Performed at: [address] [id number] Care Associate: Je Reveles PhD, Phone: [phone] Performed By: #### C BC, URIC, CRP, CK, ESR, TSH3, T4F, ADDONUAPLUS, CMP #### [address] #### RPR W RFX, HBCAB, HBSAG, QUANT TB, HCV RX PCR, HBSAB, ALDOLASE #### [facility] , Neutrophils [#/volume] in Bl ood by Automated countOrdered By: Alejandra Leonard on 12-10-2023 Neutrophils (Bld) [#/Vol] 4.7 10*3/uL Normal 1.8-7.7 [facility] Comment on above: Performed By: #### C BC, URIC, CRP, CK, ESR, TSH3, T4F, ADDONUAPLUS, CMP #### [facility] [address] [place] [address] [place] #### RPR W RFX, HBCAB, HBSAG, QUANT TB, HCV RX PCR, HBSAB, ALDOLASE #### [facility] , Nitrite Test strip Ql (U)Ord ered By: Alejandra Leonard on 12-10-2023 Nitrite Ql (U) Negative Negative [facility] No Panel InformationOrdered By: Alejandra Leonard on 12-10-2023 Estimated GFR (CKD-EPI) > 60.0 mL/Min [facility] Creatinine Clearance (Chem N/A [facility] Nucleated erythrocytes [Pres ence] in Blood by Automated countOrdered By: Alejandra Lozanorow on 12-10-2023 Nucleated RBC Auto Ql (Bld) 0.1 /100{WBC} 0-0.5 [facility] Platelet mean volume [Entiti c volume] in Blood by Automated countOrdered By: Alejandra Lozanorow on 12-10-2023 Platelet mean volume (Bld) [Entitic vol] 7.2 fL Normal 6.6-10.1 [facility] Comment on above: Performed By: #### C BC, URIC, CRP, CK, ESR, TSH3, T4F, ADDONUAPLUS, CMP #### [facility] [address] [place] [address] #### RPR W RFX, HBCAB, HBSAG, QUANT TB, HCV RX PCR, HBSAB, ALDOLASE #### [facility] , Platelets [#/volume] in Bloo d by Automated countOrdered By: Alejandra Lozanorow on 12-10-2023 Platelets (Bld) [#/Vol] 297 10*3/uL Normal 150-450 [facility] Comment on above: Performed By: #### C BC, URIC, CRP, CK, ESR, TSH3, T4F, ADDONUAPLUS, CMP #### [facility] [address] [place] [address] [place] #### RPR W RFX, HBCAB, HBSAG, QUANT TB, HCV RX PCR, HBSAB, ALDOLASE #### [facility] , Potassium [Moles/volume] in Serum or PlasmaOrdered By: Alejandratherese Leonard on 12-10-2023 Potassium [Moles/Vol] 4.2 mmol/L Normal 3.5-5.1 [facility] Comment on above: Performed By: #### C BC, URIC, CRP, CK, ESR, TSH3, T4F, ADDONUAPLUS, CMP #### [facility] [address] [place] [address] #### RPR W RFX, HBCAB, HBSAG, QUANT TB, HCV RX PCR, HBSAB, ALDOLASE #### [facility] , Protein Electro, Random Urin josé 12-10-2023 Albumin, Urine 47.5 % Normal . [facility] Comment on above: Performed By: #### C BC, URIC, CRP, CK, ESR, TSH3, T4F, ADDONUAPLUS, CMP #### [address] #### RPR W RFX, HBCAB, HBSAG, QUANT TB, HCV RX PCR, HBSAB, ALDOLASE #### [facility] , Fxkmq-7-Qyrvnacz, Urine 3.4 % Normal . [facility] Comment on above: Performed By: #### C BC, URIC, CRP, CK, ESR, TSH3, T4F, ADDONUAPLUS, CMP #### [address] #### RPR W RFX, HBCAB, HBSAG, QUANT TB, HCV RX PCR, HBSAB, ALDOLASE #### [facility] , Kumqo-1-Gcukehsw, Urine 23.0 % Normal . [facility] Comment on above: Performed By: #### C BC, URIC, CRP, CK, ESR, TSH3, T4F, ADDONUAPLUS, CMP #### [address] #### RPR W RFX, HBCAB, HBSAG, QUANT TB, HCV RX PCR, HBSAB, ALDOLASE #### [facility] , Beta Globulin, Urine 19.7 % Normal . [facility] Comment on above: Performed By: #### C BC, URIC, CRP, CK, ESR, TSH3, T4F, ADDONUAPLUS, CMP #### [address] #### RPR W RFX, HBCAB, HBSAG, QUANT TB, HCV RX PCR, HBSAB, ALDOLASE #### [facility] , Gamma Globulin, Urine 6.4 % Normal . [facility] Comment on above: Performed By: #### C BC, URIC, CRP, CK, ESR, TSH3, T4F, ADDONUAPLUS, CMP #### [place] [address] [place] #### RPR W RFX, HBCAB, HBSAG, QUANT TB, HCV RX PCR, HBSAB, ALDOLASE #### [facility] , M-Gaudencio % Not Observed Normal Not Observed [facility] Comment on above: Performed By: #### C BC, URIC, CRP, CK, ESR, TSH3, T4F, ADDONUAPLUS, CMP #### [address] #### RPR W RFX, HBCAB, HBSAG, QUANT TB, HCV RX PCR, HBSAB, ALDOLASE #### [facility] , Please Note: Normal . [facility] Comment on above: Result Comment: Prot ein electrophoresis scan will follow via computer, mail, or lease operator delivery. Performed at: - [facility] [id number] Care Associate: Je Reveles PhD, Phone: [phone] PERFORMED BY: [place] [address] PATHOLOGIST WHEY DEPARTMENT OPERATOR ALEXANDRA HATHAWAY M.D. Performed By: #### C BC, URIC, CRP, CK, ESR, TSH3, T4F, ADDONUAPLUS, CMP #### [address] #### RPR W RFX, HBCAB, HBSAG, QUANT TB, HCV RX PCR, HBSAB, ALDOLASE #### [facility] , Protein (U) [Mass/Vol] 13.7 mg/dL Normal Not Estab. [facility] Comment on above: Performed By: #### C BC, URIC, CRP, CK, ESR, TSH3, T4F, ADDONUAPLUS, CMP #### [address] #### RPR W RFX, HBCAB, HBSAG, QUANT TB, HCV RX PCR, HBSAB, ALDOLASE #### [facility] , Protein Electrophoresis, Ser umon 12-10-2023 Albumin [Mass/Vol] 4.2 g/dL Normal 2.9-4.4 [facility] Comment on above: Performed By: #### C BC, URIC, CRP, CK, ESR, TSH3, T4F, ADDONUAPLUS, CMP #### [place] [address] [place] #### RPR W RFX, HBCAB, HBSAG, QUANT TB, HCV RX PCR, HBSAB, ALDOLASE #### [facility] , Albumin/Globulin [Mass ratio] 1.4 {ratio} Normal 0.7-1.7 [facility] Comment on above: Performed By: #### C BC, URIC, CRP, CK, ESR, TSH3, T4F, ADDONUAPLUS, CMP #### [address] #### RPR W RFX, HBCAB, HBSAG, QUANT TB, HCV RX PCR, HBSAB, ALDOLASE #### [facility] , Nwbdl-7-Zfcneosh 0.3 g/dL Normal 0.0-0.4 [facility] Comment on above: Performed By: #### C BC, URIC, CRP, CK, ESR, TSH3, T4F, ADDONUAPLUS, CMP #### [place] [address] [place] #### RPR W RFX, HBCAB, HBSAG, QUANT TB, HCV RX PCR, HBSAB, ALDOLASE #### [facility] , Ibvph-8-Oyjghsom 0.9 g/dL Normal 0.4-1.0 [facility] Comment on above: Performed By: #### C BC, URIC, CRP, CK, ESR, TSH3, T4F, ADDONUAPLUS, CMP #### [address] #### RPR W RFX, HBCAB, HBSAG, QUANT TB, HCV RX PCR, HBSAB, ALDOLASE #### [facility] , Beta Globulin 1.0 g/dL Normal 0.7-1.3 [facility] Comment on above: Performed By: #### C BC, URIC, CRP, CK, ESR, TSH3, T4F, ADDONUAPLUS, CMP #### [address] #### RPR W RFX, HBCAB, HBSAG, QUANT TB, HCV RX PCR, HBSAB, ALDOLASE #### [facility] , Gamma Globulin 0.9 g/dL Normal 0.4-1.8 [facility] Comment on above: Performed By: #### C BC, URIC, CRP, CK, ESR, TSH3, T4F, ADDONUAPLUS, CMP #### [address] #### RPR W RFX, HBCAB, HBSAG, QUANT TB, HCV RX PCR, HBSAB, ALDOLASE #### [facility] , Globulin (S) [Mass/Vol] 3.1 g/dL Normal 2.2-3.9 [facility] Comment on above: Performed By: #### C BC, URIC, CRP, CK, ESR, TSH3, T4F, ADDONUAPLUS, CMP #### [place] [address] [place] #### RPR W RFX, HBCAB, HBSAG, QUANT TB, HCV RX PCR, HBSAB, ALDOLASE #### [facility] , M-Gaudencio Not Observed Normal Not Observed [facility] Comment on above: Performed By: #### C BC, URIC, CRP, CK, ESR, TSH3, T4F, ADDONUAPLUS, CMP #### [place] [address] [place] #### RPR W RFX, HBCAB, HBSAG, QUANT TB, HCV RX PCR, HBSAB, ALDOLASE #### [facility] , Protein [Mass/Vol] 7.3 g/dL Normal 6.0-8.5 [facility] Comment on above: Performed By: #### C BC, URIC, CRP, CK, ESR, TSH3, T4F, ADDONUAPLUS, CMP #### [address] #### RPR W RFX, HBCAB, HBSAG, QUANT TB, HCV RX PCR, HBSAB, ALDOLASE #### [facility] , SPE-Note Normal . [facility] Comment on above: Result Comment: Prot ein electrophoresis scan will follow via computer, mail, or lease operator delivery. Performed at: [address] [id number] Care Associate: Je Reveles PhD, Phone: [phone] PERFORMED BY: [place] [address] PATHOLOGIST WHEY DEPARTMENT OPERATOR ALEXANDRA HATHAWAY M.D. Performed By: #### C BC, URIC, CRP, CK, ESR, TSH3, T4F, ADDONUAPLUS, CMP #### [address] #### RPR W RFX, HBCAB, HBSAG, QUANT TB, HCV RX PCR, HBSAB, ALDOLASE #### [facility] , Protein Test strip (U) [Mass /Vol]Ordered By: Alejandra Leonard on 12-10-2023 Protein (U) [Mass/Vol] Negative Negative [facility] Protein [Mass/volume] in Ser um or PlasmaOrdered By: Alejandra Leonard on 12-10-2023 Protein [Mass/Vol] 7.2 g/dL Normal 6.4-8.9 [facility] Comment on above: Performed By: #### C BC, URIC, CRP, CK, ESR, TSH3, T4F, ADDONUAPLUS, CMP #### [place] [address] [place] #### RPR W RFX, HBCAB, HBSAG, QUANT TB, HCV RX PCR, HBSAB, ALDOLASE #### [facility] , Prothrombin time (PT)Ordered By: Alejandra Horacio on 12-10-2023 PT Coag (PPP) [Time] 10.3 s Normal 9.0-12.9 [facility] Comment on above: A hematocrit value g reater than 55% may lead to inaccurate results in coagulation testing. Patients having hematocrit values >55% require a special collection tube for coagulation studies. Please contact the laboratory at [phone] for redraw instructions. Result Comment: A he matocrit value greater than 55% may lead to inaccurate results in coagulation testing. Patients having hematocrit values >55% require a special collection tube for coagulation studies. Please contact the laboratory at [phone] for redraw instructions. Performed By: #### L UPANTCOAG #### [facility] , #### PP #### [facility] [address] QuantiFERON TB Goldon 2023 QFTB Criteria Normal . [facility] Comment on above: Result Comment: [...] UPANTCOAG #### [facility] , #### PP #### [facility] [address] Quant TB Ag Value 0.08 Normal . [facility] Comment on above: Performed By: #### L UPANTCOAG #### [facility] , #### PP #### [facility] [address] Quant TB Gold Plus Negative Normal Negative [facility] Comment on above: Result Comment: [...] interferon gamma. Chemiluminescence immunoassay methodology Performed at: [facility] [address] [id number] Care Associate: Je Reveles PhD, Phone: [phone] PERFORMED BY: [place] [address] PATHOLOGIST WHEY DEPARTMENT OPERATOR ALEXANDRA HATHAWAY M.D. Performed By: #### L UPANTCOAG #### [facility] , #### PP #### [address] Quant TB2 Ag Value 0.09 Normal . [facility] Comment on above: Performed By: #### L UPANTCOAG #### [facility] , #### PP #### [address] Quantiferon Nil Value 0.08 Normal . [facility] Comment on above: Performed By: #### L UPANTCOAG #### [facility] , #### PP #### [place] [address] [place] Quantiferon TB Mitogen >10.00 Normal . [facility] Comment on above: Performed By: #### L UPANTCOAG #### [facility] , #### PP #### [place] [address] [place] RPR w/rfx to Quant TP Abson 12-10-2023 RPR, Rfx Quant RPR Non-Reactive Normal Non Reactive [facility] Comment on above: Result Comment: Perf ormed at: - [facility] [id number] [place], [place] [id number] Care Associate: Je Reveles PhD, Phone: [phone] PERFORMED BY: [place] [address] PATHOLOGIST WHEY DEPARTMENT OPERATOR ALEXANDRA HATHAWAY M.D. Performed By: #### L UPANTCOAG #### [facility] , #### PP #### [address] Serum globulin measurement b y calculation (mass/volume)Ordered By: Alejandra Leonard on 12-10-2023 Globulin (S) [Mass/Vol] 2.4 g/dL [facility] Comment on above: Performed By: #### C BC, URIC, CRP, CK, ESR, TSH3, T4F, ADDONUAPLUS, CMP #### [facility] [address] [place] [address] #### RPR W RFX, HBCAB, HBSAG, QUANT TB, HCV RX PCR, HBSAB, ALDOLASE #### [facility] , Serum or plasma albumin/glob ulin mass ratioOrdered By: Alejandra Leonard on 12-10-2023 Albumin/Globulin [Mass ratio] 2.0 {ratio} [facility] Comment on above: Performed By: #### C BC, URIC, CRP, CK, ESR, TSH3, T4F, ADDONUAPLUS, CMP #### [facility] [address] [place] [address] #### RPR W RFX, HBCAB, HBSAG, QUANT TB, HCV RX PCR, HBSAB, ALDOLASE #### [facility] , Serum or plasma anion gap de terminationOrdered By: Alejandra Leonard on 12-10-2023 Anion gap [Moles/Vol] 9.9 mmol/L Normal 6.0-15.0 [facility] Comment on above: Performed By: #### C BC, URIC, CRP, CK, ESR, TSH3, T4F, ADDONUAPLUS, CMP #### [facility] [address] [place] [address] [place] #### RPR W RFX, HBCAB, HBSAG, QUANT TB, HCV RX PCR, HBSAB, ALDOLASE #### [facility] , Smooth Muscle Antibodyon Smooth Muscle Antibody 3 Normal 0-19 [facility] Comment on above: Result Comment: Nega tive 0 - 19 Weak positive 20 - 30 Moderate to strong positive >30 Actin Antibodies are found in 52-85% of patients with autoimmune hepatitis or chronic active hepatitis and in 22% of patients with primary biliary cirrhosis. Performed By: #### C BC, URIC, CRP, CK, ESR, TSH3, T4F, ADDONUAPLUS, CMP #### [facility] [address] [place] [address] [place] #### RPR W RFX, HBCAB, HBSAG, QUANT TB, HCV RX PCR, HBSAB, ALDOLASE #### [facility] , Sodium [Moles/volume] in Ser um or PlasmaOrdered By: Alejandra Leonard on 12-10-2023 Sodium [Moles/Vol] 139 mmol/L Normal 136-145 [facility] Comment on above: Performed By: #### C BC, URIC, CRP, CK, ESR, TSH3, T4F, ADDONUAPLUS, CMP #### [facility] [address] [place] [address] [place] #### RPR W RFX, HBCAB, HBSAG, QUANT TB, HCV RX PCR, HBSAB, ALDOLASE #### [facility] , Specific gravity Test strip (U) [Rel density]Ordered By: Alejandra Leonard on 12-10-2023 Specific gravity (U) [Rel density] 1.019 1.001-1.030 [facility] Thyroid Peroxidase Antibodie son 12-10-2023 Thyroid Peroxidase Antibodies <9 Normal 0-34 [facility] Comment on above: Result Comment: Perf ormed at: - [facility] [address] [id number] Care Associate: Je Reveles PhD, Phone: [phone] Performed By: #### C BC, URIC, CRP, CK, ESR, TSH3, T4F, ADDONUAPLUS, CMP #### [address] #### RPR W RFX, HBCAB, HBSAG, QUANT TB, HCV RX PCR, HBSAB, ALDOLASE #### [facility] , Thyrotropin [Units/volume] i n Serum or PlasmaOrdered By: Alejandra Leonard on 12-10-2023 TSH Qn 3.05 m[IU]/L Normal 0.45-5.33 [facility] Comment on above: Result Comment: PERF ORMED BY: [place] [address] PATHOLOGIST WHEY DEPARTMENT OPERATOR ALEXANDRA HATHAWAY M.D. Performed By: #### C BC, URIC, CRP, CK, ESR, TSH3, T4F, ADDONUAPLUS, CMP #### [address] #### RPR W RFX, HBCAB, HBSAG, QUANT TB, HCV RX PCR, HBSAB, ALDOLASE #### [facility] , Thyroxine (T4) free [Mass/vo lume] in Serum or PlasmaOrdered By: Alejandra Leonard on 12-10-2023 Free T4 [Mass/Vol] 0.84 ng/dL Normal 0.61-1.12 [facility] Comment on above: Performed By: #### C BC, URIC, CRP, CK, ESR, TSH3, T4F, ADDONUAPLUS, CMP #### [address] #### RPR W RFX, HBCAB, HBSAG, QUANT TB, HCV RX PCR, HBSAB, ALDOLASE #### [facility] , Urate [Mass/volume] in Serum or PlasmaOrdered By: Alejandra Leonard on 12-10-2023 Urate [Mass/Vol] 4.3 mg/dL Low 4.4-7.6 [facility] Comment on above: Performed By: #### C BC, URIC, CRP, CK, ESR, TSH3, T4F, ADDONUAPLUS, CMP #### [facility] [address] [place] [address] #### RPR W RFX, HBCAB, HBSAG, QUANT TB, HCV RX PCR, HBSAB, ALDOLASE #### [facility] , Urea nitrogen [Mass/volume] in Serum or PlasmaOrdered By: Alejandra Leonard on 12-10-2023 Urea nitrogen [Mass/Vol] 14 mg/dL Normal 7-25 [facility] Comment on above: Performed By: #### C BC, URIC, CRP, CK, ESR, TSH3, T4F, ADDONUAPLUS, CMP #### [facility] [address] [place] [address] #### RPR W RFX, HBCAB, HBSAG, QUANT TB, HCV RX PCR, HBSAB, ALDOLASE #### [facility] , Urine appearanceOrdered By: Alejandra Lozanorow on 12-10-2023 Appearance (U) Clear Normal Clear [facility] Comment on above: Order Comment: Name Collection Type:: Clean-Voided Midstream Performed By: #### L UPANTCOAG #### [facility] , #### PP #### [address] Urobilinogen Test strip (U) [Mass/Vol]Ordered By: Alejandra Leonard on 12-10-2023 Urobilinogen (U) [Mass/Vol] Normal mg/dL Normal [facility] pH of Urine by Test stripOrd ered By: Alejandra Horacio on 12-10-2023 pH (U) 6.0 [pH] Normal 5.0-9.0 [facility] Comment on above: Order Comment: Name Collection Type:: Clean-Voided Midstream Performed By: #### L UPANTCOAG #### [facility] , #### PP #### [address] MR KNEE LEFT WO IV CONTRASTo [...] 04-05-2022 BASO # 0.0 103/ul Normal 0.0-0.1 [facility] Comment on above: Performed By: #### C BC #### [facility] [address] [address] [address] Sherry Pal Basophils/100 WBC (Bld) 0.5 % Normal 0.2-2.0 [facility] Comment on above: Performed By: #### C BC #### [facility] [address] [address] [address] Sherry Pal EO # 0.2 103/ul Normal 0.0-0.7 [facility] Comment on above: Performed By: #### C BC #### [facility] [address] [address] [address] Sherry Pal Eosinophils/100 WBC (Bld) 4.0 % Normal 0.9-7.0 [facility] Comment on above: Performed By: #### C BC #### [facility] [address] [address] [address] Sherry Pal Erythrocyte distribution width (RBC) [Ratio] 13.2 % Normal 11.0-15.0 [facility] Comment on above: Performed By: #### C BC #### [facility] [address] [place] [address] Dr. Sherry Pal Hematocrit (Bld) [Volume fraction] 41.1 % Critically low 42.0-54.0 [facility] Comment on above: Performed By: #### C BC #### [facility] [address] [place] [address] Dr. Sherry Pal Hemoglobin (Bld) [Mass/Vol] 14.2 g/dL Normal 14.0-18.0 [facility] Comment on above: Performed By: #### C BC #### [facility] [address] [place] [address] Dr. Sherry Pal IG # 0.03 10e3/ul Normal 0.00-0.03 [facility] Comment on above: Performed By: #### C BC #### [facility] [address] [place] [address] Dr. Sherry Pal IG % 0.5 % Normal 0.0-0.5 [facility] Comment on above: Performed By: #### C BC #### [facility] [address] [place] [address] Dr. Sherry Pal LYMPH # 1.4 103/ul Normal 1.2-3.8 [facility] Comment on above: Performed By: #### C BC #### [facility] [address] [place] [address] Dr. Sherry Pal Lymphocytes/100 WBC (Bld) 23.8 % Normal 20.5-60.0 [facility] Comment on above: Performed By: #### C BC #### [facility] [address] [place] [address] Dr. Sherry Pal MANUAL DIFF REQ NO Normal [facility] Comment on above: Performed By: #### C BC #### [facility] [address] [place] [address] Dr. Sherry Pal MCH (RBC) [Entitic mass] 30.4 pg Normal 25.9-34.0 [facility] Comment on above: Performed By: #### C BC #### [facility] [address] [place] [address] Dr. Sherry Pal MCHC (RBC) [Mass/Vol] 34.5 g/dL Normal 29.9-35.2 [facility] Comment on above: Performed By: #### C BC #### [facility] [address] [address] [address] Sherry Pal MCV (RBC) [Entitic vol] 88.0 fL Normal 80.0-94.0 [facility] Comment on above: Performed By: #### C BC #### [facility] [address] [address] [address] Sherry Pal MONO # 0.8 103/ul Normal 0.3-0.8 [facility] Comment on above: Performed By: #### C BC #### [facility] [address] [address] [address] Sherry Pal Monocytes/100 WBC (Bld) 12.4 % Critically high 1.7-12.0 [facility] Comment on above: Performed By: #### C BC #### [facility] [address] [place] [address] Dr. Sherry Pal NEUT # 3.6 103/ul Normal 1.4-6.5 [facility] Comment on above: Performed By: #### C BC #### [facility] [address] [place] [address] Dr. Sherry Pal Neutrophils/100 WBC (Bld) 58.8 % Normal 43.0-75.0 [facility] Comment on above: Performed By: #### C BC #### [facility] [address] [place] [address] Dr. Sherry Pal Platelet mean volume (Bld) [Entitic vol] 9.7 fL Normal 9.5-13.5 [facility] Comment on above: Performed By: #### C BC #### [facility] [address] [place] [address] Dr. Sherry Pal PLT 351 103/ul Normal 150-450 [facility] Comment on above: Performed By: #### C BC #### [facility] [address] [place] [address] Dr. Sherry Pal RBC 4.67 106/ul Critically low 4.70-6.10 [facility] Comment on above: Performed By: #### C BC #### [facility] [address] [place] [address] Dr. Sherry Pal WBC 6.0 103/ul Normal 4.0-11.0 [facility] Comment on above: Performed By: #### C BC #### [facility] [address] [place] [address] Dr. Sherry Pal [facility] SARS-CoV-2 (COVID-19) RNA NINA+probe Ql (Unsp spec) Not detected Normal NOT DETECTED [facility] Comment on above: Result Comment: When [...] for this test is supported by the Manager Emergency of Health and Human Service's declaration that [...] used). Performed By: #### C VDTB #### [facility] [address] [place] [address] Dr. Sherry Pal PROF 14(COMP METB)on 022 Albumin [Mass/Vol] 3.9 g/dL Normal 3.4-5.0 [facility] Comment on above: Performed By: #### C MP #### [facility] [address] [place] [address] Dr. Sherry Pal Albumin/Globulin [Mass ratio] 1.3 {ratio} Normal [facility] Comment on above: Performed By: #### C MP #### [facility] [address] [place] [address] Dr. Sherry Pal ALP [Catalytic activity/Vol] 124 U/L Critically high 46-116 [facility] Comment on above: Performed By: #### C MP #### [facility] [address] [address] [address] Sherry Pal ALT [Catalytic activity/Vol] 20 U/L Normal 16-63 [facility] Comment on above: Performed By: #### C MP #### [facility] [address] [address] [address] Sherry Pal Anion gap [Moles/Vol] 8.9 mmol/L Normal [facility] Comment on above: Performed By: #### C MP #### [facility] [address] [address] [address] Sherry Pal AST [Catalytic activity/Vol] 18 U/L Normal 15-37 [facility] Comment on above: Performed By: #### C MP #### [facility] [address] [place] [address] Dr. Sherry Pal Bilirubin [Mass/Vol] 0.2 mg/dL Normal 0.2-1.0 [facility] Comment on above: Performed By: #### C MP #### [facility] [address] [address] [address] hSerry Pal Calcium [Mass/Vol] 9.0 mg/dL Normal 8.5-10.1 [facility] Comment on above: Performed By: #### C MP #### [facility] [address] [address] [address] Sherry Pal Chloride [Moles/Vol] 105 mmol/L Normal 98-107 [facility] Comment on above: Performed By: #### C MP #### [facility] [address] [address] [address] Sherry Pal CO2 [Moles/Vol] 29.5 mmol/L Normal 21.0-32.0 [facility] Comment on above: Performed By: #### C MP #### [facility] [address] [address] [address] Sherry Pal Creatinine [Mass/Vol] 0.87 mg/dL Normal 0.70-1.30 [facility] Comment on above: Performed By: #### C MP #### [facility] [address] [address] [address] Sherry Pal EGFR-AF WELSH >60 Normal >=60 [facility] Comment on above: Performed By: #### C MP #### [facility] [address] [address] [address] Sherry Pal EGFR-NON AF WELSH >60 Normal >=60 [facility] Comment on above: Performed By: #### C MP #### [facility] [address] [address] [address] Sherry Pal Globulin (S) [Mass/Vol] 2.9 g/dL Normal [facility] Comment on above: Performed By: #### C MP #### [facility] [address] [place] [address] Dr. Sherry Pal Glucose [Mass/Vol] 83 mg/dL Normal 74-106 [facility] Comment on above: Performed By: #### C MP #### [facility] [address] [address] [address] Sherry Pal Potassium [Moles/Vol] 4.4 mmol/L Normal 3.5-5.1 [facility] Comment on above: Performed By: #### C MP #### [facility] [address] [place] [address] Dr. Sherry Pal Protein [Mass/Vol] 6.8 g/dL Normal 6.4-8.2 [facility] Comment on above: Performed By: #### C MP #### [facility] [address] [address] [address] Sherry Pal Sodium [Moles/Vol] 139 mmol/L Normal 136-145 [facility] Comment on above: Performed By: #### C MP #### [facility] [address] [place] [address] Dr. Sherry Pal Urea nitrogen [Mass/Vol] 6.0 mg/dL Critically low 7.0-18.0 [facility] Comment on above: Performed By: #### C MP #### [facility] [address] [address] [address] Sherry Pal Urea nitrogen/Creatinine [Mass ratio] 6.9 mg/mg Normal [facility] Comment on above: Performed By: #### C MP #### [facility] [address] [place] [address] Dr. Sherry Pal CBC AUTO DIFFon 10-02-2021 BASO # 0.0 103/ul Normal 0.0-0.1 [facility] Comment on above: Performed By: #### C BC #### [facility] [address] [place] [address] Dr. Sherry Pal Basophils/100 WBC (Bld) 0.4 % Normal 0.2-2.0 [facility] Comment on above: Performed By: #### C BC #### [facility] [address] [place] [address] Dr. Sherry Pal EO # 0.2 103/ul Normal 0.0-0.7 [facility] Comment on above: Performed By: #### C BC #### [facility] [address] [place] [address] Dr. Sherry Pal Eosinophils/100 WBC (Bld) 3.2 % Normal 0.9-7.0 [facility] Comment on above: Performed By: #### C BC #### [facility] [address] [place] [address] Dr. Sherry Pal Erythrocyte distribution width (RBC) [Ratio] 12.9 % Normal 11.0-15.0 [facility] Comment on above: Performed By: #### C BC #### [facility] [address] [place] [address] Dr. Sherry Pal Hematocrit (Bld) [Volume fraction] 38.8 % Critically low 42.0-54.0 [facility] Comment on above: Performed By: #### C BC #### [facility] [address] [place] [address] Dr. Sherry Pal Hemoglobin (Bld) [Mass/Vol] 13.0 g/dL Critically low 14.0-18.0 [facility] Comment on above: Performed By: #### C BC #### [facility] [address] [place] [address] Dr. Sherry Pal IG # 0.01 10e3/ul Normal 0.00-0.03 [facility] Comment on above: Performed By: #### C BC #### [facility] [address] [place] [address] Dr. Sherry Pal IG % 0.2 % Normal 0.0-0.5 [facility] Comment on above: Performed By: #### C BC #### [facility] [address] [place] [address] Dr. Sherry Pal LYMPH # 0.8 103/ul Critically low 1.2-3.8 [facility] Comment on above: Performed By: #### C BC #### [facility] [address] [place] [address] Dr. Sherry Pal Lymphocytes/100 WBC (Bld) 16.8 % Critically low 20.5-60.0 [facility] Comment on above: Performed By: #### C BC #### [facility] [address] [place] [address] Dr. Sherry Pal MANUAL DIFF REQ NO Normal [facility] Comment on above: Performed By: #### C BC #### [facility] [address] [place] [address] Dr. Sherry Pal MCH (RBC) [Entitic mass] 29.4 pg Normal 25.9-34.0 [facility] Comment on above: Performed By: #### C BC #### [facility] [address] [place] [address] Dr. Sherry Pal MCHC (RBC) [Mass/Vol] 33.5 g/dL Normal 29.9-35.2 [facility] Comment on above: Performed By: #### C BC #### [facility] [address] [place] [address] Dr. Sherry Pal MCV (RBC) [Entitic vol] 87.8 fL Normal 80.0-94.0 [facility] Comment on above: Performed By: #### C BC #### [facility] [address] [place] [address] Dr. Sherry Pal MONO # 0.6 103/ul Normal 0.3-0.8 [facility] Comment on above: Performed By: #### C BC #### [facility] [address] [place] [address] Dr. Sherry Pal Monocytes/100 WBC (Bld) 13.8 % Critically high 1.7-12.0 [facility] Comment on above: Performed By: #### C BC #### [facility] [address] [place] [address] Dr. Sherry Pal NEUT # 3.0 103/ul Normal 1.4-6.5 [facility] Comment on above: Performed By: #### C BC #### [facility] [address] [place] [address] Dr. Sherry Pal Neutrophils/100 WBC (Bld) 65.6 % Normal 43.0-75.0 [facility] Comment on above: Performed By: #### C BC #### [facility] [address] [place] [address] Dr. Sherry Pal Platelet mean volume (Bld) [Entitic vol] 8.6 fL Critically low 9.5-13.5 [facility] Comment on above: Performed By: #### C BC #### [facility] [address] [place] [address] Dr. Sherry Pal PLT 230 103/ul Normal 150-450 [facility] Comment on above: Performed By: #### C BC #### [facility] [address] [place] [address] Dr. Sherry Pal RBC 4.42 106/ul Critically low 4.70-6.10 [facility] Comment on above: Performed By: #### C BC #### [facility] [address] [place] [address] Dr. Sherry Pal WBC 4.6 103/ul Normal 4.0-11.0 [facility] Comment on above: Performed By: #### C BC #### [facility] [address] [place] [address] Dr. Sherry Pal LIPASEon 10-02-2021 Lipase [Catalytic activity/Vol] 113.0 U/L Normal 23.0-300.0 [facility] Comment on above: Performed By: #### C MP, LIPA #### [facility] [address] [place] [address] Dr. Sherry Pal PROF 14(COMP METB)on 022 Albumin [Mass/Vol] 3.7 g/dL Normal 3.4-5.0 [facility] Comment on above: Performed By: #### C MP, LIPA #### [facility] [address] [place] [address] Dr. Sherry Pal Albumin/Globulin [Mass ratio] 1.4 {ratio} Normal [facility] Comment on above: Performed By: #### C MP, LIPA #### [facility] [address] [place] [address] Dr. Sherry Pal ALP [Catalytic activity/Vol] 83 U/L Normal 46-116 [facility] Comment on above: Performed By: #### C MP, LIPA #### [facility] [address] [place] [address] Dr. Sherry Pal ALT [Catalytic activity/Vol] 16 U/L Normal 16-63 [facility] Comment on above: Performed By: #### C MP, LIPA #### [facility] [address] [place] [address] Dr. Sherry Pal Anion gap [Moles/Vol] 12.3 mmol/L Normal [facility] Comment on above: Performed By: #### C MP, LIPA #### [facility] [address] [place] [address] Dr. Sherry Pal AST [Catalytic activity/Vol] 14 U/L Critically low 15-37 [facility] Comment on above: Performed By: #### C MP, LIPA #### [facility] [address] [place] [address] Dr. Sherry Pal Bilirubin [Mass/Vol] 0.4 mg/dL Normal 0.2-1.3 [facility] Comment on above: Performed By: #### C MP, LIPA #### [facility] [address] [place] [address] Dr. Sherry Pal Calcium [Mass/Vol] 8.3 mg/dL Critically low 8.5-10.1 [facility] Comment on above: Performed By: #### C MP, LIPA #### [facility] [address] [place] [address] Dr. Sherry Pal Chloride [Moles/Vol] 102 mmol/L Normal 98-107 [facility] Comment on above: Performed By: #### C MP, LIPA #### [facility] [address] [place] [address] Dr. hSerry Pal CO2 [Moles/Vol] 27.4 mmol/L Normal 22.0-30.0 [facility] Comment on above: Performed By: #### C MP, LIPA #### [facility] [address] [place] [address] Dr. Sherry Pal Creatinine [Mass/Vol] 0.94 mg/dL Normal 0.66-1.25 [facility] Comment on above: Performed By: #### C MP, LIPA #### [facility] [address] [place] [address] Dr. Sherry Pal EGFR-AF WELSH >60 Normal >=60 [facility] Comment on above: Performed By: #### C MP, LIPA #### [facility] [address] [place] [address] Dr. Sherry Pal EGFR-NON AF WELSH >60 Normal >=60 [facility] Comment on above: Performed By: #### C MP, LIPA #### [facility] [address] [place] [address] Dr. Sherry Pal Globulin (S) [Mass/Vol] 2.6 g/dL Normal [facility] Comment on above: Performed By: #### C MP, LIPA #### [facility] [address] [place] [address] Dr. Sherry Pal Glucose [Mass/Vol] 91 mg/dL Normal 74-106 [facility] Comment on above: Performed By: #### C MP, LIPA #### [facility] [address] [place] [address] Dr. Sherry Pal Potassium [Moles/Vol] 3.7 mmol/L Normal 3.4-5.0 [facility] Comment on above: Performed By: #### C MP, LIPA #### [facility] [address] [address] [address] Sherry Pal Protein [Mass/Vol] 6.3 g/dL Normal 6.1-8.2 [facility] Comment on above: Performed By: #### C MP, LIPA #### [facility] [address] [address] [address] Sherry Pal Sodium [Moles/Vol] 138 mmol/L Normal 137-145 [facility] Comment on above: Performed By: #### C MP, LIPA #### [facility] [address] [place] [address] Dr. Sherry Pal Urea nitrogen [Mass/Vol] 7.0 mg/dL Normal 7.0-18.0 [facility] Comment on above: Performed By: #### C TERE, LIPA #### [facility] [address] [place] [address] Dr. Sherry Pal Urea nitrogen/Creatinine [Mass ratio] 7.4 mg/mg Normal [facility] Comment on above: Performed By: #### C MP, LIPA #### [facility] [address] [place] [address] Dr. Sherry Pal XR ABD FLAT UP_PA [...] Rosy MONTANEZ Date: 2021-10-02 05:25 Normal [facility] Vital Signs Date Time Vital Sign Value Performing Clinician Faci lity 02-09-2024 14:08-0400 Body height 172.7 cm Alejandra Mann DO Work Phone: [facility] 02-09-2024 14:08-0400 Body mass index (BMI) [Ratio] 24.48 kg/m2 Alejandra Petznick DO Work Phone: [facility] 02-09-2024 14:08-0400 Body temperature 98.8 [degF] Alejandra Petznick DO Work Phone: [facility] 02-09-2024 14:08-0400 Body weight 73.03 kg Alejandra Petznick DO Work Phone: [facility] 02-09-2024 14:08-0400 Diastolic blood pressure 70 mm[Hg] Alejandra Petznick DO Work Phone: [facility] 02-09-2024 14:08-0400 Heart rate 124 /min Alejandra Kingick DO Work Phone: [facility] 02-09-2024 14:08-0400 SaO2% (BldA) [Mass fraction] 99 % Alejandra Petadrienneick DO Work Phone: [facility] 02-09-2024 14:08-0400 Systolic blood pressure 114 mm[Hg] Alejandra Petznick DO Work Phone: [facility] Healthcare Encounters Encounter Date Encounter Type Care Provider Facility Start: 08-01-2024 End: 08-01-2024 Patient encounter procedure Aurelia Piñaanthony DO Work Phone: [facility] Work Phone: Start: 08-01-2024 End: 08-01-2024 ambulatory Aurelia Piñaanthony DO Work Phone: [facility] Work Phone: Start: 02-09-2024 End: 02-09-2024 ambulatory ALEJANDRA MANN Not Available Start: 02-09-2024 End: 02-09-2024 Office outpatient visit 25 minutes Alejandra Mann DO Work Phone: [facility] [address] Comment on above: Chronic pain of left knee (Primary Dx); Patellofemoral disorder of left knee; Rheumatoid arthritis involving multiple sites with positive rheumatoid factor ([facility]) Start: 12-10-2023 End: 12-10-2023 Patient encounter procedure DO Aurelia Streeter Work Phone: [facility] [address] Work Phone: Start: 12-10-2023 End: 12-10-2023 ambulatory DO Aurelia Streeter Work Phone: [facility] Work Phone: Start: 11-25-2023 End: 11-25-2023 ambulatory ALEJANDRA Brandy PETZNICK Not Available Start: 11-23-2023 End: 11-23-2023 ambulatory ALEJANDRA C PETZNICK Not Available Start: 11-02-2023 End: 11-02-2023 ambulatory ALEJANDRA C PETZNICK Not Available Start: 09-25-2023 End: 09-25-2023 Evaluation and management of inpatient [facility] Start: 09-24-2023 End: 09-25-2023 Evaluation and management of inpatient LEELA Sibley [facility] Start: 04-05-2022 End: 04-05-2022 ambulatory [facility] Facility: Start: 10-02-2021 End: 10-02-[address] JUDE CHANG Facility: Start: 01-15-2018 End: 01-16-2018 Patient encounter DEFAULT PHYSICIAN Facility:[facility] Plan of Treatment Date Care Activity Detail Author Start: 08-01-2024 Plain chest X-ray XR chest 2V* [facility] Start: 08-01-2024 XR Chest 2 Views [facility] Start: 08-01-2024 Aldolase measurement [facility] Start: 02-21-2024 Influenza vaccination Influenza Vaccine (#1) [facility] Start: 12-10-2023 Hemolytic complement CH50 level [facility] Start: 12-10-2023 Hepatitis B core antibody measurement [facility] Start: 12-10-2023 [facility] smooth muscle IgG Ab [Units/volume] in Serum [facility] Albumin [Mass/volume ] in Serum or Plasma [facility] Albumin/Globulin ratio [facility] Aldolase measurement [facility] Angiotensin converti ng enzyme [Enzymatic activity/volume] in Serum or Plasma [facility] Angiotensin converti ng enzyme [Enzymatic activity/volume] in Serum or Plasma [facility] Chromatin Ab [Units/ volume] in Serum or Plasma [facility] Complement C3 [Mass/ volume] in Serum or Plasma [facility] Complement C4 [Mass/ volume] in Serum or Plasma [facility] Electrophoresis: [id number] [facility] Electrophoresis: [id number]-[id number] [facility] Electrophoresis: beta-globulin [facility] Electrophoresis: kris ma globulin [facility] Globulin [Mass/volum e] in Serum [facility] Hepatitis B virus benavidez rface Ab [Presence] in Serum [facility] Hepatitis B virus benavidez rface Ag [Presence] in Serum or Plasma by Immunoassay [facility] Hepatitis C virus Ig G Ab [Presence] in Serum or Plasma by Immunoassay [facility] Homogenous nuclear A b pattern [Titer] in Serum [facility] IgA [Mass/volume] in Serum or Plasma [facility] IgG [Mass/volume] in Serum or Plasma [facility] IgM [Mass/volume] in Serum or Plasma [facility] Immunofixation for Urine [facility] Interferon gamma assay [facility] Lupus anticoagulant [Interpretation] in Platelet poor plasma [facility] Measurement of monoc lonal protein concentration [facility] Mitochondria M2 IgG Ab [Units/volume] in Serum [facility] Mycobacterium tuberc ulosis stimulated gamma interferon [Interpretation] in Blood Qualitative [facility] Mycobacterium tuberc ulosis stimulated gamma interferon release by CD4+ and CD8+ T-cells [Units/volume] corrected for background in Blood [facility] Mycobacterium tuberc ulosis tuberculin stimulated gamma interferon [Presence] in Blood [facility] Myoglobin [Mass/volu me] in Serum or Plasma [facility] Nuclear Ab [Titer] in Serum [facility] Protein [Mass/volume ] in Serum or Plasma [facility] Protein [Mass/volume ] in Urine [facility] Reagin Ab [Presence] in Serum by RPR [facility] Serum immunofixation [facility] Thrombin time [facility] Thyroglobulin Ab [Units/volume] in Serum or Plasma [facility] Thyroperoxidase Ab [Units/volume] in Serum or Plasma [facility] Payers Date Payer Category Payer Medicaid MEDICAID [facility] [place] [id number] 2024-Present [phone] [address] [place] [address] Medicaid [id number] 2023 Self-pay [id number] 2023 Private Health Insurance [facility] [id number] 2023-Present [address] [address] [place] [address] [id number] 2023 Unknown [id number] 1990 Unknown [id number] 2.16.840.1.274036.3.579. 2.593 1990 Unknown [id number] 2.16.840.1.228600.3.579. 2.593 1990 Unknown [id number] 2.16.840.1.245889.3.579. 2.1286 1990 Unknown [id number] 2.16.840.1.547119.3.579. 2.1286 1990 Unknown [id number] 2.16.840.1.610798.3.579. 2.1286 1990 Unknown [id number] 2.16.840.1.476709.3.579. 2.1286 1990 Unknown [id number] 2.16.840.1.078770.3.579. 2.1259 1990 Unknown [id number] 2.16.840.1.663107.3.579. 2.1259 1990 Unknown [id number] 2.16.840.1.551430.3.579. 2.1259 1990 Unknown [id number] 2.16.840.1.632026.3.579. 2.1259 1959 Unknown [id number] 1959 Unknown [id number] Medicaid [place] Advantage [id number] 201 [id number] Unknown Unknown [id number] 2.16840.1.764843.3.579. 2.531 Unknown [id number] 2.16840.1.914827.3.579. 2.531 Unknown [id number] 2.16.840.1.589265.3.579. 2.531 Worker's Compensation Compmanagmnt [facility] s-MCO [id number] Social History Date Type Detail [facility] Work Phone: Start: 1990 Sex Assigned At Male [facility] Start: 02-09-2024 [facility] History of [...] file [facility] Tobacco smoking stat [facility] Unknown if ever smoked [facility] Work Phone: Start: 08-02-2024 End: 08-02-2024 Sex Male (finding) [facility] History of Present illness Narrative 02-09-2024 [...] is currently under the care of a finish remover due to a past positive rheumatoid factor. The finish remover is experimenting with different medications for his knees and joints. He is on disability as per the finish remover's advice. He had taken time off work [...] Diagnosis Date ADHD (attention deficit hyperactivity disorder) ([facility]) Anxiety RA (rheumatoid arthritis) ([facility]) History reviewed. No pertinent surgical history. Depression: [...] orthopedic surgeons. He is currently seeing a finish remover and is on disability due to knee [...] which included preparing to see the patient, [id number] patient care including obtaining/reviewing history and performing appropriate medical examination, completing clinical documentation and coordination of care. - Ambulatory referral to Orthopaedic Surgery; Future 2. Patellofemoral disorder of left knee 3. Rheumatoid arthritis involving multiple sites with positive rheumatoid factor (CMS/HCC) Continue to follow up with Dr Horacio MANN D.O. This note was entered using [employer]. Grammatical and dictation errors maybe present in translation I have reviewed and reconciled the history and medication list with the patient today. documented in this encounter [facility] Healthcare Clinical Note 09-21-2023 Note Date & Type Note Facility 09-21-2023 Note Scheduled EGD/GERD @1045, [facility], Dr. Carrillo, #[id number]. Referral in media 09/16/[address] Arreola. [facility] Evaluation note Note Date & Type Note Facility Evaluation note No assessment [facility]: Evaluation note Note Date & Type Note Facility Evaluation note Diagnosis Chronic pain of left knee- Primary Patellofemoral disorder of left knee Rheumatoid arthritis involving multiple sites with positive rheumatoid factor (CMS/HCC) documented in this encounter [facility] Healthcare Reason for referral (narrative) Consultation (Routine) - Pending Review Note Date & Type Note Facility Reason for referral (narrati ve) Specialty Diagnoses / Procedures Referred By Wood roy Referred To Contact Orthopaedic Surgery Diagnoses Chronic pain of left knee Alejandra Mann DO [address] [address] Referral ID Status Reason Start Date Expiration Date Visits Requested Visits Authorized [id number] Pending Review Specialty Services Required 02/09/2024 08/07/2024 [...] and content) DATE CREATED AUTHOR 01/16/2018 [facility] DATE CREATED AUTHOR AUTHOR'S ORGANIZ ATION 04/13/2022 [facility] DATE CREATED AUTHOR AUTHOR'S ORGANIZ ATION 09/22/2023 [facility] DATE CREATED AUTHOR AUTHOR'S ORGANIZ ATION 09/25/2023 [facility] DATE CREATED AUTHOR AUTHOR'S ORGANIZ ATION 02/11/2024 [facility] DATE CREATED AUTHOR AUTHOR'S ORGANIZ ATION 08/07/2024 [facility] Care Teams (unrecognized sec tion and content) Team Status: Active Member Role Status Dates Aurelia Streeter DO Primary Care Provider Active Team Status: Inactive Member Role Status Dates Aurelia Streeter DO Primary Care Provider Active Start: December 10, 2023 End: December 10, 2023 Alejandra Leonard MD Attending Provider Active St art: December 10, 2023 End: December 10, 2023 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 Specialty Start Date End Date Marshal Streeter DO [address] [facility] [address] [place] [address] PCP - General Family Medicine 02/09/24 Team Status: Active Member Role Status Dates JOSIANE BrownleeC Primary Care Provider Active Team Status: Inactive Member Role Status Dates Aurelia Streeter DO Primary Care Provider Active Start: August 01, 2024 End: August 01, 2024 Alejandra Leonard MD Attending Provider Active St art: August 01, 2024 End: August 01, 2024 Team Status: Inactive Member Role Status Dates ALXEANDR Brownlee Primary Care Provider Active Start: August [...] BE BASED ON THE PRIMARY CLINICAL RECORDS. [employer]. provides no warranty or guarantee of the accuracy or completeness of information in this document.
== END 2024-08-19 14:07 | disposition home or self-care (01) ==
LOC: LAB 14:07 → RAD 14:09
PROVIDERS: Family Provider Family Medicine; PCP Family Medicine; Visit Provider Family Medicine
DX: R53.83 Other fatigue (principal)
CPT/HCPCS: 72040

== ENCOUNTER 2024-09-08 13:45 | Outpatient (OUT) | payer OTHER, SELFPAY ==
--- NOTE | 2024-09-08 13:47 | MR_ITS ---
[address] [address] Patient Name: ADORE ZEPEDA MRN: [id number] date: 1990 Sex: M Assigned Patient Location: MRI Current Patient Location: MRI Accession/Order Number: [id number] Exam Date: 09/08/2024 20:55 Report Date: 09/08/2024 21:04 At the request of: DEBORAH FRAGOSO MD Procedure: MR cervical spine wo con EXAMINATION: MRI OF THE CERVICAL SPINE WITHOUT CONTRAST CLINICAL DATA: Cervical Radiculopathy COMPARISON: Cervical spine x-rays 08/19/2024 TECHNIQUE: Multiecho imaging was performed in the sagittal and axial plane without contrast administration. FINDINGS: The craniocervical junction is maintained. Cervical vertebral heights, alignment, and bone marrow signal is unremarkable. Cervical cord demonstrates normal signal and morphology. No prevertebral soft tissue swelling. Suspected involutional changes of the cerebellum. C2-C3: No focal disc disease, central canal, or neural foraminal narrowing. C3-C4: Broad-based disc bulge with uncovertebral spurring. Iqgd-uu-rimmkary right and mild left neural foraminal narrowing. Canal is patent. C4-C5: No significant disease, central canal, or neural foraminal narrowing identified. C5-6: Minimal broad-based disc osteophyte complex. There is bilateral uncovertebral spurring, greatest right. There is moderate to severe right-sided and [id number]-[id number]-[id number] left-sided neural from narrowing. Minimal ventral canal effacement. C6-7: No significant disc disease. Minimal uncovertebral spurring resulting in mild bilateral neural foraminal narrowing. There is minimal facet arthropathy. C7-T1: Mild facet arthropathy. No significant disc disease, central canal or neural foraminal narrowing identified. MR/MR cervical spine wo con IMPRESSION: Multilevel degenerative changes greatest at C5-C6 and C3-C4. No high-grade canal narrowing. Impression dictated by: Eric Malagon M.D.09/08/2024 9:04 PM Dictation Location: [place] [address] Electronically authenticated by: [id number] Y Date: 09/08/2024 21:04
== END 2024-09-08 13:46 | disposition home or self-care (01) ==
LOC: MRI 13:45
PROVIDERS: Family Provider Family Medicine; PCP Family Medicine; Visit Provider Family Medicine
DX: M54.12 Radiculopathy, cervical region (principal); M50.30 Other cervical disc degeneration, unspecified cervical region
CPT/HCPCS: 72141

== ENCOUNTER 2024-09-23 13:54 | Outpatient (RCR) | payer OTHER, SELFPAY | END 2024-12-13 07:45 | disposition home or self-care (01) | LOC: PT 13:54 | PROVIDERS: Family Provider Family Medicine; PCP Family Medicine; Visit Provider Family Medicine | DX: R42 Dizziness and giddiness (principal); M48.02 Spinal stenosis, cervical region; M62.81 Muscle weakness (generalized); M25.512 Pain in left shoulder | CPT/HCPCS: 73030; 97110; 97112; 97140; 97161; 97163 ==

== ENCOUNTER 2024-10-20 08:48 | Emergency (ER) | payer OTHER, SELFPAY ==
[2024-10-20 09:02] VITALS: BP 143/94; PULSE 76; TEMP 36.7; O2SAT 98; BMI 24.0
--- NOTE | 2024-10-20 09:23 | ED_ITS ---
HPI HPI - General Adult General Chief complaint: Nausea/Vomiting/Diarrhea Stated complaint: CAN'T KEEP ANYTHING DOWN Time Seen by Provider: 10/20/24 08:51 Source: patient Mode of arrival: walk-in Limitations: no limitations History of Present Illness HPI narrative: This 34-year-old male presents to the emergency department with a chief complaint of vomiting. He states this happened once a day after the morning meal and has been going on for the last 2 weeks. He has had this off-and-on he states since childhood. He underwent EGD 2 years ago and states that no specific findings were reported. He states he has a history of cervical spinal stenosis and bipolar disorder. Medications are as listed. No recent change in the dosage of his medications is reported. He denies tobacco, alcohol or drug use. Related Data Home Medications ?Medication ?Instructions ?Recorded ?Confirmed aripiprazole 10 mg tablet mg 10/20/24 lamotrigine 100 mg tablet mg 10/20/24 meclizine 25 mg tablet mg 10/20/24 methylphenidate HCl 27 mg mg PO 10/20/24 tablet,extended release 24 hr pantoprazole 40 mg tablet,delayed mg PO 10/20/24 release Previous Rx's ?Medication ?Instructions ?Recorded ondansetron HCl 4 mg tablet 4 mg PO DAILY #14 tabs 07/16 Allergies Allergy/AdvReac Type Severity Reaction Status Date / Time No Known Drug Allergies Allergy Verified 10/20/24 09:05 Opioid HPI Opioid Management Most Recent Opioid Data: Ur Phencyclidine Scrn, (NEGATIVE) Negative Today, 09:30 Review of Systems ROS Status of ROS 10 or more systems reviewed and unremark able except as noted in history and below PFSH PFSH Social History Little interest or pleasure in doing things: not at all Feeling down, depressed, or hopeless: not at all Exam Narrative Exam Narrative: Patient's vital signs are stable. His oral cavity is moist. HEENT exam is normal to inspection. Neck is supple. Lung sounds are clear to auscultation bilaterally with good air entry. Heart has regular rate and rhythm. S1 and S2 are normal. Abdomen is soft nontender and there is no tenderness or organomegaly. He moves all extremities actively. Constitutional Vital Signs, click to edit/add: Last Vital Signs Temp 98.0 F 10/20/24 09:02 Pulse 76 10/20/24 09:02 Resp 18 10/20/24 09:02 BP 143/94 H 10/20/24 09:02 Pulse Ox 98 10/20/24 09:02 O2 Del Method Room Air 10/20/24 09:02 Course Vital Signs Vital signs: Vital Signs Temperature 98.0 F 10/20/24 09:02 Pulse Rate 76 10/20/24 09:02 Respiratory Rate 18 10/20/24 09:02 Blood Pressure 143/94 H 10/20/24 09:02 Pulse Oximetry 98 10/20/24 09:02 Oxygen Delivery Method Room Air 10/20/24 09:02 Temperature 98.0 F 10/20/24 09:02 Pulse Rate 76 10/20/24 09:02 Respiratory Rate 18 10/20/24 09:02 Blood Pressure 143/94 H 10/20/24 09:02 Pulse Oximetry 98 10/20/24 09:02 Oxygen Delivery Method Room Air 10/20/24 09:02 Medical Decision Making MDM Narrative Medical decision making narrative: Baseline labs are all unremarkable and not pointing to any specific diagnosis. Patient is placed on Zofran to be taken in the morning to prevent nausea and vomiting in the morning. At his request a work note was also provided to him. Follow-up is with his PCP and he is to return for worsening symptoms. Lab Data Labs: Lab Results 10/20/24 10/20/24 Range/Units 09:30 09:36 WBC 4.8 (4.0-11.0) 10^3/uL RBC 4.03 L (4.70-6.10) 10^6/uL Hgb 12.1 L (14.0-18.0) g/dL Hct 35.8 L (42.0-54.0) % MCV 88.8 (80.0-94.0) fL MCH 30.0 (25.9-34.0) pg MCHC 33.8 (29.9-35.2) g/dL RDW 13.8 (11.0-15.0) % Plt Count 266 (150-450) 10^3/uL MPV 7.9 L (9.5-13.5) fL Neut % (Auto) 50.9 (43.0-75.0) % Lymph % (Auto) 35.4 (20.5-60.0) % [place] % (Auto) 10.4 (1.7-12.0) % Eos % (Auto) 2.7 (0.9-7.0) % Baso % (Auto) 0.4 (0.2-2.0) % Neut # (Auto) 2.4 (1.4-6.5) 10^3/uL Lymph # (Auto) 1.7 (1.2-3.8) 10^3/uL [place] # (Auto) 0.5 (0.3-0.8) 10^3/uL Eos # (Auto) 0.1 (0.0-0.7) 10^3/uL Baso # (Auto) 0.0 (0.0-0.1) 10^3/uL Abs Immat Gran (auto) 0.01 (0.00-0.03) 10^3/uL Imm/Tot Granulo (auto) 0.2 (0.0-0.5) % Sodium 145 (136-145) mmol/L Potassium 4.2 (3.5-5.1) mmol/L Chloride 106 (98-107) mmol/L Carbon Dioxide 31.0 (21.0-32.0) mmol/L Anion Gap 12.2 BUN 27.0 H (7.0-18.0) mg/dL Creatinine 1.02 (0.70-1.30) mg/dL Est GFR ( Amer) >60 (>=60 mL/min/1.73m^2) Est GFR (Non-Af Amer) >60 (>=60 mL/min/1.73m^2) BUN/Creatinine Ratio 26.5 Glucose 96 (74-106) mg/dL Calcium 9.0 (8.5-10.1) mg/dL Total Bilirubin 0.5 (0.2-1.0) mg/dL AST 15 (15-37) U/L ALT 19 (16-63) U/L Alkaline Phosphatase 56 (46-116) U/L Total Protein 6.4 (6.4-8.2) g/dL Albumin 4.1 (3.4-5.0) g/dL Globulin 2.3 g/dL Albumin/Globulin Ratio 1.8 Lipase 23.0 (16.0-77.0) U/L Urine Color Lt. yellow (YELLOW) Urine Clarity Clear (CLEAR) Urine pH 7.5 (5.0-9.0) Ur Specific [place] 1.015 (1.005-1.025) Urine Protein Negative (NEG/TRACE) mg/dL Urine Glucose (UA) Negative (NEGATIVE) mg/dL Urine Ketones Negative (NEGATIVE) mg/dL Urine Occult Blood Negative (NEGATIVE) Urine Nitrite Negative (NEGATIVE) Urine Bilirubin Negative (NEGATIVE) Urine Urobilinogen 0.2 (0.2-1.0) EU/dL Ur Leukocyte Esterase Negative (NEGATIVE) Urine Opiates Screen Negative (NEGATIVE) Ur Buprenorphine Scrn Negative (NEGATIVE) Ur Oxycodone Screen Negative (NEGATIVE) Urine Methadone Screen Negative (NEGATIVE) Ur Barbiturates Screen Negative (NEGATIVE) U Tricyclic Antidepress Negative (NEGATIVE) Ur Phencyclidine Scrn Negative (NEGATIVE) Ur Amphetamines Screen Negative (NEGATIVE) U Methamphetamines Scrn Negative (NEGATIVE) U Benzodiazepines Scrn Negative (NEGATIVE) Urine Cocaine Screen Negative (NEGATIVE) U Cannabinoids Screen Negative (NEGATIVE) Discharge Plan Discharge Stand Alone Forms: Work/School Release Chief Complaint: Nausea/Vomiting/Diarrhea Clinical Impression: Nausea & vomiting Qualifiers: Vomiting type: unspecified Qualified Code(s): R11.2 - Nausea with vomiting, unspecified Patient Disposition: Home, Self-Care Time of Disposition Decision: 10:45 Condition: Good Mode of Transportation: Private Vehicle Prescriptions / Home Meds: New ondansetron HCl 4 mg tablet 4 mg PO DAILY Qty: 14 0RF No Action meclizine 25 mg tablet pantoprazole 40 mg tablet,delayed release (DR/EC) PO lamotrigine 100 mg tablet methylphenidate HCl 27 mg tablet extended release 24hr PO aripiprazole 10 mg tablet Print Language: Uzbek Instructions: Acute Nausea and Vomiting (ED) Additional Instructions: Take Zofran in the morning. Return for worsening symptoms. Referrals: Augustine Fuentes MD [Primary Care Provider, Family Practice] - 1 week Discharge Date/Time: 10/20/24 11:13
[2024-10-20] MEDS: ONDANSETRON 4 MG RAPDIS TABLET SL (09:29)
[2024-10-20 09:42] LABS: Basophils Percent Auto 0.4 % (0.2-2.0); Eosinophils Absolute Auto 0.1 10^3/uL (0.0-0.7); Eosinophils Percent Auto 2.7 % (0.9-7.0); Hematocrit 35.8 % (42.0-54.0); Hemoglobin 12.1 g/dL (14.0-18.0); Immature Granulocytes Abs Auto 0.01 10^3/uL (0.00-0.03); Immature Granulocytes Pct Auto 0.2 % (0.0-0.5); Lymphocytes Absolute Auto 1.7 10^3/uL (1.2-3.8); Lymphocytes Percent Auto 35.4 % (20.5-60.0); Mean Corpuscular HGB Conc 33.8 g/dL (29.9-35.2); Mean Corpuscular Volume 88.8 fL (80.0-94.0); Mean Platelet Volume 7.9 fL (9.5-13.5); Monocytes Absolute Auto 0.5 10^3/uL (0.3-0.8); Monocytes Percent Auto 10.4 % (1.7-12.0); Neutrophils Absolute Auto 2.4 10^3/uL (1.4-6.5); Neutrophils Percent Auto 50.9 % (43.0-75.0); Platelet Count 266 10^3/uL (150-450); Red Blood Count 4.03 10^6/uL (4.70-6.10); Red Cell Distribution Width 13.8 % (11.0-15.0); White Blood Count 4.8 10^3/uL (4.0-11.0)
[2024-10-20 09:46] LABS: Bilirubin Urine NEGATIVE (NEGATIVE); Blood Urine NEGATIVE (NEGATIVE); Clarity Urine CLEAR (CLEAR); Color Urine LT. YELLOW (YELLOW); Glucose Urine UA NEGATIVE (NEGATIVE); Ketones Urine NEGATIVE (NEGATIVE); Leukocyte Esterase Urine NEGATIVE (NEGATIVE); Nitrite Urine NEGATIVE (NEGATIVE); Protein Urine NEGATIVE (NEG/TRACE); Specific Gravity Urine 1.015 (1.005-1.025); Urine Microscopic Indicated NO; Urobilinogen Urine 0.2 EU/dL (0.2-1.0); pH Urine 7.5 (5.0-9.0)
[2024-10-20 09:56] LABS: Amphetamine Screen Urine NEGATIVE (NEGATIVE); Barbiturates Screen Urine NEGATIVE (NEGATIVE); Benzodiazepines Screen Urine NEGATIVE (NEGATIVE); Buprenorphine Screen Urine NEGATIVE (NEGATIVE); Cannabinoid Screen Urine NEGATIVE (NEGATIVE); Cocaine Screen Urine NEGATIVE (NEGATIVE); Methadone Screen Urine NEGATIVE (NEGATIVE); Methamphetamines Screen Urine NEGATIVE (NEGATIVE); Opiate Screen Urine NEGATIVE (NEGATIVE); Oxycodone Screen Urine NEGATIVE (NEGATIVE); Phencyclidine Screen Urine NEGATIVE (NEGATIVE); Tricyclic Antidepressant Urine NEGATIVE (NEGATIVE)
[2024-10-20 10:00] LABS: Alanine Aminotransferase 19 U/L (16-63); Albumin Globulin Ratio 1.8; Albumin Level 4.1 g/dL (3.4-5.0); Alkaline Phosphatase 56 U/L (46-116); Anion Gap 12.2; Aspartate Amino Transferase 15 U/L (15-37); BUN Creatinine Ratio 26.5; Bilirubin Total 0.5 mg/dL (0.2-1.0); Chloride 106 mmol/L (98-107); Estimated GFR (African America >60 (>=60 mL/min/1.73m^2); Estimated GFR (Non-African Ame >60 (>=60 mL/min/1.73m^2); Globulin 2.3 g/dL; Glucose 96 mg/dL (74-106); Potassium 4.2 mmol/L (3.5-5.1); Sodium 145 mmol/L (136-145); Total Protein 6.4 g/dL (6.4-8.2)
== END 2024-10-20 11:13 | disposition home or self-care (01) ==
PROVIDERS: Emergency Provider Emergency Medicine; Family Provider Family Medicine; PCP Family Medicine
DX: R11.2 Nausea with vomiting, unspecified (principal); F31.9 Bipolar disorder, unspecified; M48.02 Spinal stenosis, cervical region
CPT/HCPCS: 36415; 80053; 80307; 81003; 83690; 85025; 99283; Q0162

== ENCOUNTER 2024-10-26 07:30 | Outpatient (OUT) | payer OTHER, SELFPAY ==
[2024-10-26 07:51] LABS: Basophils Percent Auto 0.8 % (0.2-2.0); Eosinophils Absolute Auto 0.3 10^3/uL (0.0-0.7); Eosinophils Percent Auto 4.9 % (0.9-7.0); Hematocrit 37.1 % (42.0-54.0); Hemoglobin 12.5 g/dL (14.0-18.0); Immature Granulocytes Abs Auto 0.01 10^3/uL (0.00-0.03); Immature Granulocytes Pct Auto 0.2 % (0.0-0.5); Lymphocytes Absolute Auto 1.9 10^3/uL (1.2-3.8); Lymphocytes Percent Auto 35.8 % (20.5-60.0); Mean Corpuscular HGB Conc 33.7 g/dL (29.9-35.2); Mean Corpuscular Hemoglobin 30.8 pg (25.9-34.0); Mean Corpuscular Volume 91.4 fL (80.0-94.0); Mean Platelet Volume 8.2 fL (9.5-13.5); Monocytes Absolute Auto 0.6 10^3/uL (0.3-0.8); Monocytes Percent Auto 11.6 % (1.7-12.0); Neutrophils Absolute Auto 2.5 10^3/uL (1.4-6.5); Neutrophils Percent Auto 46.7 % (43.0-75.0); Platelet Count 290 10^3/uL (150-450); Red Blood Count 4.06 10^6/uL (4.70-6.10); Red Cell Distribution Width 13.6 % (11.0-15.0); White Blood Count 5.3 10^3/uL (4.0-11.0)
[2024-10-26 08:29] LABS: Alanine Aminotransferase 21 U/L (16-63); Albumin Globulin Ratio 1.5; Alkaline Phosphatase 70 U/L (46-116); Amylase 38 U/L (25-115); Anion Gap 10.3; Aspartate Amino Transferase 18 U/L (15-37); BUN Creatinine Ratio 15.2; Bilirubin Total 0.3 mg/dL (0.2-1.0); Calcium 9.4 mg/dL (8.5-10.1); Carbon Dioxide 33.8 mmol/L (21.0-32.0); Chloride 102 mmol/L (98-107); Estimated GFR (African America >60 (>=60 mL/min/1.73m^2); Estimated GFR (Non-African Ame >60 (>=60 mL/min/1.73m^2); Globulin 2.7 g/dL; Glucose 95 mg/dL (74-106); Potassium 4.1 mmol/L (3.5-5.1); Sodium 142 mmol/L (136-145); Total Protein 6.7 g/dL (6.4-8.2)
== END 2024-10-26 07:31 | disposition home or self-care (01) ==
LOC: LAB 07:33
PROVIDERS: Family Provider Family Medicine; PCP Family Medicine; Visit Provider Family Medicine
DX: K52.9 Noninfective gastroenteritis and colitis, unspecified (principal)
CPT/HCPCS: 36415; 80053; 82150; 83690; 85025

== ENCOUNTER 2024-10-26 07:42 | Outpatient (RCR) | payer OTHER, SELFPAY ==
[2024-10-26 07:45] VITALS: BP 151/96; PULSE 65; TEMP 36.6; O2SAT 95
[2024-10-26] MEDS: 0.9 % SODIUM CHLORIDE 2,000 ML 1000 ML IV (07:48)
== END 2024-10-28 09:40 | disposition home or self-care (01) ==
LOC: INF 07:42
PROVIDERS: Family Provider Family Medicine; PCP Family Medicine; Visit Provider Family Medicine
DX: E86.0 Dehydration (principal); K52.9 Noninfective gastroenteritis and colitis, unspecified
CPT/HCPCS: 36415; 80053; 82150; 83690; 85025; 96360; 96361

== ENCOUNTER 2024-11-04 10:41 | Outpatient (OUT) | payer OTHER, SELFPAY ==
--- NOTE | 2024-11-04 10:46 | XR_ITS ---
The [place] [id number] Patient Name: ADORE ZEPEDA MRN: [id number] date: 1990 Sex: M Assigned Patient Location: [facility] Current Patient Location: [facility] Accession/Order Number: [id number] Exam Date: 11/04/2024 12:07 Report Date: 11/04/2024 12:09 At the request of: DEBORAH FRAGOSO MD Procedure: XR shoulder LT min 2V XR shoulder LT min 2V 11/04/2024 10:54 AM SIGNS AND SYMPTOMS: ^Left Shoulder Pain PROTOCOL: Frontal, Grashey, and scapular Y views of the left shoulder COMPARISON: None FINDINGS: The glenohumeral joint and acromioclavicular joint are preserved. Visualized left hemithorax is grossly intact. No fracture or dislocation. XR/XR shoulder LT min 2V IMPRESSION: Normal radiographs of the left shoulder. Impression dictated by: Tony Bejarano M.D. 11/04/2024 12:09 PM Dictation Location: [facility] Electronically authenticated by: [id number] Y Date: 11/04/2024 12:09
== END 2024-11-04 10:42 | disposition home or self-care (01) ==
LOC: RAD 10:42
PROVIDERS: Family Provider Family Medicine; PCP Family Medicine; Visit Provider Family Medicine
DX: M25.512 Pain in left shoulder (principal)
CPT/HCPCS: 73030

== ENCOUNTER 2024-11-04 13:58 | Outpatient (RCR) | payer OTHER, SELFPAY | END 2024-12-10 07:21 | disposition home or self-care (01) | LOC: PT 13:58 | PROVIDERS: Family Provider Family Medicine; PCP Family Medicine; Visit Provider Family Medicine | DX: M25.512 Pain in left shoulder (principal); R42 Dizziness and giddiness; M48.02 Spinal stenosis, cervical region; M62.81 Muscle weakness (generalized) | CPT/HCPCS: 73030; 97110; 97112; 97161 ==